=== PATIENT | male | born 1955 | race Caucasian/White ===

== ENCOUNTER 2018-10-06 01:33 | Outpatient (CLI) | payer BC, SELFPAY ==
--- NOTE | 2018-10-06 07:43 | DI.US_ITS ---
SYMPTOM/DIAGNOSIS: RT EPIDIDYMAL MASS, N50.9 TESTICULAR ULTRASOUND: The right testicle measures 4.2 by 3.4 by 2.7 cm. No evidence of a testicular mass is seen. There is normal blood flow to the right testicle. No evidence of torsion is seen. The left testicle measures 4.5 by 3.1 by 2.3 cm. There is normal blood flow. No evidence of torsion. No intratesticular mass is seen. The right epididymis shows a collection of at least three cysts in the proximal body of the right epididymis, the largest measures 1.3 cm. There is also a 0.9 by 0.6 cm. cyst adjacent to the body of the right epididymis. The left epididymis is unremarkable save for a 0.3 cm. epididymal cyst. IMPRESSION: 1. No evidence of an intratesticular mass. 2. Several cysts associated with the right epididymis. No definite solid epididymal mass or abnormal blood flow is seen.
== END 2018-10-06 01:53 ==
PROVIDERS: PCP Family Medicine; Visit Provider Family Medicine
DX: N50.9 Disorder of male genital organs, unspecified (principal); N50.3 Cyst of epididymis
CPT/HCPCS: 76870

== ENCOUNTER 2019-03-01 12:02 | Outpatient (REF) | payer BC, SELFPAY ==
[2019-03-01 22:30] LABS: TSH (W/Ref FT4) 1.53 uIU/mL (0.358-3.74)
[2019-03-03 10:33] LABS: PSA, Screening 3.8 ng/ml (0-4.5)
== END 2019-03-01 12:22 ==
LOC: NCHCN 12:02
PROVIDERS: PCP Family Medicine; Visit Provider Family Medicine
DX: E04.1 Nontoxic single thyroid nodule (principal); Z00.00 Encounter for general adult medical examination without abnormal findings; Z12.5 Encounter for screening for malignant neoplasm of prostate
CPT/HCPCS: 84153; 84443

== ENCOUNTER 2019-04-11 00:59 | Outpatient (CLI) | payer BC, SELFPAY ==
--- NOTE | 2019-04-11 11:53 | DI.MRI_ITS ---
SYMPTOM/DIAGNOSIS: LOW BACK PAIN, M54.5, RADICULAR SYMPTOMS OFF AND ON, S/P NEUROSURGERY, DDD, SPURS, BILAT LEG PAIN LUMBAR SPINE MRI: Comparison is made with plain films dated 11/25/16. T 1, T 2 and STIR sagittal and T 1 and T 2 axial as well as T 1 coronal sequences were performed. There is mild bulging of the L 1-2 disc and mild facet degenerative changes with no significant central canal stenosis or neural foraminal narrowing. At L 2-3, there is asymmetric narrowing of the disc with prominent osteophytes projecting toward the left as well as anteriorly. There is marked loss of disc height as well as broad based disc bulging. There are mild facet degenerative changes and mild ligamentous hypertrophy creating mild central canal stenosis. There is mild right and moderate left neural foraminal narrowing. At L 3-4, there is also severe narrowing of the disc, prominent endplate osteophytes and degenerative signal changes as well as broad based disc bulging. There are mild facet joint degenerative changes and ligamentous hypertrophy combining with the disc bulging to produce moderate central canal stenosis. There is moderate left neural foraminal narrowing. There is a small amount of fluid in the facet joints at this level. At L 4-5, there is loss of disc height eccentric toward the right side with prominent right sided osteophytes and loss of disc height. There is broad based disc bulging. There are also facet degenerative changes which combine to produce moderate central canal stenosis. There is severe right sided neural foraminal narrowing and mild left sided neural foraminal narrowing. The L 5-S 1 disc shows mild loss of height and moderate concentric disc bulging. There are mild facet degenerative changes. There is moderate bilateral neural foraminal encroachment and mild central canal stenosis. A cyst is incidentally noted at the lower pole of the left kidney. The conus medullaris appears normal. The aorta is normal in diameter. IMPRESSION: Multi level degenerative disc changes and facet degenerative changes causing neural foraminal narrowing as well as central canal stenosis, most severe at L 3-4 and L 4-5.
== END 2019-04-11 01:19 ==
PROVIDERS: PCP Family Medicine; Visit Provider Family Medicine
DX: M54.5 Low back pain (principal); M79.604 Pain in right leg; M79.605 Pain in left leg; M51.17 Intervertebral disc disorders with radiculopathy, lumbosacral region; M48.07 Spinal stenosis, lumbosacral region; Z98.890 Other specified postprocedural states
CPT/HCPCS: 72148

== ENCOUNTER 2021-01-24 12:33 | Outpatient (REF) | payer BC, SELFPAY ==
[2021-01-24 15:13] LABS: HCT 44.1 % (40.0-50.0); MCH 33.7 pg (27.0-33.0); MCV 99.1 fL (80-95); MPV 10.2 fL (8.0-11.0); Platelet Count 216 10^3/uL (130-400); RBC 4.45 10^6/uL (4.36-5.78); RDW 13.2 % (11.8-14.1); RDW-SD 48.4 fL; WBC 5.32 10^3/uL (4.4-10.8)
[2021-01-24 15:55] LABS: Hemoglobin A1C 5.3 % (<5.7)
[2021-01-24 16:31] LABS: ALT 62 U/L (16-63); AST 52 U/L (15-37); Albumin 3.8 g/dL (3.4-5.0); Alkaline Phosphatase 68 U/L (46-116); Anion Gap 12.4 mmol/L (3-11); BUN 8 mg/dL (7-18); Bilirubin, Total 0.4 mg/dL (0.2-1.0); CO2 22.6 mmol/L (21.0-32.0); CREATININE 0.9 mg/dL (0.70-1.30); Chloride 106 mmol/L (98-107); Glucose 87 mg/dL (74-106); Potassium 4.5 mmol/L (3.5-5.1); Sodium 141 mmol/L (136-145); Total Protein 7.8 g/dL (6.4-8.2); Vitamin B12 426 pg/mL (193-986)
== END 2021-01-24 12:34 | disposition home or self-care (01) ==
LOC: NCHCN 12:33
PROVIDERS: PCP Family Medicine; Visit Provider Family Medicine
DX: G62.9 Polyneuropathy, unspecified (principal); Z01.818 Encounter for other preprocedural examination
CPT/HCPCS: 80053; 85027; 82607; 83036; 84443

== ENCOUNTER 2021-03-08 04:30 | Outpatient (CLI) | payer BC, SELFPAY ==
--- NOTE | 2021-03-08 09:02 | DI.RAD_ITS ---
Exam(s) XR LUMBAR SPINE 1V ONLY EXAM: XR LUMBAR SPINE 1V ONLY CLINICAL HISTORY: S/P LUMBAR FUSION, Z98.1. TECHNIQUE: 2D digital imaging was performed. Two upright lateral views were performed. COMPARISON: CR LUMBAR SPINE COMPLETE from 11/25/2016 CR LUMBAR SPINE COMPLETE from 11/25/2016 FINDINGS: There is been posterior fusion with hardware in place from the L4 through S1 levels compared with the previous exam. A disc spacer is seen at L5-S1. Degenerative disc changes with endplate osteophytes are noted throughout. The aorta is calcified and appears normal in diameter. IMPRESSION: Degenerative and postsurgical changes. DATA REPOSITORY: RADIATION DOSE DELIVERED:
== END 2021-03-08 04:50 ==
PROVIDERS: PCP Family Medicine; Visit Provider Physician Assistant Surgical
DX: Z98.1 Arthrodesis status (principal); M51.37 Other intervertebral disc degeneration, lumbosacral region
CPT/HCPCS: 72020

== ENCOUNTER 2021-05-14 01:31 | Outpatient (CLI) | payer BC, SELFPAY ==
--- NOTE | 2021-05-14 09:14 | DI.RAD_ITS ---
Exam(s) XR LUMBAR SPINE COMPLETE EXAM: XR LUMBAR SPINE COMPLETE CLINICAL HISTORY: S/P LUMBAR FUSION,Z98.1. TECHNIQUE: 2D digital imaging was performed. COMPARISON: CR LUMBAR SPINE COMPLETE from 11/25/2016 CR LUMBAR SPINE COMPLETE from 11/25/2016 CR XR LUMBAR SPINE 1V ONLY from 03/08/2021 CR XR LUMBAR SPINE 1V ONLY from 03/08/2021 FINDINGS: Posterior fusion hardware is again noted spanning L4 through S1, unchanged.. A disc spacer is seen a t L5-S1. There are severe degenerative disc changes throughout. There is no evidence of compression fracture. Multiple surgical clips are noted in the right upper quadrant. The aorta shows calcifica tion but is normal in diameter. IMPRESSION: Stable appearance of degenerative changes and lower lumbar spine fusion hardware. DATA REPOSITORY: RADIATION DOSE DELIVERED:
== END 2021-05-14 01:51 ==
PROVIDERS: PCP Family Medicine; Visit Provider Neurological Surgery
DX: M47.816 Spondylosis without myelopathy or radiculopathy, lumbar region (principal); M43.26 Fusion of spine, lumbar region; Z98.1 Arthrodesis status
CPT/HCPCS: 72110

== ENCOUNTER 2021-08-30 02:13 | Outpatient (CLI) | payer BC, SELFPAY ==
--- NOTE | 2021-08-30 08:30 | DI.RAD_ITS ---
Exam(s) XR LUMBAR SPINE FLEX/EXT ONLY EXAM: XR LUMBAR SPINE FLEX/EXT ONLY CLINICAL HISTORY: LUMBAR FACET ARTHROPATHY M47.816 TECHNIQUE: 2D digital imaging was performed. Lateral flexion and extension views were performed. COMPARISON: CR XR LUMBAR SPINE COMPLETE from 05/14/2021 FINDINGS: Posterior fusion hardware is again noted spanning L4 through S1. Disc spacer is seen at L5-S1. The hardware appears intact. There is no change in the alignment. No significant subluxation with flexi on or extension. Somewhat limited range of motion. Degenerative disc changes at the more superior l evels. IMPRESSION: Stable appearance of posterior fusion hardware from L4 through S1.
== END 2021-08-30 02:33 ==
PROVIDERS: PCP Family Medicine; Visit Provider Neurological Surgery
DX: M47.816 Spondylosis without myelopathy or radiculopathy, lumbar region (principal); Z98.1 Arthrodesis status
CPT/HCPCS: 72120

== ENCOUNTER 2021-12-03 13:28 | Outpatient (REF) | payer BC, SELFPAY ==
[2021-12-03 19:21] LABS: HCT 44.8 % (40.0-50.0); MCH 33.5 pg (27.0-33.0); MCHC 33.5 % (32.0-36.0); MPV 11.1 fL (8.0-11.0); Platelet Count 259 10^3/uL (130-400); RBC 4.48 10^6/uL (4.36-5.78); RDW 13.2 % (11.8-14.1); RDW-SD 49.6 fL; WBC 5.85 10^3/uL (4.4-10.8)
[2021-12-03 19:31] LABS: ALT 35 U/L (16-63); AST 35 U/L (15-37); Albumin 3.8 g/dL (3.4-5.0); Alkaline Phosphatase 79 U/L (46-116); Anion Gap 11.6 mmol/L (3-11); BUN 9 mg/dL (7-18); Bilirubin, Total 0.4 mg/dL (0.2-1.0); CO2 24.4 mmol/L (21.0-32.0); CREATININE 0.8 mg/dL (0.70-1.30); Calcium 9.2 mg/dL (8.5-10.1); Chloride 103 mmol/L (98-107); Glucose 85 mg/dL (74-106); Potassium 4.3 mmol/L (3.5-5.1); Sodium 139 mmol/L (136-145); Total Protein 7.8 g/dL (6.4-8.2)
[2021-12-04 21:44] LABS: PSA, Screening 3.1 ng/mL (0.0-4.5)
== END 2021-12-03 13:29 | disposition home or self-care (01) ==
LOC: NCHCN 13:28
PROVIDERS: PCP Family Medicine; Visit Provider Family Medicine
DX: Z00.00 Encounter for general adult medical examination without abnormal findings (principal); Z01.818 Encounter for other preprocedural examination; Z12.5 Encounter for screening for malignant neoplasm of prostate
CPT/HCPCS: 80053; 84153; 85027

== ENCOUNTER 2022-01-09 01:39 | Outpatient (CLI) | payer BC, SELFPAY ==
--- NOTE | 2022-01-09 | DI.RAD_ITS ---
Exam(s) XR LUMBAR SPINE 1V ONLY EXAM: XR LUMBAR SPINE 1V ONLY CLINICAL HISTORY: LUMBAR PARS DEFECT M43.06 POSTPROCEDURAL STATUS. TECHNIQUE: 2D digital imaging was performed. COMPARISON: CR XR LUMBAR SPINE FLEX/EXT ONLY from 08/30/2021 FINDINGS: Two views performed standing. Again noted is posterior fusion hardware, however, there appears to have been possible revision with the fusion rods and with the lower most screw being at the S2 level. Distal tip of this S2 screw ext ends slightly beyond the anterior cortex of the sacrum. Also intervertebral disc space device at L5-S1 without retropulsion. There are bilateral intrapedicu lar screws at all 3 levels. At L L4 and L5 levels these appear to be in satisfactory position relati ve to the superior endplates. The fused levels appear unchanged. Advanced this space narrowing is noted at 1 level above the fusio n (L3-4). Also significant degenerative disc disease again noted unchanged at L2-3. L1-2 level cont inues to exhibit normal disc height. IMPRESSION: Compared to 08/30/2021 there appears to been interval revision of posterior fusion hardware as descri bed above. There is no evidence of hardware loosening no radiographic evidence of osteomyelitis. Th e lower most screw (which is at the S2 level) is extending slightly anterior to the anterior cortex o f the sacrum. DATA REPOSITORY: RADIATION DOSE DELIVERED:
== END 2022-01-09 01:59 ==
PROVIDERS: PCP Family Medicine; Visit Provider Thoracic Surgery (Cardiothoracic Vascular Surgery)
DX: Z98.890 Other specified postprocedural states (principal)
CPT/HCPCS: 72020

== ENCOUNTER → 2022-03-13 01:40 | Outpatient (CLI) | payer BC, SELFPAY ==
--- NOTE | 2022-03-13 11:14 | DI.RAD_ITS ---
Exam(s) XR LUMBAR SPINE FLEX/EXT ONLY EXAM: XR LUMBAR SPINE FLEX/EXT ONLY INDICATION: S/P LUMBAR FUSION, Z98.1. COMPARISON: CR XR LUMBAR SPINE FLEX/EXT ONLY from 08/30/2021 CR XR LUMBAR SPINE 1V ONLY from 01/09/2022 TECHNIQUE: 2D digital imaging was performed. Two views were obtained. FINDINGS: Vertical rods and pedicle screws are seen from L4 through S2. Marked degenerative changes are seen i n the lower lumbar spine with disc space narrowing, facet arthropathy and endplate osteophytes. No s ignificant subluxation is seen with flexion or extension. Atherosclerosis is seen in the soft tissue s. IMPRESSION: DATA REPOSITORY: RADIATION DOSE DELIVERED:
== END ==
PROVIDERS: PCP Family Medicine; Visit Provider Physician Assistant Medical
DX: Z98.1 Arthrodesis status (principal); M51.36 Other intervertebral disc degeneration, lumbar region; M47.816 Spondylosis without myelopathy or radiculopathy, lumbar region
CPT/HCPCS: 72120

== ENCOUNTER 2022-08-14 08:05 | Outpatient (CLI) | payer BC, SELFPAY ==
[2022-08-14 08:12] VITALS: BP 138/85; PULSE 72; RESP 20; TEMP 36.8; O2SAT 96
--- NOTE | 2022-08-14 08:45 | DI.RAD_ITS ---
Exam(s) XR PAIN CLINIC LUMBAR SP 2V EXAM: XR PAIN CLINIC LUMBAR SP 2V CLINICAL HISTORY: Dx: Lumbar Radiculopathy TECHNIQUE: 2D and realtime digital imaging was performed. COMPARISON: No exams were available for comparison FINDINGS: C-arm fluoroscopy was utilized by Dr. Partida during lumbar epidural injection. Hard copy shows injecti on at the sacral level. IMPRESSION: RADIATION DOSE DELIVERED: Ka,r=9.18 mGy
[2022-08-14] MEDS: Dexamethasone Sod. Phos./Pres-Free 10 MG/ML VIAL IJ (08:48)
--- NOTE | 2022-08-14 08:50 | PDOC.PAIN ---
Date of service: 08/14/22 Time of Service: 08:55 Pain Clinic Procedure Note Procedure Note Procedure Note: CAUDAL EPIDURAL STEROID WITH CATHETER INJECTION PROCEDURE NOTE COMMENTS: He was previously evaluated by Dr. Spann at [facility] and he recommended this procedure. The patient does have low back pain with pain radiating down both legs. He has had previous lumbar fusion and he is allergic to iodine contrast dye. Pre-procedure pain VAS was 6/10. Dx: Lumbar radiculopathy Johan Del Valle has been referred to the [facility] for lumbar epidural steroid injection. Patient was greeted by the nurse who verified the patient?s name and .? Patient was then taken to the fluoroscopy suite. The patient was interviewed and the medical record was reviewed.? There were no medical, pharmacologic, radiographic, or other structural contraindications to attempting fluoroscopically guided caudal epidural steroid injection. Risks and expected side effects as well as potential benefits of the procedure were reviewed and voiced concerns addressed.? The patient consent form was signed.? Standard time-out procedure was performed. The patient was placed in the prone position on the fluoroscopy table and automated blood pressure cuff, pulse oximeter, and 3 lead EKG was applied.? The skin entry point for entering/approaching the sacral hiatus was marked.? Following thorough chlorhexadine preparation of the skin and draping and 1% lidocaine infiltration of the skin entry point and subcutaneous tissues, a 17 gauge Touhy needle was placed under fluoroscopic guidance through the sacral hiatus.? Needle tip placement and depth were aided and confirmed by fluoroscopy. There was no paresthesia or return of blood or CSF through the needle. A 19G Arrow spinal catheter was threaded to the L5 height.? Aspiration was performed with no resulting blood or clear fluid. One cc of depomedrol (80 mg/cc) was injected.? This was followed by 2 cc of 1% Lidocaine to flush the catheter.?There was not any unusual discomfort expressed.? The needle and catheter were removed together without difficulty. Vital signs were stable throughout the procedure and were as recorded in nursing records.? Follow up plans and appointments were discussed.? Post procedure instruction was given as documented in nursing records and having met discharge criteria and was discharged from the [facility]. Post-procedure pain VAS was 2/10. He was informed that he could complete this procedure up to 3 times per 12 months if it is helpful. Epifanio Partida DO, MPH [facility]
[2022-08-14 08:54] VITALS: BP 142/97; PULSE 71; RESP 21; O2SAT 97
== END 2022-08-14 08:06 | disposition home or self-care (01) ==
LOC: PC 08:05
PROVIDERS: PCP Family Medicine; Visit Provider Preventive Medicine Occupational Medicine
DX: M54.16 Radiculopathy, lumbar region (principal)
CPT/HCPCS: 62323; 72100

== ENCOUNTER 2022-11-06 13:04 | Outpatient (REF) | payer MEDICARE, SELFPAY ==
[2022-11-06 15:19] LABS: Calculated LDL 128 mg/dL (<100); Cholesterol 191 mg/dL (<200); HDL Cholesterol 44 mg/dL (40-60); Triglyceride 98 mg/dL (<150)
[2022-11-07 20:25] LABS: PSA, Screening 2.4 ng/mL (<=4.5)
== END 2022-11-06 13:05 | disposition home or self-care (01) ==
LOC: NCHCN 13:04
PROVIDERS: PCP Family Medicine; Visit Provider Family Medicine
DX: Z00.00 Encounter for general adult medical examination without abnormal findings (principal)
CPT/HCPCS: 80061; 84153

== ENCOUNTER 2022-12-18 00:43 | Outpatient (CLI) | payer MEDICARE, SELFPAY ==
--- NOTE | 2022-12-18 12:15 | DI.US_ITS ---
Exam(s) US THYROID EXAM: US THYROID CLINICAL HISTORY: RT THYROID NODULE, E04.1. TECHNIQUE: Ultrasound thyroid performed using standard protocol. COMPARISON: No exams were available for comparison FINDINGS: ISTHMUS: 3.0 mm RIGHT LOBE: Size: 4.2 x 2.1 x 2.1 cm Echogenicity: Normal. Vascularity: Normal. Nodules: There is a 2.6 x 1.6 x 1.5 cm mixed cystic and solid mass in the right thyroid lobe. It is isoechoic. Punctate echogenic foci are seen internally. The finding is consistent with a TI rads le montrell 4 nodule. Due to its size, biopsy is recommended. LEFT LOBE: Size: 4.2 x 1.5 x 1.5 cm Echogenicity: Normal. Vascularity: Normal. Nodules: No suspicious nodules are seen. Two less than 5 mm nodules are seen in the left lobe. No follow-up is warranted. OTHER FINDINGS: Unremarkable lymph nodes are seen in the neck. IMPRESSION: 2.6 x 1.6 x 1.5 cm TI rads level 4 nodule in the right lobe. Due to its size, biopsy is recommended. DATA REPOSITORY:
== END 2022-12-18 01:03 ==
PROVIDERS: PCP Family Medicine; Visit Provider Family Medicine
DX: E04.1 Nontoxic single thyroid nodule (principal); E07.89 Other specified disorders of thyroid
CPT/HCPCS: 76536

== ENCOUNTER 2023-02-10 08:21 | Inpatient (IN) | payer MEDICARE, SELFPAY ==
[2023-02-10] VITALS (47 sets, daily range): BP systolic 117–151; BP diastolic 63–94; PULSE 41–105; RESP 13–29; TEMP 36.5–37.4; O2SAT 88–99
--- NOTE | 2023-02-10 08:15 | RT.EKG_ITS ---
APPROVED REPORT Exam: Resting ECG Reason for Exam: left sided chest pain Patient Location: E HR:45 bpm ECG Measurements Heart Rate 45 AXIS OH [id number] P [id number] QRSd 98 QRS -26 QT 523 T 59 QTc 451 Conclusion Atrial fibrillation...? atrial activity Some intermittent P waves and irregulqarity
--- NOTE | 2023-02-10 08:30 | DI.RAD_ITS ---
Exam(s) XR PORTABLE CHEST AP EXAM: XR PORTABLE CHEST AP CLINICAL HISTORY: CP left TECHNIQUE: 2D digital imaging was performed of the chest. One image was obtained. An AP view was ob tained. COMPARISON: CR CHEST 2 VIEWS PA,LAT from 07/28/2017 FINDINGS: MEDIASTINUM: Normal. HEART: Normal. PULMONARY VASCULATURE: Normal. LUNGS: Clear. PLEURAL SPACE: No pleural effusion or pneumothorax. BONE:Within normal limits for the patient's age. OTHER FINDINGS:Normal. IMPRESSION: No acute pulmonary findings. DATA REPOSITORY: RADIATION DOSE DELIVERED:
--- NOTE | 2023-02-10 08:31 | ED.GENADUL_ITS ---
Discharge Plan Disposition Patient Disposition: Admit to [facility] Condition: Improving Discharge Details Clinical Impression: Acute pancreatitis Admit Date/Time: 02/10/23 10:51 Admit Provider: Alexis Mchugh Attending Provider: Alexis Mchugh Primary Care Provider: Suzie Bal V ED Provider: Lola Girard Discharge Data Discharge Date/Time-TO BE ENTERED AT DEPARTURE: 02/10/23 12:06 Medical Decision Making 0915 EKG: irregular bradycardic rhythm, some Q waves, narrow QRS, no change vs 08/11. Chest x-ray: no acute disease. There is no free air under the diaphragm. Case discussed with Dr. Weinstein, hospitalist as well as the patient. Patient has pancreatitis on CT and his lipase is greater than 375. He is n.p.o., getting IV fluid, pain controlled, and being admitted to [facility] telemetry. He has a history of bradycardia and we will admit him to telemetry because of this. Imaging Data Radiologic Study: Attestation: I personally reviewed and interpreted this imaging study as follows: Imaging: CT Scan (Patient Name: Johan Del Valle #: [id number]: ER Ordering Provider: Lola Girard M.D. : [facility] ER Primary Care Provider: Suzie Bal M.D.Date of Exam: 02/10/23Sex: M : 1955ge: 68 Exam(s) a CT:CT abdomen & pelvis ) Radiologist's impression: Patient Name: Johan Del Valle #: [id number]: ER Ordering Provider: Lola Girard M.D. : [facility] ER Primary Care Provider: Suzie Bal M.D.Date of Exam: 02/10/23Sex: M : 1955ge: 68 Exam(s) a CT:CT abdomen & pelvis wo Exam(s) CT ABDOMEN PELVIS WO EXAM: CT ABDOMEN PELVIS WO CLINICAL HISTORY: L sided abd pain. TECHNIQUE: Imaging Protocol: Axial computed tomography images with coronal and sagittal reformatted images were created and reviewed. COMPARISON: CT CHEST FOR PULMONARY EMBOLUS from 07/28/2017 FINDINGS: ABDOMEN: Lung Bases: There is dependent atelectasis present. Liver: There is diffuse decreased attenuation of the liver consistent with fatty infiltration. There are at least 2 nodules identified which are hyperdense relative to the fatty liver. The largest measures 1.7 x 1.0 cm and is adjacent to the gallbladder fossa. The smaller measures 0.9 cm and is located in the posterior segment of the right lobe of the liver. Gallbladder and biliary tract: The patient appears to have had a Whipple's procedure with resection of the gallbladder, pancreatic head and duodenum. There is no biliary ductal dilatation. Pancreas: The pancreatic body and tail are of normal caliber. There is stranding seen around the pancreas. No focal fluid collection is seen to suggest an pseudocyst or abscess. Spleen: Normal. Kidneys: Normal size, contour and axis.No radiodense stones or obstructive uropathy. There are well-circumscribed round hypodensities in the left kidney. The larger measures 3.6 x 3.4 cm. The Hounsfield units are -13.7. The smaller lesion measures 1.6 x 1.6 cm and has Hounsfield units of -5. No follow-up is recommended. Adrenal glands: No mass is seen. Lymph nodes: Within normal limits. Abdominal Aorta: Abdominal portion non-dilated. Atherosclerosis is present. PELVIS: Bladder:Symmetric distention, no gross wall thickening. Bowel: There are diverticula seen in the colon, but no evidence of acute diverticulitis. Postsurgical changes are seen in the proximal bowel as described above. No evidence of bowel wall thickening or obstruction. There is no evidence of appendicitis. Peritoneal cavity: No ascites, collection or mesenteric inflammatory response. No free air. Reproductive organs: The prostate gland is enlarged. Bones: Within normal limits. Postsurgical changes are seen in the lumbosacral spine. No aggressive osseous lesions are identified. Soft Tissues: Within normal limits. IMPRESSION: 1. Status post Whipple's procedure. 2. Inflammatory stranding seen around the pancreas suspicious for pancreatitis. Please correlate clinically. 3. Two nodule seen in the liver on this noncontrast examination. Follow-up with postcontrast CT scan or pre and postcontrast MRI is recommended. Comparison with prior examination is recommended. Lab Data Lab results reviewed: Yes I reviewed the patient's lab results. Lab results narrative: Lab results reveal a normal white blood cell count and H&H. Patient's lactic acid is 4.3 and we are giving him 30 cc/kg of IV fluid. The patient also has an elevated anion gap at 15.7. Magnesium is 1.7 and AST is 64. AG and AST have been elevated in the past. HPI General Date/Time Provider Initiated Documentation: 02/10/23 08:29 . HPI Narrative: This 68-year-old male patient presents with a chief complaint of left upper quadrant pain radiating to his shoulder blade that began overnight. Patient states that this is sharp and constant in nature. Nothing really makes it better or worse. It is not changed by movement or inspiration. Patient states he did vomit once overnight. He has no diarrhea. Patient denies fever, chills, or URI symptoms. Patient reports that at baseline he has a slow heart rate. 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 Of note, the patient drinks 5 or more beers and/or whiskeys per day. He is a non-smoker. Related Data Home Medications Medication Instructions Recorded Confirmed acyclovir 400 mg tablet (Zovirax) 1 tab PO DAILY 02/21/13 02/10/23 cholecalciferol (vitamin D3) 10 400 unit PO DAILY 05/31/14 02/10/23 mcg (400 unit) capsule (Vitamin D3) glucosamine sulfate 2KCl 1,000 mg 1,000 mg PO DAILY 05/31/14 02/10/23 tablet lorazepam 1 mg tablet (Ativan) 1 tab PO HS PRN #90 tabs 11/05/16 02/10/23 acetaminophen 500 mg oral powder 500 mg PO Q6H PRN 01/02/23 02/10/23 packet (Tylenol Extra Strength) cholecalciferol (vitamin D3) 10 10 mcg PO DAILY 01/02/23 02/10/23 mcg (400 unit) capsule lidocaine 5 % topical cream 1 applic topical BID PRN 01/02/23 02/10/23 sildenafil 100 mg tablet 100 mg PO DAILY PRN 01/02/23 02/10/23 pantoprazole 20 mg tablet,delayed 20 mg PO DAILY 01/08/23 02/10/23 release Allergies Allergy/AdvReac Type Severity Reaction Status Date / Time azithromycin [From Zithromax] Allergy Severe Verified 02/10/23 09:44 diclofenac [From Voltaren] Allergy Severe Verified 02/10/23 09:44 iodine Allergy Severe Verified 02/10/23 09:44 iohexol Allergy Intermediate Itching Unverified 02/10/23 09:44 hydrocodone Allergy Unknown SEVERE Unverified 02/10/23 09:44 ITCHING shrimp AdvReac Mild Other (See Unverified 02/10/23 09:44 Comment) General Stated Complaint: Chest Pain BLAISE: 3 Review of Systems Constitutional Constitutional: Denies chills, Denies fever(s), Denies headache(s) and Denies weakness Eyes Eyes: Denies diplopia and Reports other (no redness) ENT Ears, Nose, Mouth, and Throat: Denies otalgia, Denies headache(s), Denies nasal congestion, Denies nasal discharge, Denies neck pain and Denies sore throat Cardiovascular Cardiovascular: Denies chest pain, Denies palpitations and Denies dyspnea Respiratory Respiratory: Denies cough and Denies dyspnea Gastrointestinal Gastrointestinal: Denies diarrhea Genitourinary Genitourinary: Denies difficulty urinating and Denies dysuria Musculoskeletal Musculoskeletal: Denies myalgias, Denies muscle weakness, Denies neck pain, Denies numbness and Reports other (edema) Integumentary/Breasts Skin/Breast: Denies change in pigmentation and Denies rash Neurologic Neurologic: Denies headache(s), Denies numbness and Denies weakness Endocrine Endocrine: Denies palpitations PFSH All Active Problems (Updated 02/10/23 @ 12:05 by oS Chase NP) Hypomagnesemia (Acute) Acid reflux (Chronic) Abdominal pain (Acute) Discharge planning issues (Acute) DVT prophylaxis (Acute) Acute pancreatitis (Acute) Thyroid nodule (Acute) Lumbar post-laminectomy syndrome (Acute) Medical History (Updated 02/10/23 @ 12:05 by So Chase NP) Actinic keratosis Adenocarcinoma of duodenum Allergic to IV contrast Anxiety disorder Arthritis Barretts esophagus Basal cell carcinoma Benign prostatic hyperplasia Bilateral cataracts Cancer Cervicalgia Decreased hearing of left ear Depressive disorder Dermatitis Difficulty sleeping Diverticulosis Encounter for medication monitoring Epididymal mass Former smoker Granuloma annulare 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 Hearing loss in left ear Herpes simplex ophthalmicus History of adenomatous polyp of colon Insomnia Knee pain Lipid disorder Low back pain Lumbar facet arthropathy Lumbar radiculopathy Lumbar stenosis Lumbosacral radiculopathy Lumbosacral spinal stenosis Melanoma Muscle spasms of neck Nodule of right lobe of thyroid gland Pars defect Peripheral neuropathy Polyneuropathy Right leg pain Sciatica Shoulder lesion, unspecified, right shoulder Shoulder pain, bilateral Skin disease Sleep disturbance Spinal stenosis Spondylolisthesis Squamous cell carcinoma in situ of skin Stomach ulcer Varicose veins of both lower extremities Ventral incisional hernia without obstruction or gangrene Surgical History (Updated 01/02/23 @ 13:04 by Bridgette Tracy) Appendectomy (11/29/99) [facility] H/O hernia repair H/O Whipple procedure History of lumbar spinal fusion Open Carpal Tunnel release (~08/2008) B/L Repair of inguinal hernia (06/05/00) left S/P lumbar fusion Family History Mother , cerebral aneurysm No problems noted. Father , bladder CA No problems noted. Brother Parkinsons disease Social History Smoking/Tobacco Use Status: Former Tobacco Use Smoking risk assessment performed?: Yes Alcohol Intake: current Drug use: Never Substance use type: does not use Do you feel safe at home: Yes Do you feel safe in your relationship?: Yes Exam Const General: no acute distress, well developed, well groomed and not in acute distress Nutritional Appearance: well nourished Orientation: alert and oriented x3 [facility] Head: normocephalic and atraumatic Ears: external ears normal Mouth: oropharynx normal and moist mucous membranes Throat: posterior oropharynx normal Eyes Conjunctivae: conjunctivae normal Neck Neck: full ROM and supple Chest Chest: normal inspection of the chest Resp Effort & Inspection: normal respiratory effort Auscultation: clear to auscultation bilaterally Cardio Rate: regular rate Rhythm: regular rhythm Heart Sounds: no murmurs and no rubs GI Inspection: normal to inspection Palpation: soft, tender (L side and epigastrium) and other (non distended, has guarding L side, non tympanetic) Auscultation: abnormal bowel sounds (decreased) Skin General skin exam: no rashes or lesions noted and other (pink, warm, dry) Neuro General: patient alert, patient awake and patient oriented x3 Speech: speech normal Motor: other (NEVAREZ) Sensory Exam: no sensory deficits noted Extrem General: normal to inspection, full ROM and pedal edema present Psych Mental Status: mental status grossly normal Speech and Movement: speech and movement normal Affect: normal affect Course Vital Signs Vital signs: Vital Signs Pulse 46 L 02/10/23 08:25 Respiratory Rate 18 02/10/23 08:25 Blood Pressure 120/67 02/10/23 08:25 Pulse Oximetry 97 02/10/23 08:25 Pulse 46 L 02/10/23 08:25 Respiratory Rate 18 02/10/23 08:25 Blood Pressure 120/67 02/10/23 08:25 Pulse Oximetry 97 02/10/23 08:25 Oxygen Delivery Method Room Air 02/10/23 08:25 Oxygen Flow Rate 0 02/10/23 08:25
--- NOTE | 2023-02-10 08:49 | DI.CT_ITS ---
Exam(s) CT ABDOMEN PELVIS WO EXAM: CT ABDOMEN PELVIS WO CLINICAL HISTORY: L sided abd pain. TECHNIQUE: Imaging Protocol: Axial computed tomography images with coronal and sagittal reformatted images were created and reviewed. COMPARISON: CT CHEST FOR PULMONARY EMBOLUS from 07/28/2017 FINDINGS: ABDOMEN: Lung Bases: There is dependent atelectasis present. Liver: There is diffuse decreased attenuation of the liver consistent with fatty infiltration. There are at least 2 nodules identified which are hyperdense relative to the fatty liver. The largest eny sures 1.7 x 1.0 cm and is adjacent to the gallbladder fossa. The smaller measures 0.9 cm and is loca adalberto in the posterior segment of the right lobe of the liver. Gallbladder and biliary tract: The patient appears to have had a Whipple's procedure with resection o f the gallbladder, pancreatic head and duodenum. There is no biliary ductal dilatation. Pancreas: The pancreatic body and tail are of normal caliber. There is stranding seen around the reynolds creas. No focal fluid collection is seen to suggest an pseudocyst or abscess. Spleen: Normal. Kidneys: Normal size, contour and axis.No radiodense stones or obstructive uropathy. There are well-c ircumscribed round hypodensities in the left kidney. The larger measures 3.6 x 3.4 cm. The Hounsfie ld units are -13.7. The smaller lesion measures 1.6 x 1.6 cm and has Hounsfield units of -5. No fol low-up is recommended. Adrenal glands: No mass is seen. Lymph nodes: Within normal limits. Abdominal Aorta: Abdominal portion non-dilated. Atherosclerosis is present. PELVIS: Bladder:Symmetric distention, no gross wall thickening. Bowel: There are diverticula seen in the colon, but no evidence of acute diverticulitis. Postsurgica l changes are seen in the proximal bowel as described above. No evidence of bowel wall thickening or obstruction. There is no evidence of appendicitis. Peritoneal cavity: No ascites, collection or mesenteric inflammatory response. No free air. Reproductive organs: The prostate gland is enlarged. Bones: Within normal limits. Postsurgical changes are seen in the lumbosacral spine. No aggressive o sseous lesions are identified. Soft Tissues: Within normal limits. IMPRESSION: 1. Status post Whipple's procedure. 2. Inflammatory stranding seen around the pancreas suspicious for pancreatitis. Please correlate cli nically. 3. Two nodule seen in the liver on this noncontrast examination. Follow-up with postcontrast CT scan or pre and postcontrast MRI is recommended. Comparison with prior examination is recommended. RADIATION DOSE DELIVERED: 1,002.38mGy.cm Total DLP DATA REPOSITORY: All CT scans at this facility are submitted to the National Radiology Data Registry (NRDR) Dose Index Registry (DIR) with the [employer] (ACR). RADIATION OPTIMIZATION: All CT scans at this facility use at least one of these dose optimization te chniques: automated exposure control; mA and/or kV adjustment per patient size (includes targeted exa ms where dose is matched to clinical indication); or iterative reconstruction.
[2023-02-10 09:09] LABS: Lactate 4.3 mmol/L (0.6-1.4)
[2023-02-10 09:14] LABS: Abs Immature Grans 0.03 10^3/uL (0.0-0.06); Absolute Basophil Count 0.06 10^3/uL (0.0-0.2); Absolute Eosinophil Count 0.01 10^3/uL (0.0-0.7); Absolute Lymphocyte Count 0.72 10^3/uL (1.2-3.4); Absolute Monocyte Count 0.73 10^3/uL (0.1-0.8); Absolute Neutrophil Count 8.05 10^3/uL (1.2-6.7); Basophils % 0.6; Eosinophils % 0.1; HCT 42.3 % (40.0-50.0); HGB 14.6 g/dL (13.5-17.5); Immature Grans % 0.3; Lymphocytes % 7.5; MCH 34.3 pg (27.0-33.0); MCHC 34.5 % (32.0-36.0); MCV 99 fL (80-95); MPV 10.3 fL (8.0-11.0); Monocytes % 7.6; Neutrophils % 83.9; Platelet Count 194 10^3/uL (130-400); RBC 4.26 10^6/uL (4.36-5.78); RDW 14.6 % (11.8-14.1); RDW-SD 53.6 fL
[2023-02-10] MEDS: Ondansetron 4 MG/2 ML VIAL 8 MG IVP (09:15)
[2023-02-10] MEDS: Normal Saline 1,000 ML 1000 ML IV (09:15)
[2023-02-10] MEDS: HYDROmorphone 2 MG/ML SYR 1 MG IVP ×3 (09:16→11:13)
[2023-02-10 09:29] LABS: ALT 55 U/L (16-63); AST 64 U/L (15-37); Albumin 3.8 g/dL (3.4-5.0); Alkaline Phosphatase 63 U/L (46-116); Anion Gap 15.7 mmol/L (3-11); BUN 10 mg/dL (7-18); Bilirubin, Total 0.5 mg/dL (0.2-1.0); CO2 22.3 mmol/L (21.0-32.0); CREATININE 0.9 mg/dL (0.70-1.30); Calcium 9.2 mg/dL (8.5-10.1); Chloride 102 mmol/L (98-107); Estimated GFR 92.45 (mL/min/1.73m2); Glucose 103 mg/dL (74-106); Magnesium 1.7 mg/dL (1.8-2.4); Sodium 140 mmol/L (136-145); Total Protein 8.1 g/dL (6.4-8.2); Troponin I < 50 ng/L (<or=60)
[2023-02-10] MEDS: ACETAMINOPHEN 1,000 MG/100 ML BTL 400 MG IVPB (10:04)
[2023-02-10] MEDS: Normal Saline 1,000 ML 1250 ML IV (10:10)
--- NOTE | 2023-02-10 10:19 | NUR.NOTE ---
Attempted to get urine, pt unable to give sample, will try again after 2nd liter of fluid, ERNESTINE
[2023-02-10 11:05] LABS: Lipase > 375 U/L (16-77)
[2023-02-10 11:08] LABS: Source Nasal/Nares
[2023-02-10] MEDS: Normal Saline 500 ML 1000 ML IV (11:10)
[2023-02-10 11:32] LABS: Lactate 1.9 mmol/L (0.6-1.4)
--- NOTE | 2023-02-10 11:41 | HPE_ITS ---
Date of service: 02/10/23 Time of Service: 11:41 Assessment and Plan Assessment and plan (1) Acute pancreatitis: Status: Acute Assessment and plan: LR 125 ml/h (1.5ml/kg/h) Dilaudid for pain Ondansetron for nausea Clear liquid diet; adv as kieran Lipase >375 AST 64 Troponin negative (2) Abdominal pain: Status: Acute Assessment and plan: See above (3) Hypomagnesemia: Status: Acute Assessment and plan: Mag 1.7 - Mag 2 gm IVPB ordered; monitor (4) Acid reflux: Status: Chronic Assessment and plan: Continue home pantoprazole (5) DVT prophylaxis: Status: Acute Assessment and plan: Enoxaparin 40 mg sq daily (6) Discharge planning issues: Status: Acute Assessment and plan: Home when stable; no services History of Present Illness History of Present Illness Chief Complaint: Abdominal pain Narrative: This 68-year-old male patient presented to the [facility] with a chief complaint of left upper quadrant pain radiating to his shoulder blade that began overnight.? Patient stated that this is sharp and constant in nature.? Nothing really made it better or worse.? It is not changed by movement or inspiration.? Patient stated he did vomit once overnight.? He had no diarrhea.? Patient denies fever, chills, or URI symptoms.? Patient reports that at baseline he has a slow heart rate.? 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 Of note, the patient drinks 5 or more beers and/or whiskeys per day.? He is a non- smoker. He is placed on the medical floor for observation, IV fluids, pain meds and antiemetics, stable. Review of Systems All systems reviewed & are unremarkable except as noted in HPI and below PFSH All Active Problems (Updated 02/10/23 @ 12:05 by So Chase NP) Hypomagnesemia (Acute) Acid reflux (Chronic) Abdominal pain (Acute) Discharge planning issues (Acute) DVT prophylaxis (Acute) Acute pancreatitis (Acute) Thyroid nodule (Acute) Lumbar post-laminectomy syndrome (Acute) Medical History (Updated 02/10/23 @ 12:05 by So Chase NP) Actinic keratosis Adenocarcinoma of duodenum Allergic to IV contrast Anxiety disorder Arthritis Barretts esophagus Basal cell carcinoma Benign prostatic hyperplasia Bilateral cataracts Cancer Cervicalgia Decreased hearing of left ear Depressive disorder Dermatitis Difficulty sleeping Diverticulosis Encounter for medication monitoring Epididymal mass Former smoker Granuloma annulare 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 Hearing loss in left ear Herpes simplex ophthalmicus History of adenomatous polyp of colon Insomnia Knee pain Lipid disorder Low back pain Lumbar facet arthropathy Lumbar radiculopathy Lumbar stenosis Lumbosacral radiculopathy Lumbosacral spinal stenosis Melanoma Muscle spasms of neck Nodule of right lobe of thyroid gland Pars defect Peripheral neuropathy Polyneuropathy Right leg pain Sciatica Shoulder lesion, unspecified, right shoulder Shoulder pain, bilateral Skin disease Sleep disturbance Spinal stenosis Spondylolisthesis Squamous cell carcinoma in situ of skin Stomach ulcer Varicose veins of both lower extremities Ventral incisional hernia without obstruction or gangrene Surgical History (Updated 01/02/23 @ 13:04 by Bridgette Tracy) Appendectomy (11/29/99) [facility] H/O hernia repair H/O Whipple procedure History of lumbar spinal fusion Open Carpal Tunnel release (~08/2008) B/L Repair of inguinal hernia (06/05/00) left S/P lumbar fusion Family History Mother , cerebral aneurysm No problems noted. Father , bladder CA No problems noted. Brother Parkinsons disease Social History Smoking/Tobacco Use Status: Former Tobacco Use Smoking risk assessment performed?: Yes Alcohol Intake: current Drug use: Never Substance use type: does not use Do you feel safe at home: Yes Do you feel safe in your relationship?: Yes Meds Allergies and Home Medications Allergies Allergy/AdvReac Type Severity Reaction Status Date / Time azithromycin [From Zithromax] Allergy Severe Verified 02/10/23 09:44 diclofenac [From Voltaren] Allergy Severe Verified 02/10/23 09:44 iodine Allergy Severe Verified 02/10/23 09:44 iohexol Allergy Intermediate Itching Unverified 02/10/23 09:44 hydrocodone Allergy Unknown SEVERE Unverified 02/10/23 09:44 ITCHING shrimp AdvReac Mild Other (See Unverified 02/10/23 09:44 Comment) Home Medications Medication Instructions Recorded Confirmed Type acyclovir 400 mg tablet (Zovirax) 1 tab PO DAILY 02/21/13 02/10/23 History cholecalciferol (vitamin D3) 10 400 unit PO DAILY 05/31/14 02/10/23 History mcg (400 unit) capsule (Vitamin D3) glucosamine sulfate 2KCl 1,000 mg 1,000 mg PO DAILY 05/31/14 02/10/23 History tablet lorazepam 1 mg tablet (Ativan) 1 tab PO HS PRN #90 tabs 11/05/16 02/10/23 History acetaminophen 500 mg oral powder 500 mg PO Q6H PRN 01/02/23 02/10/23 History packet (Tylenol Extra Strength) cholecalciferol (vitamin D3) 10 10 mcg PO DAILY 01/02/23 02/10/23 History mcg (400 unit) capsule lidocaine 5 % topical cream 1 applic topical BID PRN 01/02/23 02/10/23 History sildenafil 100 mg tablet 100 mg PO DAILY PRN 01/02/23 02/10/23 History pantoprazole 20 mg tablet,delayed 20 mg PO DAILY 01/08/23 02/10/23 History release Exam Const General: no acute distress, well developed, well groomed and not in acute distress Nutritional Appearance: well nourished Orientation: alert and oriented x3 HENMT Head: normocephalic and atraumatic Ears: external ears normal Mouth: oropharynx normal and moist mucous membranes Throat: posterior oropharynx normal Eyes Conjunctivae: conjunctivae normal Neck Neck: full ROM and supple Chest Chest: normal inspection of the chest Resp Effort & Inspection: normal respiratory effort Auscultation: clear to auscultation bilaterally Cardio Rate: regular rate Rhythm: regular rhythm Heart Sounds: no murmurs and no rubs GI Inspection: normal to inspection Palpation: soft, tender (L side and epigastrium) and other (non distended, has guarding L side, non tympanetic) Auscultation: abnormal bowel sounds (decreased) Skin General skin exam: no rashes or lesions noted and other (pink, warm, dry) Neuro General: patient alert, patient awake and patient oriented x3 Speech: speech normal Motor: other (NEVAREZ) Sensory Exam: no sensory deficits noted Extrem General: normal to inspection, full ROM and pedal edema present Psych Mental Status: mental status grossly normal Speech and Movement: speech and movement normal Affect: normal affect Results Labs 02/10/23 09:04 02/10/23 09:04 Labs: Laboratory Results - last 24 hr 02/10/23 02/10/23 02/10/23 08:50 08:50 09:04 WBC Cancelled RBC Cancelled Hgb Cancelled Hct Cancelled MCV Cancelled MCH Cancelled MCHC Cancelled RDW Cancelled Plt Count Cancelled MPV Cancelled Immature Gran % Cancelled Neutrophils % Cancelled Band Neutrophils % Cancelled Lymphocytes % Cancelled Atypical Lymphs % Cancelled Monocytes % Cancelled Eosinophils % Cancelled Basophils % Cancelled Metamyelocytes % Cancelled Myelocytes % Cancelled Promyelocytes % Cancelled Other Cells % Cancelled Nucleated RBC % Cancelled Absolute Neutrophils Cancelled Absolute Lymphocytes Cancelled Absolute Monocytes Cancelled Absolute Eosinophils Cancelled Absolute Basophils Cancelled RBC Morphology Cancelled Polychromasia Cancelled Hypochromasia Cancelled Poikilocytosis Cancelled Basophilic Stippling Cancelled Anisocytosis Cancelled Microcytosis Cancelled Macrocytosis Cancelled Spherocytes Cancelled Tear Drop Cells Cancelled Ovalocytes Cancelled Stomatocytes Cancelled Graves-[place] Bodies Cancelled [place] Cells/Echinocytes Cancelled Acanthocytes (Spur) Cancelled Schistocytes Cancelled VBG Lactate Sodium Cancelled 140 Potassium Cancelled 4.0 Chloride Cancelled 102 Carbon Dioxide Cancelled 22.3 Anion Gap Cancelled 15.7 H BUN Cancelled 10 Creatinine Cancelled 0.9 Est GFR (CKD-EPI 2020) Cancelled 92.45 Glucose Cancelled 103 Calcium Cancelled 9.2 Magnesium Cancelled 1.7 L Total Bilirubin Cancelled 0.5 AST Cancelled 64 H ALT Cancelled 55 Alkaline Phosphatase Cancelled 63 Troponin I Cancelled < 50 Total Protein Cancelled 8.1 Albumin Cancelled 3.8 Lipase COVID-19 Source 02/10/23 02/10/23 02/10/23 09:04 09:04 09:05 WBC 9.60 RBC 4.26 L Hgb 14.6 Hct 42.3 MCV 99 H MCH 34.3 H MCHC 34.5 RDW 14.6 H Plt Count 194 MPV 10.3 Immature Gran % 0.3 Neutrophils % 83.9 Band Neutrophils % Lymphocytes % 7.5 Atypical Lymphs % Monocytes % 7.6 Eosinophils % 0.1 Basophils % 0.6 Metamyelocytes % Myelocytes % Promyelocytes % Other Cells % Nucleated RBC % 0.0 Absolute Neutrophils 8.05 H Absolute Lymphocytes 0.72 L Absolute Monocytes 0.73 Absolute Eosinophils 0.01 Absolute Basophils 0.06 RBC Morphology Polychromasia Hypochromasia Poikilocytosis Basophilic Stippling Anisocytosis Microcytosis Macrocytosis Spherocytes Tear Drop Cells Ovalocytes Stomatocytes Graves[place] Bodies [place] Cells/Echinocytes Acanthocytes (Spur) Schistocytes VBG Lactate 4.3 H* Sodium Potassium Chloride Carbon Dioxide Anion Gap BUN Creatinine Est GFR (CKD-EPI 2020) Glucose Calcium Magnesium Total Bilirubin AST ALT Alkaline Phosphatase Troponin I Total Protein Albumin Lipase > 375 H COVID-19 Source 02/10/23 02/10/23 10:57 11:30 WBC RBC Hgb Hct MCV MCH MCHC RDW Plt Count MPV Immature Gran % Neutrophils % Band Neutrophils % Lymphocytes % Atypical Lymphs % Monocytes % Eosinophils % Basophils % Metamyelocytes % Myelocytes % Promyelocytes % Other Cells % Nucleated RBC % Absolute Neutrophils Absolute Lymphocytes Absolute Monocytes Absolute Eosinophils Absolute Basophils RBC Morphology Polychromasia Hypochromasia Poikilocytosis Basophilic Stippling Anisocytosis Microcytosis Macrocytosis Spherocytes Tear Drop Cells Ovalocytes Stomatocytes Graves-[place] Bodies Leno Cells/Echinocytes Acanthocytes (Spur) Schistocytes VBG Lactate 1.9 H Sodium Potassium Chloride Carbon Dioxide Anion Gap BUN Creatinine Est GFR (CKD-EPI 2020) Glucose Calcium Magnesium Total Bilirubin AST ALT Alkaline Phosphatase Troponin I Total Protein Albumin Lipase COVID-19 Source Nasal/Nares Last Vital Signs Pulse 66 02/10/23 10:16 Resp 19 02/10/23 10:20 BP 125/70 02/10/23 10:16 Pulse Ox 95 02/10/23 10:20 PAWSS Have you Been Recently Intoxicated or Drunk Within the Last 30 days?: No Have you Ever Experienced Previous Episodes of Alcohol Withdrawal?: No Have you ever Experienced Withdrawal Seizures?: No Have you ever Experienced Delirium Tremens(DT)s?: No Have you ever undergone Alcohol Rehabilitation Treatment (i.e, inpt ot outpatient treatment programs)?: No Have you ever Experienced Blackouts?: No Have you ever Combined Alcohol with other Downers within the last 90 days?: No Have you ever Combined Alcohol with any other Substance of Abuse during the last 90 days?: No Result: 0 Time Spent Time spent with Patient: 55-74 minutes Time was spent: preparing to see the patient(eg.review tests), obtaining and/or reviewing separately otained hiistory, ordering medications,tests, procedures, referring, communicating with other health child care aide, indepentently interpreting results, counseling the patient and care coordination
[2023-02-10 11:46] LABS: COVID-19 PCR Negative (Negative)
[2023-02-10] MEDS: Lactated Ringers 1,000 ML 125 ML IV ×2 (12:18→21:33)
[2023-02-10] MEDS: MAGNESIUM SULFATE 2 GM/50 ML BAG IVPB (13:00)
[2023-02-10] MEDS: Enoxaparin 40 MG/0.4 ML SYR SC (13:01)
[2023-02-10 13:07] LABS: Troponin I < 50 ng/L (<or=60)
[2023-02-10 13:15] LABS: Bilirubin Negative (Negative); Blood Trace-lysed (Negative); Clarity Clear (Clear); Glucose Negative (Negative); Ketones 80 mg/dL (Negative); Leukocyte Esterase Negative (Negative); Nitrite Negative (Negative); Specific Gravity >= 1.030 (1.005-1.025); Urobilinogen 0.2 mg/dL (Up to 0.2); pH 5.5 (5-8)
[2023-02-10 13:24] LABS: Bacteria Negative HPF (Negative); C & S Indicated? No; Casts Negative LPF (Negative); Crystals Negative HPF (Negative); Epithelial Cells Few HPF (Negative); Mucus Moderate (Negative); RBC 0-2 HPF (0-2); WBC 0-2 HPF (0-5)
[2023-02-10 14:19] LABS: *AMPHETAMINES SCREEN URINE Negative (Negative); *BARBITURATES SCREEN URINE Negative (Negative); *BENZODIAZEPINES SCREEN URINE Negative (Negative); Cannabinoids THC Positive (Negative); Cocaine Screen,Urine Negative (Negative); METHADONE URINE SCREEN Negative (Negative); OPIATES URINE SCREEN Positive (Negative)
[2023-02-10 14:21] LABS: Tricyclic Antidepressants Negative (Negative)
[2023-02-10] MEDS: Acetaminophen 325 MG TAB PO (14:23)
[2023-02-10] MEDS: HYDROmorphone 2 MG/ML SYR IVP (14:36)
[2023-02-10] MEDS: Normal Saline Flush 10 ML SYR IVP ×2 (14:39→18:53)
[2023-02-10] MEDS: Pantoprazole 40 MG TABCR PO (17:23)
[2023-02-10] MEDS: HYDROmorphone 2 MG/ML VIAL IVP ×2 (18:52→23:00)
[2023-02-10] MEDS: Acyclovir 400 MG TAB PO (19:38)
[2023-02-11] VITALS: PULSE 77
[2023-02-11 03:31] VITALS: BP 126/81; PULSE 77; RESP 18; TEMP 37.1; O2SAT 92
[2023-02-11] MEDS: Lactated Ringers 1,000 ML 125 ML IV ×2 (05:02→12:34)
[2023-02-11] MEDS: Acetaminophen 325 MG TAB PO ×2 (06:18→11:08)
[2023-02-11 07:13] LABS: Abs Immature Grans 0.06 10^3/uL (0.0-0.06); Absolute Basophil Count 0.05 10^3/uL (0.0-0.2); Absolute Eosinophil Count 0.01 10^3/uL (0.0-0.7); Absolute Lymphocyte Count 0.78 10^3/uL (1.2-3.4); Absolute Monocyte Count 1.32 10^3/uL (0.1-0.8); Absolute Neutrophil Count 7.71 10^3/uL (1.2-6.7); Basophils % 0.5; Eosinophils % 0.1; HCT 35.6 % (40.0-50.0); HGB 12.7 g/dL (13.5-17.5); Immature Grans % 0.6; Lymphocytes % 7.9; MCH 35.5 pg (27.0-33.0); MCHC 35.7 % (32.0-36.0); MCV 99 fL (80-95); MPV 10.5 fL (8.0-11.0); Monocytes % 13.3; Neutrophils % 77.6; Platelet Count 165 10^3/uL (130-400); RBC 3.58 10^6/uL (4.36-5.78); RDW 14.7 % (11.8-14.1); RDW-SD 53.9 fL; WBC 9.93 10^3/uL (4.4-10.8)
[2023-02-11 07:55] VITALS: BP 118/75; PULSE 71; RESP 18; TEMP 37.6; O2SAT 92
[2023-02-11 07:58] LABS: ALT 36 U/L (16-63); AST 37 U/L (15-37); Albumin 2.8 g/dL (3.4-5.0); Alkaline Phosphatase 51 U/L (46-116); Anion Gap 10.3 mmol/L (3-11); BUN 8 mg/dL (7-18); Bilirubin, Total 0.7 mg/dL (0.2-1.0); CO2 24.7 mmol/L (21.0-32.0); CREATININE 0.7 mg/dL (0.70-1.30); Chloride 102 mmol/L (98-107); Estimated GFR 99.74 (mL/min/1.73m2); Glucose 77 mg/dL (74-106); Magnesium 1.9 mg/dL (1.8-2.4); Potassium 3.5 mmol/L (3.5-5.1); Sodium 137 mmol/L (136-145); Total Protein 6.2 g/dL (6.4-8.2)
[2023-02-11 07:59] LABS: Lipase > 375 U/L (16-77)
[2023-02-11] MEDS: Thiamine 100 MG TAB PO (08:29)
[2023-02-11] MEDS: Pantoprazole 20 MG TABCR PO (08:30)
[2023-02-11] MEDS: Acyclovir 400 MG TAB PO (08:31)
[2023-02-11] MEDS: Multivitamin TAB 1 TAB PO (08:32)
[2023-02-11] MEDS: Folic Acid 1 MG TAB PO (08:32)
[2023-02-11] MEDS: Potassium Chloride 20 MEQ TABCR PO (09:49)
[2023-02-11 10:16] VITALS: PULSE 88
[2023-02-11 11:38] VITALS: BP 127/78; PULSE 68; RESP 17; TEMP 37.4; O2SAT 94
[2023-02-11] MEDS: Enoxaparin 40 MG/0.4 ML SYR SC (12:31)
--- NOTE | 2023-02-11 12:46 | DSE_ITS ---
Date of service: 02/11/23 Time of Service: 12:46 DS: Diagnosis Discharge Diagnosis (1) Acute pancreatitis: Status: Acute (2) Abdominal pain: Status: Acute (3) Hypomagnesemia: Status: Acute (4) Acid reflux: Status: Chronic (5) DVT prophylaxis: Status: Acute (6) Discharge planning issues: Status: Acute Discharge Plan Disposition Patient Disposition: Home Condition: Good Discharge Details Reason For Visit: Acute Pancreatitis Admit Date/Time: 02/10/23 10:51 Admit Provider: Alexis Mchugh Attending Provider: Alexis Mchugh Primary Care Provider: Suzie Bal V Hospital Course Hospital Course: This 68-year-old male patient presented to the [facility] ED 02/10/2023 with a chief complaint of left upper quadrant pain radiating to his shoulder blade that began overnight.? Patient stated that it was sharp and constant in nature.? Nothing really made it better or worse.? It did not change by movement or inspiration.? Patient stated he did vomit once overnight.? He had no diarrhea.? Patient denied fever, chills, or URI symptoms.? Patient reported that at baseline he has a slow heart rate.? 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 Of note, the patient drinks 5 or more beers and/or whiskeys per day.? He is a non-smoker. He had an elevated Lipase. He is placed on the medical floor for observation, IV fluids, pain meds and antiemetics, stable. Overnight his pain dissipated and he was able to tolerate full liquids and then solid food.? He does not take Creon and states he was told he does not need to take it any longer, it?s been a few years now, he was not discharged with Creon.? He was told to stop drinking and to follow up with his PCP.? He was discharged to home with his , stable. ? Home Meds and New Rx's Prescriptions: Continued pantoprazole 20 mg tablet,delayed release (DR/EC) 20 mg PO DAILY acyclovir [Zovirax] 400 MG tablet 1 tab PO DAILY glucosamine sulfate 2KCl 1,000 MG tablet 1,000 mg PO DAILY cholecalciferol (vitamin D3) [Vitamin D3] 400 UNIT capsule 400 unit PO DAILY lorazepam [Ativan] 1 MG tablet 1 tab PO HS PRNQty: 90 Rx Instructions: one dose daily lidocaine 5 % cream 1 applic topical BID PRN Tylenol Extra Strength 500 mg powder in packet 500 mg PO Q6H PRN sildenafil 100 mg tablet 100 mg PO DAILY PRN Rx Instructions: administer 30 minutes to 4 hours before activity No Action cholecalciferol (vitamin D3) 10 mcg (400 unit) capsule 10 mcg PO DAILY Discharge Instructions Instructions: Pancreatitis (DC), Low Fiber Diet (DC), Abuse of Alcohol (DC), Alcohol Dependence (DC) Additional Instructions: After an episode of pain from pancreatitis, you should start off with drinking only clear liquids, such as soup broth or gelatin. You will need to follow this diet until your symptoms get better. Slowly add other foods back to your diet when you are better. Talk with your provider about: * Eating a healthy diet that is low in fat, with no more than 30 grams of fat per day * Eating foods that are high in protein and carbohydrates, but low in fat. Eat smaller meals, and eat more often. Your provider will help make sure you are getting enough calories to not lose weight. * Quitting smoking or using other tobacco products, if you use these substances. * Losing weight, if you are overweight. Always talk to your provider before taking any medicines or herbs. Do not drink any alcohol. If your body can no longer absorb fats that you eat, your provider may ask you to take a medicine called pancreatic enzymes. These will help your body absorb fats in your food better. * You will need to take this medicine with every meal and snack. Your provider will tell you how much to take. * When you take these enzymes, you may also need to take another medicine to decrease the acid in your stomach. If your pancreas has a lot of damage, you may also develop diabetes. You will be checked for this problem. Managing Your Pain Avoiding alcohol, tobacco, and foods that make your symptoms worse is the first step to controlling pain. Use acetaminophen (Tylenol) or nonsteroidal anti-inflammatory drugs, such as ibuprofen (Advil, Motrin), at first to try and control your pain. You will get a prescription for pain medicines. Get it filled when you go home so you have it available. If the pain is getting worse, take your pain medicine to help before the pain becomes very bad. When to Call the Doctor Contact your provider if you have: * Very bad pain that is not relieved by [id number] drugs * Problems eating, drinking, or taking your drugs because of nausea or vomiting * Problems breathing or a very fast heartbeat * Pain with fever, chills, frequent vomiting, or with feeling faint, weak, or tired * Weight loss or problems digesting your food * Yellow color to your skin and the whites of your eyes (jaundice) Stop drinking alcohol Stand Alone Forms: Nursing Discharge Form Referrals: Suzie Bal MD [Primary Care Provider] - 02/25/23 8:00 am (your Appointment will be with Tita Pires as your PCP is out of the office ) Activity:: Activity as Tolerated Equipment/Supplies:: No Equipment Needed Diet:: As Tolerated Discharge Orders Discharge Orders: Discharge Order (Routine); Ordered 02/11/23 Ordered By: So Chase Discharge Data Discharge Date/Time-TO BE ENTERED AT DEPARTURE: 02/11/23 13:17 DS: Summary Time Spent with Patient providing and/or coordinating discharge services: Greater than 30 minutes Status at Discharge Functional status at discharge: independent ambulation Overall status at discharge: patient is back to baseline Mental Status: mental status grossly normal Speech and Movement: speech and movement normal Mood: congruent mood Affect: normal affect Exam Const General: no acute distress, well developed, well groomed and not in acute distress Nutritional Appearance: well nourished Orientation: alert and oriented x3 [facility] Head: normocephalic and atraumatic Ears: external ears normal Mouth: oropharynx normal and moist mucous membranes Throat: posterior oropharynx normal Eyes Conjunctivae: conjunctivae normal Neck Neck: full ROM and supple Chest Chest: normal inspection of the chest Resp Effort & Inspection: normal respiratory effort Auscultation: clear to auscultation bilaterally Cardio Rate: regular rate Rhythm: regular rhythm Heart Sounds: no murmurs and no rubs GI Inspection: normal to inspection and non-distended Palpation: soft, not firm, no guarding and nontender Auscultation: normal bowel sounds Skin General skin exam: no rashes or lesions noted and other (pink, warm, dry) Neuro General: patient alert, patient awake and patient oriented x3 Speech: speech normal Motor: other (NEVAREZ) Sensory Exam: no sensory deficits noted Extrem General: normal to inspection, full ROM and pedal edema present Psych Mental Status: mental status grossly normal Speech and Movement: speech and movement normal Mood: congruent mood Affect: normal affect DS: Data Vitals/I&O Vitals and I&O: Vital Signs Temperature 37.4 C 02/11/23 11:38 Temperature Source Tympanic 02/11/23 11:38 Pulse 68 02/11/23 11:38 Pulse Rhythm Regular 02/11/23 08:57 Pulse 85 02/10/23 11:46 Respiratory Rate 17 02/11/23 11:38 Respiratory Effort Normal, Non-Labored 02/11/23 08:57 Respiratory Depth Normal 02/11/23 08:57 Respiratory Pattern Normal 02/11/23 08:57 Blood Pressure 127/78 02/11/23 11:38 Blood Pressure Mean 88 02/10/23 11:46 Pulse Oximetry 94 02/11/23 11:38 Oxygen Delivery Method Room Air 02/11/23 11:38 Oxygen Flow Rate 0 02/11/23 11:38 Pain Level 5 02/11/23 11:38 Comment Burping at time of assessment. 02/10/23 12:23 Intake & Output 02/10/23 02/11/23 02/11/23 23:59 11:59 23:59 Intake Total 956.25 / 3556.25 935.417 / 1877.084 941.667 / 1877.084 Output Total 500 / 500 Balance 456.25 / 3056.25 935.417 / 1877.084 941.667 / 1877.084 Weight 11 kg 85.5 kg Intake: IV 956.25 / 3556.25 935.417 / 1877.084 941.667 / 1877.084 Output: Urine 500 / 500 Other: Urine Color Yellow Urine Appearance Clear Urine Odor Normal Comment Void x1 in the urinal. Voiding Methods Urinal Data Completed and Pending Labs on day of discharge: Labs from last 24 hours 02/11/23 02/11/23 02/11/23 06:14 06:14 06:14 WBC 9.93 RBC 3.58 L Hgb 12.7 L Hct 35.6 L MCV 99 H MCH 35.5 H MCHC 35.7 RDW 14.7 H Plt Count 165 MPV 10.5 Immature Gran % 0.6 Neutrophils % 77.6 Lymphocytes % 7.9 Monocytes % 13.3 Eosinophils % 0.1 Basophils % 0.5 Nucleated RBC % 0.0 Absolute Neutrophils 7.71 H Absolute Lymphocytes 0.78 L Absolute Monocytes 1.32 H Absolute Eosinophils 0.01 Absolute Basophils 0.05 Sodium 137 Potassium 3.5 Chloride 102 Carbon Dioxide 24.7 Anion Gap 10.3 BUN 8 Creatinine 0.7 Est GFR (CKD-EPI 2020) 99.74 Glucose 77 Calcium 8.0 L Magnesium 1.9 Total Bilirubin 0.7 AST 37 ALT 36 Alkaline Phosphatase 51 Troponin I Total Protein 6.2 L Albumin 2.8 L Lipase > 375 H Urine Color Urine Clarity Urine pH Ur Specific [place] Urine Protein Urine Ketones Urine Blood Urine Nitrite Urine Bilirubin Urine Urobilinogen Ur Leukocyte Esterase Urine RBC Urine WBC Ur Epithelial Cells Urine Crystals Urine Bacteria Urine Casts Urine Mucus Ur Culture Indicated? Urine Glucose Urine Opiates Screen Urine Methadone Screen Ur Barbiturates Screen Ur Tricyclics Screen Ur Amphetamines Screen U Benzodiazepines Scrn Urine Cocaine Screen Ur THC Screen 02/10/23 02/10/23 02/10/23 12:35 12:35 11:30 WBC RBC Hgb Hct MCV MCH MCHC RDW Plt Count MPV Immature Gran % Neutrophils % Lymphocytes % Monocytes % Eosinophils % Basophils % Nucleated RBC % Absolute Neutrophils Absolute Lymphocytes Absolute Monocytes Absolute Eosinophils Absolute Basophils Sodium Potassium Chloride Carbon Dioxide Anion Gap BUN Creatinine Est GFR (CKD-EPI 2020) Glucose Calcium Magnesium Total Bilirubin AST ALT Alkaline Phosphatase Troponin I < 50 Total Protein Albumin Lipase Urine Color Yellow Urine Clarity Clear Urine pH 5.5 Ur Specific [place] >= 1.030 H Urine Protein Negative Urine Ketones 80 H Urine Blood Trace-lysed H Urine Nitrite Negative Urine Bilirubin Negative Urine Urobilinogen 0.2 Ur Leukocyte Esterase Negative Urine RBC 0-2 Urine WBC 0-2 Ur Epithelial Cells Few Urine Crystals Negative Urine Bacteria Negative Urine Casts Negative Urine Mucus Moderate Ur Culture Indicated? No Urine Glucose Negative Urine Opiates Screen Positive A Urine Methadone Screen Negative Ur Barbiturates Screen Negative Ur Tricyclics Screen Negative Ur Amphetamines Screen Negative U Benzodiazepines Scrn Negative Urine Cocaine Screen Negative Ur THC Screen Positive A PFSH All Active Problems (Updated 02/10/23 @ 12:05 by So Chase NP) Hypomagnesemia (Acute) Acid reflux (Chronic) Abdominal pain (Acute) Discharge planning issues (Acute) DVT prophylaxis (Acute) Acute pancreatitis (Acute) Thyroid nodule (Acute) Lumbar post-laminectomy syndrome (Acute) Medical History (Updated 02/10/23 @ 12:05 by So Chase NP) Actinic keratosis Adenocarcinoma of duodenum Allergic to IV contrast Anxiety disorder Arthritis Barretts esophagus Basal cell carcinoma Benign prostatic hyperplasia Bilateral cataracts Cancer Cervicalgia Decreased hearing of left ear Depressive disorder Dermatitis Difficulty sleeping Diverticulosis Encounter for medication monitoring Epididymal mass Former smoker Granuloma annulare 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 Hearing loss in left ear Herpes simplex ophthalmicus History of adenomatous polyp of colon Insomnia Knee pain Lipid disorder Low back pain Lumbar facet arthropathy Lumbar radiculopathy Lumbar stenosis Lumbosacral radiculopathy Lumbosacral spinal stenosis Melanoma Muscle spasms of neck Nodule of right lobe of thyroid gland Pars defect Peripheral neuropathy Polyneuropathy Right leg pain Sciatica Shoulder lesion, unspecified, right shoulder Shoulder pain, bilateral Skin disease Sleep disturbance Spinal stenosis Spondylolisthesis Squamous cell carcinoma in situ of skin Stomach ulcer Varicose veins of both lower extremities Ventral incisional hernia without obstruction or gangrene Surgical History (Updated 01/02/23 @ 13:04 by Bridgette Tracy) Appendectomy (11/29/99) [facility] H/O hernia repair H/O Whipple procedure History of lumbar spinal fusion Open Carpal Tunnel release (~08/2008) B/L Repair of inguinal hernia (06/05/00) left S/P lumbar fusion Family History Mother , cerebral aneurysm No problems noted. Father , bladder CA No problems noted. Brother Parkinsons disease Social History Smoking/Tobacco Use Status: Former Tobacco Use Smoking risk assessment performed?: Yes Alcohol Intake: current Drug use: Never Substance use type: does not use Do you feel safe at home: Yes Do you feel safe in your relationship?: Yes Time Spent with Patient Time Spent with Patient: 45-69 minutes Time was spent: preparing to see the patient(eg.review tests), ordering medications,tests, procedures, referring, communicating with other health geriatric care manager, indepentently interpreting results, counseling the patient and care coordination
== END 2023-02-11 13:17 | disposition home or self-care (01) | DRG 440 ==
LOC: ER 10:56 → MS 12:12
PROVIDERS: Nurse Practitioner Family; Admitting Provider Internal Medicine; Emergency Provider Emergency Medicine; PCP Family Medicine; Visit Provider Internal Medicine
DX: K85.90 Acute pancreatitis without necrosis or infection, unspecified (principal); K21.9 Gastro-esophageal reflux disease without esophagitis; E83.42 Hypomagnesemia; R00.1 Bradycardia, unspecified; K76.0 Fatty (change of) liver, not elsewhere classified; Z85.068 Personal history of other malignant neoplasm of small intestine; E04.1 Nontoxic single thyroid nodule; M96.1 Postlaminectomy syndrome, not elsewhere classified; N40.0 Benign prostatic hyperplasia without lower urinary tract symptoms; K22.70 Barrett's esophagus without dysplasia; F41.9 Anxiety disorder, unspecified; Z87.891 Personal history of nicotine dependence; G47.00 Insomnia, unspecified; E78.9 Disorder of lipoprotein metabolism, unspecified; G62.9 Polyneuropathy, unspecified; I83.93 Asymptomatic varicose veins of bilateral lower extremities
CPT/HCPCS: 36415; 80053; 80307; 83690; 87635; 93005; 96374; 96375; 96376; 99285; J1650; 71045; 74176; 81003; 81015; 83605; 83735; 84484; 85025; 93010; 99222; 99239; J0131; J1170; J2405

== ENCOUNTER 2023-02-24 01:36 | Outpatient (CLI) | payer MEDICARE, SELFPAY ==
--- NOTE | 2023-02-24 07:30 | DI.US_ITS ---
Exam(s) US NEEDLE LOCAL OTHER WO RAD EXAM: US NEEDLE LOCAL OTHER WO RAD CLINICAL HISTORY: right tr 4 lesion,ultrasound guided bx,e04.1. COMPARISON: US US THYROID from 12/18/2022 TECHNIQUE: Ultrasound guidance was provided during ultrasound-guided FNA solid nodule in the right t hyroid lobe. FINDINGS: Solitary images well is seen a acquisitions were obtained of the needle entering the nodule of concer n. Anterior sample acquisition. IMPRESSION: Successful Ultrasound-guided Localization. DATA REPOSITORY:
--- NOTE | 2023-02-24 12:30 | PAPNONF_PTH ---
PATIENT: Johan Del Valle LOC: [facility] U#:[id number] AGE/SX: 68/M ROOM: RE02/24/[address]: Scott Stringer MD : [id number] BED: DIS: 02/24/2023 SPEC #: [id number] RECD: 02/24/23 12:56 STATUS: KARL REAshkan #: [id number] LUZ ELENA: 02/24/23 12:[address]: Scott Stringer DEPT: [facility] Cytology RECD BY: Priscilla Berumen ENTERED: 02/24/23 12:56 SP TYPE: DAVID COOK DR: Suzie Bal V Tissues: 1 - BODY FLUID CYTO-FINE NEEDLE ASPIRATE-[facility] Procedures: BODY FLUID CYTO-FINE NEEDLE ASPIRATE-[facility] Comments: [id number] (PATH FNA CONSULT) (REFRIGERATED)
--- NOTE | 2023-02-24 13:03 | W.PROCNOTE ---
Date of service: 02/24/23 Time of Service: 13:03 Procedure Note Date of procedure: 02/24/23 Procedure: Ultrasound-guided FNA, right thyroid nodule, pathology present Procedure Diagnosis: Right-sided thyroid nodule meeting criteria for biopsy Procedure Indications: The patient has a right-sided thyroid nodule meeting criteria for biopsy. Options were explained to the patient regarding further management. He elected undergo the above procedure. Consent was filled out and signed prior to surgery. H&P was reviewed. There have been no changes. Procedure Description: The patient was positioned in supine position and prepped and draped in appropriate fashion. His neck was slightly extended. Ultrasound was used to localize the right-sided thyroid nodule, and then 1% lidocaine with 1/100,000 epinephrine was injected into the skin and subcutaneous tissues overlying the nodule. A 25-gauge needle was then passed into the thyroid nodule, and biopsy handed to pathology who verified cellular adequacy. Second pass was made for additional material. There is significant amounts of colloid on the slide. 2 additional passes were made for potential Afirma testing. All of this was done under ultrasound guidance. Patient tolerated procedure well. His vital signs remained stable. After ensuring adequate hemostasis a sterile dressing was applied to the site. He was able to ambulate afterwards without difficulty. His vital signs remained stable.
== END 2023-02-24 01:56 ==
LOC: DI 01:36
PROVIDERS: PCP Family Medicine; Visit Provider Otolaryngology
DX: E04.1 Nontoxic single thyroid nodule (principal)
CPT/HCPCS: 10005; 76942; 88104

== ENCOUNTER → 2023-03-05 12:44 | Outpatient (BNVA) | payer MEDICARE, SELFPAY | PROVIDERS: PCP Family Medicine; Referring Provider Family Medicine; Visit Provider Surgery | DX: K22.70 Barrett's esophagus without dysplasia (principal); K21.9 Gastro-esophageal reflux disease without esophagitis; D50.9 Iron deficiency anemia, unspecified; Z86.010 Personal history of colon polyps; K25.9 Gastric ulcer, unspecified as acute or chronic, without hemorrhage or perforation | CPT/HCPCS: 99215; 99243 ==

== ENCOUNTER 2023-03-20 09:11 | Day surgery (SDC) | payer MEDICARE, SELFPAY ==
--- NOTE | 2023-03-19 21:46 | COLE_ITS ---
Date of service: 03/20/23 Time of Service: 12:00 Colonoscopy Report Date of procedure: 03/20/23 Pre-op diagnosis general: Villous and serrated adenomatous polyps Post-op diagnosis procedure note: other (Simpson diverticulitis and multiple polyps- serrated adenomas) Surgeon: Yolis Acosta Anesthesia Type: General:No Airway Estimated blood loss (mL): 1 Pathology: other Complications: None Disposition: same day Prep: Miralax/Dulcolax Retraction Time: 44 Procedure Description: After informed consent was obtained the patient was taken to the procedure room and placed in a left decubitous position. Monitors were applied and a time out was done. The patients name, date of , procedure, allergies to medications and metal in their body was reviewed. The patient was then sedated. Once sedated and comfortable a rectal exam was done. External exam was normal. Internal exam revealed a normal sphincter tone and no palpable masses. The scope was then introduced and retrofelexed. Grade I internal hemorrhoids x1 column were identified. The scope was then advanced to the cecum without difficulty. The TI and appendiceal orifice were identified. The prep was BBPS 3 in all segments for total of 9. The scope was then slowly retracted over 44 minutes back into the rectum. He has multiple small mouthed diverticula that carry all the way over to the cecum. There were no signs of active bleeding or infection. He has a flat .5 cm colon polyp at 90 cm that is removed with a cold biopsy forcep. He has a flat 1cm polyp at 80 cm that is removed with cold snare. 2 clips were placed across the defect. He has x2 polyps at 50 cm. 1 is .5 cm flat polyp that is removed with a cold biopsy forcep. The other is a 1 cm flat polyp that is removed with a cold snare. A Clip was placed across the defect. He has x5 polyps at 40 cm. 2 of them are flat 1 cm polyps. These are both removed with a cold snare. x2 Clips were placed; acrossed each defects. the other 2 polyps are .5 cm in size and are removed with a cold biting forcep. at 20 cm he is 0.75 cm pedunculated polyp that is removed with a cold snare. All specimens are retrieved and no bleeding is noted. And the patient was woken up and taken back to Same day surgery in stable condition. The patient tolerated the procedure well and there were no immediate complications. -Because of the size and number of polyps that are removed today, he will be placed on postprocedural antibiotics to prevent post polypectomy syndrome Follow up: The patient should follow up in 3 years unless they develop changes in bowel habits or other new gastrointestinal complaints.
--- NOTE | 2023-03-19 21:47 | ENDO_ITS ---
Date of service: 03/20/23 Time of Service: 12:39 Endoscopy Report PRE-OP DIAGNOSIS: duodenal adenocarcinoma /s/p whipple/GERD/Barretts SURGEON: Yolis Acosta ANESTHESIA TYPE: General:No Airway COMPLICATIONS: None DISPOSITION: same day PREP: Miralax/Dulcolax PROCEDURE DESCRIPTION: After informed consent was obtained the patient was take to the procedure room and placed in a supine position. Monitors were applied and a time out was done. The patients name, date of , procedure type, allergies to medications and metal in their body was reviewed. A bite block was placed and the patient was sedated. Once sedated and comfortable the gastroscope was advanced through the oropharynx which was grossly normal into the esophagus. The proximal and mid- esophagus were normal. There is bile noted to be refluxing into the mid esophagus. In the distal esophagus there was no: varices/stricture. He does have 2-3cm segment of Dotson's. he has x2 tongues of Dotson's- x1 is 2cm long, and another that is 1cm. There x3 discrete islands of Dotson's. There does not appear to be any active esophagitis associated with this. Biopsies were done at the GE junction and in the distal esophagus. There is significant amount bile noted in the stomach, secondary to his previous surgery. . He does have a Billroth I style gastrojejunal anastomosis. The scope was passed down the jejunal limb. The mucosa appears pink and healthy with a normal villous pattern. Biopsies taken. The anastomosis is widely patent. There is no ulceration. Biopsies are taken of the anastomosis. Biopsies taken of the greater curvature. The scope was retroflexed. The cardia and fundus were noted to be normal. There is no hiatal hernia noted. The GE junction is at 40 cm and the distal esophagus is at 42 cm. The Z line was irregular. The scope was removed and proceeded with the colonoscopy
--- NOTE | 2023-03-19 21:50 | PDOC.DSDIS_ITS ---
Date of service: 03/20/23 Time of Service: 12:14 Discharge Plan Disposition Patient Disposition: Home Condition: Improving Discharge Details Reason For Visit: stomach and colon scope Attending Provider: Yolis Acosta Primary Care Provider: Suzie Bal V Home Meds and New Rx's Prescriptions: New ciprofloxacin HCl [Cipro] 500 mg tablet 500 mg PO BID 3 Days Qty: 6 0RF metronidazole 500 mg tablet 500 mg PO Q8H 3 Days Qty: 9 0RF Rx Instructions: do not drink alcohol while taking this medication sucralfate [Carafate] 1 gram tablet 1 g PO QHS Qty: 30 12RF Continued pantoprazole 20 mg tablet,delayed release (DR/EC) 20 mg PO DAILY acyclovir [Zovirax] 400 MG tablet 1 tab PO DAILY glucosamine sulfate 2KCl 1,000 MG tablet 1,000 mg PO DAILY lorazepam [Ativan] 1 MG tablet 1 tab PO HS PRNQty: 90 Rx Instructions: one dose daily lidocaine 5 % cream 1 applic topical BID PRN Tylenol Extra Strength 500 mg powder in packet 500 mg PO Q6H PRN sildenafil 100 mg tablet 100 mg PO DAILY PRN Rx Instructions: administer 30 minutes to 4 hours before activity Held cholecalciferol (vitamin D3) 10 mcg (400 unit) capsule 10 mcg PO DAILY Hold Instructions: Resume on 03/30/23. Discontinued polyethylene glycol 3350 17 gram/dose powder 238 g PO ONCE Qty: 238 0RF Rx Instructions: take per colonoscopy instructions bisacodyl [Dulcolax (bisacodyl)] 5 mg tablet,delayed release (DR/EC) 5 mg PO ONCE Qty: 4 0RF Rx Instructions: take per colonoscopy instructions Discharge Instructions Additional Instructions: [facility] Colonoscopy Post- Op Instructions Instructions for Everyone who is given Anesthesia: For your safety, please do the following for the next twenty-four (24) hours: *Do Not operate a motor vehicle (car, truck, motorcycle, etc.) *Do Not drink alcoholic beverages or use any recreational drugs for the first 24 hours or while taking pain medications. The medications in your body may have a reaction that can be dangerous. *Do Not make any important decisions or sign any important papers. Findings: Bile reflux esophagitis/Dotson's diverticula multiple polyps Follow up: Repeat Colonoscopy in 3 yrs time antibiotics for 3 days -No Aspirin, ibuprofen or Naprosyn or any NSAID's, Fish oil/Vitamin E /Vit D for two weeks. Tylenol is OK. -No alcohol until Thursday. 1. No lifting over 20 pounds or strenuous activity for the first 72 hours after your procedure. On Thursday, there are no restrictions on your activity. 2. After you arrive home you may have a light meal and return to your normal diet as you can tolerate it without feeling sick to your stomach. 3. You may have a bloated, gaseous feeling in your belly (abdomen) after a colonoscopy. Passing gas and belching will help. Walking or lying down on your left side with your knees flexed may relieve the discomfort. Call the office at [phone] (Office) or [phone] (Hospital) right away if you notice any of the following: a.Vomiting of blood or ?coffee ground stools?. b.Rectal bleeding 1Tbsp, blood clots or continuous bleeding. c.Severe belly (abdominal) pain. d.A hard distended belly (abdomen) and an inability to pass gas. 4. Please don?t expect to have a normal BM (bowel movement) for 2-3 days after your procedure. You WILL pass blood w/ your first BM. If bleeding is continuous, or passing large clots, please go to the ER. 5. If there are questions regarding the findings of your procedure, please contact your doctor 6. If you are unable to contact your doctor with a problem, contact the hospital at [phone]. 7. Continue all your regular medications unless directed otherwise. I understand the above instructions and have no questions. Signature of Patient or Adult Escort Name of Responsible Adult Escort Signature of Nurse Date/Time Activity:: see above Diet:: see above Discharge Orders Discharge Orders: Discharge Order (Routine); Ordered 03/20/23 Ordered By: Yolis Acosta DS: Diagnosis Discharge Diagnosis (1) History of ETOH abuse: Status: Acute (2) Microcytic anemia: Status: Acute (3) Liver nodule: Status: Acute (4) Hypomagnesemia: Status: Acute (5) Acid reflux: Status: Chronic (6) Abdominal pain: Status: Acute Asessment and Plan: The patient is seen and examined after their colonoscopy.? The patient has been able to pass gas.? They are not having abdominal pain.? They have been able to tolerate liquids and a snack.? They do not have any nausea or vomiting.? They are not having any chest pain or shortness of breath.??? They are not having any rectal bleeding. Their vital signs have been stable-see nursing notes. We discussed findings during their colonoscopy, and any biopsies that were done/polyps that were removed. The patient will be sent a letter with any biopsy results, and when to repeat the colonoscopy.-see discharge instructions. Patient was given explicit instructions to follow-up regarding colonoscopy-refer to discharge instructions.? We reviewed resumption of medications. Patient verbalized understanding and discharged in stable and satisfactory condition- See nursing notes. 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
[2023-03-20] MEDS: Lactated Ringers 1,000 ML 80 ML IV (09:42)
[2023-03-20 09:47] VITALS: BP 102/80; PULSE 80; RESP 17; TEMP 36.6; O2SAT 96
--- NOTE | 2023-03-20 09:54 | ANES.PREOP_ITS ---
General Info Date of Service Date Performed: 03/20/23 Height: 5 ft 11 in Weight: 82.7 kg Body Mass Index (BMI): 25.4 Surgical Procedure: Operation Date: 03/20/23 10:05 Proposed Procedure Side Surgeon p Colonoscopy/Gastroscopy Yolis Acosta, Meds Allergies and Home Medications Allergies Allergy/AdvReac Type Severity Reaction Status Date / Time azithromycin [From Zithromax] Allergy Severe Verified 03/20/23 09:45 diclofenac [From Voltaren] Allergy Severe rash Verified 03/20/23 09:45 iodine Allergy Severe Itching Verified 03/20/23 09:45 iohexol Allergy Intermediate Itching Verified 03/20/23 09:45 hydrocodone Allergy Unknown SEVERE Verified 03/20/23 09:45 ITCHING Iodinated Contrast Media Allergy Unknown itching, Verified 03/20/23 09:45 rash shrimp AdvReac Mild Other (See Verified 03/20/23 09:45 Comment) Home Medication Medication Instructions Recorded acyclovir 400 mg tablet (Zovirax) 1 tab PO DAILY 02/21/13 glucosamine sulfate 2KCl 1,000 mg 1,000 mg PO DAILY 05/31/14 tablet lorazepam 1 mg tablet (Ativan) 1 tab PO HS PRN #90 tabs 11/05/16 acetaminophen 500 mg oral powder 500 mg PO Q6H PRN 01/02/23 packet (Tylenol Extra Strength) cholecalciferol (vitamin D3) 10 10 mcg PO DAILY 01/02/23 mcg (400 unit) capsule lidocaine 5 % topical cream 1 applic topical BID PRN 01/02/23 sildenafil 100 mg tablet 100 mg PO DAILY PRN 01/02/23 pantoprazole 20 mg tablet,delayed 20 mg PO DAILY 01/08/23 release Current Visit Medications: Current Medications Generic Name Dose Route Start Last Admin Trade Name Freq PRN Reason Stop Dose Admin Hyoscyamine Sulfate 0.125 mg 03/20/23 09:57 Hyoscyamine 0.125 Mg Sl/Oral/Chew SL 04/19/23 09:56 DIRECTED PRN Ringer's Solution 1,000 mls @ 80 mls/hr 03/20/23 06:00 03/20/23 09:42 IV 03/20/23 23:59 80 mls/hr INFUSION NAMRATA Administration IV Miscellaneous Supplies 1 each 03/20/23 06:00 Iv Access IV 03/20/23 23:59 DIRECTED NAMRATA Ondansetron HCl 4 mg 03/20/23 09:57 Ondansetron 4 Mg/2 Ml Vial IVP 04/19/23 09:56 Q4H PRN PRN Nausea / Vomiting Sodium Chloride 0 ml 03/20/23 06:00 Normal Saline Flush 10 Ml Syr IV 03/20/23 23:59 PRN PRN Sodium Chloride 0 ml 03/20/23 06:00 Normal Saline 10 Ml Vial IJ 03/20/23 23:59 DIRECTED PRN Sterile Water 0 ml 03/20/23 06:00 Water,Injection,Sterile 10 Ml Vial IJ 03/20/23 23:59 DIRECTED PRN PFSH Active Problems Active Problems: Problem Status Onset Code History of ETOH abuse F10.11 Microcytic anemia D50.9 Liver nodule K76.89 Hypomagnesemia E83.42 Acid reflux K21.9 Abdominal pain R10.9 Acute pancreatitis K85.90 Thyroid nodule E04.1 Lumbar post-laminectomy syndrome M96.1 Medical History Medical History Actinic keratosis Adenocarcinoma of duodenum Alcohol intake above recommended sensible limits with complication Allergic to IV contrast Anxiety disorder Arthritis Barretts esophagus Basal cell carcinoma Benign prostatic hyperplasia Bilateral cataracts Cancer Cervicalgia Decreased hearing of left ear Depressive disorder Dermatitis Difficulty sleeping Diverticulosis Encounter for medication monitoring Epididymal mass Former smoker Granuloma annulare 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 Hearing loss in left ear Herpes simplex ophthalmicus History of adenomatous polyp of colon Insomnia Knee pain Lipid disorder Low back pain Lumbar facet arthropathy Lumbar radiculopathy Lumbar stenosis Lumbosacral radiculopathy Lumbosacral spinal stenosis Melanoma Muscle spasms of neck Nodule of right lobe of thyroid gland Pars defect Peripheral neuropathy Polyneuropathy Right leg pain Sciatica Shoulder lesion, unspecified, right shoulder Shoulder pain, bilateral Skin disease Sleep disturbance Spinal stenosis Spondylolisthesis Squamous cell carcinoma in situ of skin Stomach ulcer Varicose veins of both lower extremities Ventral incisional hernia without obstruction or gangrene Surgical History Surgical History Appendectomy (11/29/99) [facility] H/O hernia repair H/O Whipple procedure History of lumbar spinal fusion Open Carpal Tunnel release (~08/2008) B/L Repair of inguinal hernia (06/05/00) left S/P lumbar fusion Tobacco Smoking/Tobacco Use Status: Former Tobacco Use Alcohol Alcohol Intake: former Substance Use Substance use: Never Substance use type: does not use Vital Signs and Lab Results Vital Signs Most Recent Vital Signs in EMR: Most Recent Vital Signs Temp Pulse Resp BP Pulse Ox 36.6 C 80 17 102/80 96 03/20/23 09:47 03/20/23 09:47 03/20/23 09:47 03/20/23 09:47 03/20/23 09:47 Lab Results Blood Type / Crossmatch: No Data to Display Complete Blood Count: No Data to Display Complete Metabolic Panel: No Data to Display Liver Function Panel: No Data to Display Coagulation Panel: No Data to Display Cardiac Panel: No Data to Display Arterial Blood Gas: No Data to Display Venous Blood Gas: No Data to Display Pancreas Panel: No Data to Display Thyroid Panel: No Data to Display Infectious Disease: No Data to Display Blood Cultures: No Data to Display Toxicology Panel: No Data to Display Imaging and Studies Imaging and Studies Study information below may be from another EMR and interpreted by another provider. Please see original notes in EMR for more complete details. EKG Summary: PATIENT NAME: Johan Del Valle #: [id number] ORDERING PROVIDER: Lola Girard M.D. PRIMARY CARE PROVIDER: KYLE PATTERSON MD DATE/TIME OF SERVICE: 02/10/2331 : 4PERFORMING LOCATION: ER APPROVED REPORT Exam: Resting ECG Reason for Exam: left sided chest pain Patient Location: E HR:45 bpm ECG Measurements Heart Rate 45 AXIS SD [id number] P [id number] QRSd 98 QRS -26 QT 523 T59 QTc 451 Conclusion Atrial fibrillation...? atrial activity Some intermittent P waves and irregulqarity Anesthesia Assessment and Plan Anesthesia History Personal History: No History of Anesthesia Complications Family History: No Family History of Anesthesia Complications Exercise Tolerance Exercise Tolerance: Metabolic Equivalents>4 Pertinent Negatives Pertinent Negatives: No Symptoms of GERD, No Major Cardiovascular Symptoms or Complaints, No Major Pulmonary Symptoms or Complaints and No History of CVA/TIA Cardiac & Pulmonary Exam Cardiac Exam: Normal S1/S2 Heart Sounds Pulmonary Exam: Clear Bilateral Breath Sounds Implantable Cardiac Device Does patient have a Pacemaker or an ICD?: No Airway Exam Known Difficult Airway: No Mallampati Class: 2 Mouth Opening: Normal (> 3cm) Thyromental Distance: Greater than 3 cm Neck Range of Motion: Full ROM Neck Circumference: Normal Teeth Condition: Normal Dentition ASA Classification ASA Score: ASA 2 Emergency Case?: No NPO Status NPO Status: NPO Clears >2 hours, Solids >8 hours Anesthesia Plan Resuscitation Status: Full Code Anesthesia Technique: General Anesthesia Airway Planned: Natural Airway Monitors Used: Standard Monitors
[2023-03-20 10:20] VITALS: BMI 25.4
--- NOTE | 2023-03-20 10:49 | BOWEL_PTH ---
PATIENT: Johan Del Valle LOC: [facility] U#:[id number] AGE/SX: 68/M ROOM: RE03/20/[address]: Yolis Acosta : 1955 BED: DIS: 03/20/2023 SPEC #: [id number] RECD: 03/20/23 12:52 STATUS: KARL LIND #: [id number] LUZ ELENA: 03/20/23 10:[address]: Yolis Acosta DEPT: Surgical Specimen RECD BY: Priscilla Berumen ENTERED: 03/20/23 12:54 SP TYPE: Bowel OTHR DR: Suzie Bal V Tissues: 1 - BIOPSY BOWEL 2 - BIOPSY BOWEL 3 - STOMACH BIOPSY 4 - STOMACH BIOPSY 5 - ESOPHAGUS BIOPSY 6 - ESOPHAGUS BIOPSY 7 - BIOPSY BOWEL 8 - BIOPSY BOWEL 9 - BIOPSY BOWEL 10 - BIOPSY BOWEL 11 - BIOPSY BOWEL Procedures: GROSS AND MICRO LEVEL 4 Comments: [id number]
[2023-03-20 12:06] VITALS: BP 113/82; PULSE 68; RESP 16; TEMP 36.5; O2SAT 95
--- NOTE | 2023-03-20 12:10 | W.ANESPOSTOP ---
Postoperative Evaluation Date, Time and Location Date Performed: 03/20/23 Time Performed: 12:11 Patient Location: Day Surgery Unit Vital Signs Most Recent Imported Vital Signs: Most Recent Vital Signs Temp Pulse Resp BP Pulse Ox 36.5 C 68 16 113/82 95 03/20/23 12:06 03/20/23 12:06 03/20/23 12:06 03/20/23 12:06 03/20/23 12:06 Pain Score Most Recent Pain Score: Most Recent Pain Score Pain Level 0 03/20/23 12:06 Assessment Mental Status: Awake (Alert & Oriented to Patient Baseline) Airway and Respiratory Function: Patent airway with normal (patient baseline) respiratory exam Cardiovascular Function: Hemodynamically Stable Hydration Status: Adequately Hydrated Nausea & Vomiting: No Nausea or Vomiting Pain: Pt. Denies Any Pain Peripheral Nerve Block: Patient did not receive a nerve block
[2023-03-20] MEDS: metroNIDAZOLE 500 MG/100 ML BAG 100 MG IVPB (12:21)
[2023-03-20 12:40] VITALS: BP 119/82; PULSE 50; RESP 100; TEMP 36.3; O2SAT 100
[2023-03-20] MEDS: CIPROFLOXACIN 400 MG/200 ML BAG 200 MG IVPB (13:17)
--- NOTE | 2023-03-20 13:41 | SUR.PHASEII ---
States he feels itchy from neck up through head. No rash noted. Ciprofloxacin stopped. VS stable. Afebrile.
[2023-03-20 13:43] VITALS: BP 122/83; PULSE 54; RESP 16; TEMP 36.5; O2SAT 97
== END 2023-03-20 14:40 | disposition home or self-care (01) ==
PROVIDERS: PCP Family Medicine; Visit Provider Surgery
PROC: (CPT 45385; principal; 2023-03-20 10:00)
DX: Z48.3 Aftercare following surgery for neoplasm (principal); K22.70 Barrett's esophagus without dysplasia; C17.0 Malignant neoplasm of duodenum; Z98.0 Intestinal bypass and anastomosis status; K57.30 Diverticulosis of large intestine without perforation or abscess without bleeding; D12.3 Benign neoplasm of transverse colon; Z86.010 Personal history of colon polyps; Z87.891 Personal history of nicotine dependence; F10.10 Alcohol abuse, uncomplicated; K64.0 First degree hemorrhoids; D50.9 Iron deficiency anemia, unspecified; K22.89 Other specified disease of esophagus; D12.4 Benign neoplasm of descending colon; D12.5 Benign neoplasm of sigmoid colon
CPT/HCPCS: 45385; 45380; 43239; 88305; 96365; J0744; J2001

== ENCOUNTER 2024-01-17 13:05 | Emergency (ER) | payer MEDICARE, SELFPAY ==
--- NOTE | 2024-01-17 13:00 | DI.RAD_ITS ---
Exam(s) XR WRIST LT COMP NAVICULAR EXAM: XR WRIST LT COMP NAVICULAR CLINICAL HISTORY: L wrist pain. TECHNIQUE: 2D digital imaging was performed. Three views. COMPARISON: No exams were available for comparison FINDINGS: BONES: No acute fracture is present. No bony destructive lesion is seen. JOINTS: The carpal bones are normally aligned. Mild degenerative changes. SOFT TISSUE: Normal. IMPRESSION: No acute abnormality. DATA REPOSITORY: RADIATION DOSE DELIVERED:
[2024-01-17 13:10] VITALS: BP 142/82; PULSE 60; RESP 18; O2SAT 96
--- NOTE | 2024-01-17 13:57 | W.ED.GENAD ---
Discharge Plan Disposition Patient Disposition: Home Condition: Stable Discharge Details Clinical Impression: Sprain of left wrist Primary Care Provider: Suzie Bal V ED Provider: Trav Song Home Meds and New Rx's Prescriptions: No Action acyclovir [Zovirax] 400 MG tablet 1 tab PO DAILY glucosamine sulfate 2KCl 1,000 MG tablet 1,000 mg PO DAILY lorazepam [Ativan] 1 MG tablet 1 tab PO HS PRNQty: 90 Rx Instructions: one dose daily cholecalciferol (vitamin D3) 10 mcg (400 unit) capsule 10 mcg PO DAILY Hold Instructions: Resume on 03/30/23. lidocaine 5 % cream 1 applic topical BID PRN Tylenol Extra Strength 500 mg powder in packet 500 mg PO Q6H PRN sildenafil 100 mg tablet 100 mg PO DAILY PRN Rx Instructions: administer 30 minutes to 4 hours before activity sucralfate [Carafate] 1 gram tablet 1 g PO QHS Qty: 30 12RF pantoprazole 20 mg tablet,delayed release (DR/EC) 40 mg PO DAILY Qty: 30 12RF Discharge Instructions Instructions: Wrist Sprain (ED) Additional Instructions: You were seen in the emergency department for the sprain of your left wrist. We have provided you with a removable wrist brace, please rest, ice, compress and elevate the wrist for the next few days. Please use therapeutic dosing of Tylenol (acetamenophen) & Advil (ibuprofen) in an alternating fashion as follows: Take 1000mg of Tylenol every 6 hours without missing doses- that is 4 times per day. Chcf in between the Tylenol dosings, take 400-600mg of Advil also on a 6 hour schedule, that is also 4 times per day. The daily maximum dosing of Tylenol is 4000mg, and the daily maximum dosing of Advil is 2400mg. This is safe to do for weeks. Please note that some common cold medications & prescription pain medications may contain acetamenophen and you need to read OTC drug labels and factor that in to maximum daily dosings. Follow-up with orthopedics for persistent pain past 2 weeks. Return to the emergency department for any signs of neurovascular compromise like complete numbness to the hand, coolness to touch, inability to move the arm. Referrals: Suzie Bal MD [Primary Care Provider] - Discharge Data Discharge Date/Time-TO BE ENTERED AT DEPARTURE: 01/17/24 14:12 HPI General Date/Time Provider Initiated Documentation: 01/17/24 13:13. HPI Narrative: 68 year-old male presents to ED today by POV/ambulating with a chief complaint of L wrist pain, L-hand dominant with onset this morning. Quality described as soreness and sharp pain, he fell getting out of his truck this morning, bracing himself with his L arm, no radiation to numbness/tingling, deformity, skin changes, swelling, proximal arm pain, headstrike, LOC. Severity is described as moderate. Palliating factors include nothing specific attempted. Provoking factors include nothing specific. Patient not anticoagulated. Related Data Home Medications Medication Instructions Recorded Confirmed acyclovir 400 mg tablet (Zovirax) 1 tab PO DAILY 02/21/13 01/17/24 glucosamine sulfate 2KCl 1,000 mg 1,000 mg PO DAILY 05/31/14 01/17/24 tablet lorazepam 1 mg tablet (Ativan) 1 tab PO HS PRN #90 tabs 11/05/16 01/17/24 acetaminophen 500 mg oral powder 500 mg PO Q6H PRN 01/02/23 01/17/24 packet (Tylenol Extra Strength) cholecalciferol (vitamin D3) 10 10 mcg PO DAILY 01/02/23 01/17/24 mcg (400 unit) capsule lidocaine 5 % topical cream 1 applic topical BID PRN 01/02/23 01/17/24 sildenafil 100 mg tablet 100 mg PO DAILY PRN 01/02/23 01/17/24 pantoprazole 20 mg tablet,delayed 40 mg (2 x 20 mg) PO DAILY #30 tabs 03/20/23 01/17/24 release sucralfate 1 gram tablet (Carafate) 1 g PO QHS #30 tabs 03/20/23 01/17/24 Previous Rx's Medication Instructions Recorded pantoprazole 20 mg tablet,delayed 40 mg (2 x 20 mg) PO DAILY #30 tabs 03/20/23 release sucralfate 1 gram tablet (Carafate) 1 g PO QHS #30 tabs 03/20/23 Allergies Allergy/AdvReac Type Severity Reaction Status Date / Time azithromycin [From Zithromax] Allergy Severe Itching Verified 01/17/24 13:12 diclofenac [From Voltaren] Allergy Severe rash Verified 01/17/24 13:12 iodine Allergy Severe Itching Verified 01/17/24 13:12 iohexol Allergy Intermediate Itching Verified 01/17/24 13:12 hydrocodone Allergy Unknown SEVERE Verified 01/17/24 13:12 ITCHING Iodinated Contrast Media Allergy Unknown itching, Verified 01/17/24 13:12 rash shrimp AdvReac Mild Other (See Verified 01/17/24 13:12 Comment) General Stated Complaint: Orthopedic BLAISE: 4 Review of Systems All systems reviewed & are unremarkable except as noted in HPI and below Exam Narrative Exam Narrative: GENERAL APPEARANCE: Well-nourished, non-toxic, awake and alert, atraumatic, no acute distress. SKIN: Warm, pink, dry, intact, without rashes/lesions/ulcerations. HEAD: Normocephalic, atraumatic, normal hair distribution for gender/age. EYES: Pupils PERRLA, EOMs intact without nystagmus, normal conjunctiva, no exudates on lids/lashes. ENT: Nares patent, no circumoral cyanosis, no facial swelling NECK: Supple, trachea midline, painless cervical ROM. LUNGS/CHEST: Non-labored respirations, normal A/P diameter, symmetrical expansion, no chest wall deformity HEART (CV/PV): Regular rate, L radial pulse 2+, no peripheral edema, no JVD. ABDOMEN: Soft, non-distended, no guarding. MSK: Normal ROM, no swelling/deformity to bilateral UEs or LEs, moving all extremities without weakness, no cyanosis, spine midline without tenderness, normal curvature. L UE: Tenderness to palpation at the left wrist without deformity, supination pronation intact, brisk capillary refill distal, no swelling or ecchymosis or skin changes, no crepitus NEURO: Mental Status AAOx4 - alert to person, place, time, events No facial droop, no forehead involvement. Motor: No focal weakness - strength 5/5 in bilateral UEs and LEs, proximal and distal, symmetric. Sensory: sensation intact to light touch globally. Gait normal: patient ambulated without ataxia into ED room. PSYCH: euthymic, cooperative, pleasant, appropriate speech Course Vital Signs Vital signs: Vital Signs Pulse 60 01/17/24 13:10 Respiratory Rate 18 01/17/24 13:10 Blood Pressure 142/82 H 01/17/24 13:10 Pulse Oximetry 96 01/17/24 13:10 Pulse 60 01/17/24 13:10 Respiratory Rate 18 01/17/24 13:10 Respiratory Effort Normal, Non-Labored 01/17/24 13:12 Blood Pressure 142/82 H 01/17/24 13:10 Blood Pressure Position Sitting 01/17/24 13:10 Pulse Oximetry 96 01/17/24 13:10 Oxygen Delivery Method Room Air 01/17/24 13:10 Oxygen Flow Rate 0 01/17/24 13:10 Pain Level 7 01/17/24 13:10 Medical Decision Making This dictation utilizes [id number] dictation software and may contain unedited grammatical errors. 68 y/o M presents to ED today with a chief complaint of fall getting out of his truck, injury to L wrist, L-hand dominant, ROM and strength maintained, no deformity/swelling/crepitus. Patients' medical history: noncontributory. Family and social history: noncontributory. Pertinent exam findings / vital signs include L UE: Tenderness to palpation at the left wrist without deformity, supination pronation intact, brisk capillary refill distal, no swelling or ecchymosis or skin changes, no crepitus. Differential / pathologies of concern include Fracture, Sprain/Strain. Diagnostic studies of: -XR L Wrist - no acute fracture seen. Interventions of: -Velcro universal wrist brace. ED Course/Assessment/Plan: 68-year-old male suffered a minor fall getting out of his truck, he denies head strike or loss of consciousness, he has no swelling or deformity or crepitus and supination pronation is intact, he is neurovascularly intact in the left wrist, I provided a left wrist brace and recommend RICE therapy and therapeutic dosing of Tylenol and ibuprofen and follow-up with orthopedics if pain persist past 2 weeks. Findings not consistent with fracture or neurovascular compromise. Disposition of sprain of left wrist. Patient verbalized understanding of the plan and return to ED criteria and engaged in shared decision making. Medical Records Medical records reviewed: Yes I reviewed the patient's medical records. Imaging Data Radiologic Study: Attestation: I personally reviewed and interpreted this imaging study as follows: Imaging: X-Ray Radiologist's impression: Exam: XR Left Wrist Exam date and time: 01/17/2024 1:42 PM Age: 68 years old Clinical indication: Other: Left wrist pain TECHNIQUE: Imaging protocol: Radiologic exam of the left wrist. Views: 3 or more views. COMPARISON: No relevant prior studies available. FINDINGS: Bones/joints: Mild degenerative change and chondrocalcinosis. Minimal widening of the scapholunate joint. Soft tissues: Unremarkable soft tissues. IMPRESSION: Mild degenerative change and chondrocalcinosis. Dictated and Authenticated by: Sonny Sin MD. Ordering:AFTAB Ravi MD Quality:SDOH Health Related Social Needs: No Data to Display PFSH All Active Problems (Updated 01/17/24 @ 13:58 by TIANA Reynoso) Sprain of left wrist (Acute) Tubular adenoma (Acute ~03/20/23) Serrated adenoma of colon (Acute) Diverticula of colon (Acute) pandiverticula Bile reflux esophagitis (Acute) History of ETOH abuse (Acute) Microcytic anemia (Acute) Liver nodule (Acute) Hypomagnesemia (Acute) Acid reflux (Chronic) Abdominal pain (Acute) Acute pancreatitis (Acute) Thyroid nodule (Acute) Lumbar post-laminectomy syndrome (Acute) Medical History (Updated 01/17/24 @ 13:58 by TIANA Reynoso) Alcohol intake above recommended sensible limits with complication Diverticulosis Insomnia Lipid disorder Dermatitis Actinic keratosis Depressive disorder Spinal stenosis Knee pain 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 Benign prostatic hyperplasia Granuloma annulare Former smoker Decreased hearing of left ear Shoulder lesion, unspecified, right shoulder Allergic to IV contrast Muscle spasms of neck Lumbar radiculopathy Stomach ulcer Cervicalgia Sleep disturbance Epididymal mass Hearing loss in left ear Barretts esophagus (~03/20/23) Nodule of right lobe of thyroid gland Squamous cell carcinoma in situ of skin History of adenomatous polyp of colon Adenocarcinoma of duodenum Peripheral neuropathy Shoulder pain, bilateral Ventral incisional hernia without obstruction or gangrene Encounter for medication monitoring Anxiety disorder Bilateral cataracts Melanoma Right leg pain Skin disease Cancer Difficulty sleeping Basal cell carcinoma Arthritis Spondylolisthesis Lumbosacral spinal stenosis Lumbosacral radiculopathy 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 Father , bladder CA No problems noted. Brother Parkinsons disease Social History Smoking/Tobacco Use Status: Former Tobacco Use Quit Date: 10/26/05 Smoking risk assessment performed?: Yes Alcohol Intake: former Drug use: Never Substance use type: does not use Do you feel safe at home: Yes Do you feel safe in your relationship?: Yes
--- NOTE | 2024-01-17 14:14 | DI.VRAD_ITS ---
PROCEDURE INFORMATION: Exam: XR Left Wrist Exam date and time: 01/17/2024 1:42 PM Age: 68 years old Clinical indication: Other: Left wrist pain TECHNIQUE: Imaging protocol: Radiologic exam of the left wrist. Views: 3 or more views. COMPARISON: No relevant prior studies available. FINDINGS: Bones/joints: Mild degenerative change and chondrocalcinosis. Minimal widening of the scapholunate joint. Soft tissues: Unremarkable soft tissues. IMPRESSION: Mild degenerative change and chondrocalcinosis. Dictated and Authenticated by: Sonny Sin MD. Ordering:AFTAB Ravi MD
== END 2024-01-17 14:12 | disposition home or self-care (01) ==
LOC: ER 14:35
PROVIDERS: Emergency Provider Physician Assistant; PCP Family Medicine
DX: S63.502A Unspecified sprain of left wrist, initial encounter (principal); Z98.1 Arthrodesis status; V58.4XXA Person boarding or alighting a pick-up truck or van injured in noncollision transport accident, initial encounter
CPT/HCPCS: 99283; 73110

== ENCOUNTER → 2024-01-28 02:23 | Outpatient (CLI) | payer MEDICARE, SELFPAY ==
--- NOTE | 2024-01-28 09:00 | DI.US_ITS ---
Exam(s) US THYROID EXAM: US THYROID CLINICAL HISTORY: Assess for change, benign biopsy,thyroid nodule,e04.1. TECHNIQUE: Ultrasound thyroid performed using standard protocol. COMPARISON: US US THYROID from 12/18/2022 US US NEEDLE LOCAL OTHER WO RAD from 02/24/2023 FINDINGS: ISTHMUS: 3 mm RIGHT LOBE: Size: 4.9 x 2.3 x 2.1 cm Echogenicity: Normal. Vascularity: Normal. Nodules: 2.6 x 1.8 by 1.8 mixed solid and cystic isoechoic lesion with smooth margins and punctate ec hogenic foci, TR 4. This lesion was previously biopsied. No significant change in size. LEFT LOBE: Size: 4.2 x 1.3 x 1.6 cm Echogenicity: Normal. Vascularity: Normal. Nodules: Small colloid cysts again noted. OTHER FINDINGS: None. IMPRESSION: Stable size and appearance of right thyroid nodule. DATA REPOSITORY:
== END ==
PROVIDERS: PCP Family Medicine; Visit Provider Otolaryngology
DX: E04.1 Nontoxic single thyroid nodule (principal)
CPT/HCPCS: 76536

== ENCOUNTER 2024-03-17 10:10 | Outpatient (REF) | payer MEDICARE, SELFPAY ==
[2024-03-17 16:53] LABS: Calculated LDL 76 mg/dL (<100); Cholesterol 139 mg/dL (<200); HDL Cholesterol 23 mg/dL (40-60); Triglyceride 204 mg/dL (<150)
== END 2024-03-17 10:11 | disposition home or self-care (01) ==
LOC: NCHCN 10:10
PROVIDERS: PCP Family Medicine; Visit Provider Family Medicine
DX: Z00.00 Encounter for general adult medical examination without abnormal findings (principal)
CPT/HCPCS: 80061

== ENCOUNTER 2024-09-27 00:59 | Outpatient (CLI) | payer MEDICARE, SELFPAY ==
--- NOTE | 2024-09-27 | DI.MRI_ITS ---
Exam(s) MR LOWER JOINT RT WO EXAM: MR LOWER JOINT RT WO CLINICAL HISTORY: Rt knee injury, S89.91XA, ? meniscus tear. TECHNIQUE: Multiplanar multisequence MRI was performed. COMPARISON: MR MR C-SPINE W/O CONTRAS from 07/21/2005 MR MRI LUMBAR SPINE WITHOUT CONTRAST from 07/04/2016 DX XR KNEE 1-2 VIEWS RIGHT (GENERIC) from 09/12/2024 FINDINGS: BONES: There is no fracture or contusion pattern. JOINTS: There is thinning of the articular cartilage over the patella with subchondral edema. There i s also mild subchondral cysts seen in the femoral component of the patellofemoral joint there osteoph ytes seen in the lateral femoral tibial joint.. No effusion is present. TENDONS: Extensor mechanism: Unremarkable. Medial retinaculum: Unremarkable. Lateral retinaculum: Unremarkable. Popliteus: Unremarkable. MUSCLES: Unremarkable. MENISCI: There is hyperintense signal seen in the body of the medial meniscus consistent with a tear. The lateral meniscus is unremarkable. SOFT TISSUES: There is a moderate size popliteal cyst. Varicose veins are seen in the medial soft tis sues. LIGAMENTS: Anterior Cruciate: Unremarkable. Posterior Cruciate: Unremarkable. Medial Collateral:Unremarkable. Lateral Collateral: Unremarkable. OTHER: IMPRESSION: 1. Tear of the body of the medial meniscus. 2. Degenerative changes seen in the knee particularly in the lateral femoral tibial joint in the rayo llofemoral joint. 3. No evidence of a ligament tear. 4. Moderate popliteal cyst. DATA REPOSITORY:
== END 2024-09-27 01:19 ==
LOC: DI 01:00
PROVIDERS: PCP Family Medicine; Visit Provider Specialist
DX: S83.242D Other tear of medial meniscus, current injury, left knee, subsequent encounter (principal); X58.XXXD Exposure to other specified factors, subsequent encounter
CPT/HCPCS: 73721

== ENCOUNTER → 2024-11-28 08:45 | Outpatient (BNVA) | payer MEDICARE, SELFPAY | PROVIDERS: PCP Family Medicine; Referring Provider Family Medicine; Visit Provider Student in an Organized Health Care Education/Training Program | DX: M17.11 Unilateral primary osteoarthritis, right knee (principal); M17.12 Unilateral primary osteoarthritis, left knee | CPT/HCPCS: 99214 ==

== ENCOUNTER 2024-12-09 14:35 | Emergency (ER) | payer MEDICARE, SELFPAY ==
[2024-12-09 14:40] VITALS: BP 101/70; PULSE 58; RESP 20; TEMP 36.9; O2SAT 96
--- NOTE | 2024-12-09 14:45 | DI.RAD_ITS ---
Exam(s) XR HAND LT COMPLETE EXAM: XR HAND LT COMPLETE CLINICAL HISTORY: finger injury. TECHNIQUE: 2D digital imaging was performed. Three views. COMPARISON: No exams were available for comparison FINDINGS: BONES: Nondisplaced fracture extending through the nearly transversely through the midportion of the distal phalanx of the ring finger. No from fracture identified. no bony destructive lesion is seen. JOINTS: No dislocation present. Mild degenerative changes of the interphalangeal joints of the fing ers. SOFT TISSUE: Soft tissue lacerations noted at distal thumb as well as ring finger. No radiopaque for eign bodies. IMPRESSION: Extensive soft tissue injury to the ring finger and thumb. Nondisplaced fracture of the distal phala nx of the ring finger. DATA REPOSITORY: RADIATION DOSE DELIVERED:
[2024-12-09] MEDS: Diph,Pertuss(Acell),Tet Vac/Pf 0.5 ML SYR IM (15:05)
[2024-12-09] MEDS: Lidocaine/Epinephri/Tetracaine Topical Gel 3 ML TP ×2 (15:07→15:36)
--- NOTE | 2024-12-09 15:32 | ED.GENADUL_ITS ---
Discharge Plan Disposition Patient Disposition: Admit to [facility] Discharge Details Chief Complaint: Laceration Clinical Impression: Fracture of distal phalanx of finger, Contact with powered saw as cause of accidental injury Primary Care Provider: Suzie Bal V ED Provider: Melissa Leach Home Meds and New Rx's Prescriptions: No Action glucosamine sulfate 2KCl 1,000 MG tablet 1,000 mg PO DAILY lorazepam [Ativan] 1 MG tablet 1 tab PO HS PRNQty: 90 Rx Instructions: one dose daily cholecalciferol (vitamin D3) 10 mcg (400 unit) capsule 10 mcg PO DAILY lidocaine 5 % cream 1 applic topical BID PRN sildenafil 100 mg tablet 100 mg PO DAILY PRN Rx Instructions: administer 30 minutes to 4 hours before activity acyclovir [Zovirax] 400 mg tablet 800 mg PO DAILY niacinamide 500 mg tablet 500 mg PO DAILY oxycodone 5 mg tablet 5 mg PO TID PRN pregabalin 25 mg capsule 50 mg PO BID acetaminophen [Tylenol Extra Strength] 500 mg tablet 1,000 mg PO QHS PRN sucralfate [Carafate] 1 gram tablet 1 g PO QHS Qty: 30 12RF pantoprazole 20 mg tablet,delayed release (DR/EC) 40 mg PO DAILY Qty: 30 12RF HPI General Date/Time Provider Initiated Documentation: 12/09/24 14:53 . Limitations to Documentation: no limitations . Information obtained by: patient . HPI Narrative: 69-year-old gentleman with past medical history of alcohol abuse presents for evaluation of left hand injury. Patient reports that just prior to arrival he was using his table saw when he lost control of the wood. He reports that the wood kicked back hitting him in the left thumb. He states that his left ring finger got hit by the sawblade. He reports that he did not really look at it much she just wrapped it up and came straight here. Tetanus shot is not up-to-date. Related Data Home Medications ?Medication ?Instructions ?Recorded ?Confirmed glucosamine sulfate 2KCl 1,000 mg 1,000 mg PO DAILY 05/31/14 06/17/24 tablet lorazepam 1 mg tablet (Ativan) 1 tab PO HS PRN #90 tabs 11/05/16 06/17/24 cholecalciferol (vitamin D3) 10 10 mcg PO DAILY 01/02/23 06/17/24 mcg (400 unit) capsule lidocaine 5 % topical cream 1 applic topical BID PRN 01/02/23 06/17/24 sildenafil 100 mg tablet 100 mg PO DAILY PRN 01/02/23 06/17/24 pantoprazole 20 mg tablet,delayed 40 mg (2 x 20 mg) PO DAILY #30 tabs 03/20/23 06/17/24 release sucralfate 1 gram tablet (Carafate) 1 g PO QHS #30 tabs 03/20/23 06/17/24 acyclovir 400 mg tablet (Zovirax) 800 mg PO DAILY 01/28/24 06/17/24 acetaminophen 500 mg tablet 1,000 mg PO QHS PRN 09/27/24 11/28/24 (Tylenol Extra Strength) niacinamide 500 mg tablet 500 mg PO DAILY 09/27/24 oxycodone 5 mg tablet 5 mg PO TID PRN 09/27/24 pregabalin 25 mg capsule 50 mg PO BID 09/27/24 Previous Rx's ?Medication ?Instructions ?Recorded pantoprazole 20 mg tablet,delayed 40 mg (2 x 20 mg) PO DAILY #30 tabs 03/20/23 release sucralfate 1 gram tablet (Carafate) 1 g PO QHS #30 tabs 03/20/23 Allergies Allergy/AdvReac Type Severity Reaction Status Date / Time azithromycin (From Zithromax) Allergy Severe Itching Verified 12/09/24 15:38 diclofenac (From Voltaren) Allergy Severe rash Verified 12/09/24 15:38 iodine Allergy Severe Itching Verified 12/09/24 15:38 iohexol Allergy Intermediate Itching Verified 12/09/24 15:38 hydrocodone Allergy Unknown SEVERE Verified 12/09/24 15:38 ITCHING Iodinated Contrast Media Allergy Unknown itching, Verified 12/09/24 15:38 rash shrimp AdvReac Mild Other (See Verified 12/09/24 15:38 Comment) General Stated Complaint: Laceration BLAISE: 3 Exam Narrative Exam Narrative: Review of Systems: All systems reviewed & are unremarkable except as noted in HPI and below Well-developed, no acute distress NCAT Unlabored respiratory effort Left hand with injury noted to the thumb, the distal palmar aspect of the thumb is avulsed, there is no obvious bone in this area, but there is no repairable laceration there Ring finger with injury noted just proximal to the nail, the distal tip while attached feels loose he does have a sensation intact of the distal tip, he has full range of motion at each joint distribution in isolation Course Vital Signs Vital signs: Vital Signs Temperature 36.9 C 12/09/24 14:40 Pulse 58 L 12/09/24 14:40 Respiratory Rate 20 12/09/24 14:40 Blood Pressure 101/70 12/09/24 14:40 Pulse Oximetry 96 12/09/24 14:40 Temperature 36.9 C 12/09/24 14:40 Temperature Source Oral 12/09/24 14:40 Pulse 58 L 12/09/24 14:40 Respiratory Rate 20 12/09/24 14:40 Blood Pressure 101/70 12/09/24 14:40 Blood Pressure Position Sitting 12/09/24 14:40 Pulse Oximetry 96 12/09/24 14:40 Oxygen Delivery Method Room Air 12/09/24 14:40 Oxygen Flow Rate 0 12/09/24 14:40 Pain Level 9 12/09/24 14:40 Medical Decision Making Emergent evaluation of acute hand injury. Patient is left-hand dominant. There are 2 isolated injuries 1 to the thumb and 1 to the ring finger. I am concerned about ligamentous and bony disruption of the distal phalanx of the ring finger. X-ray was obtained and does demonstrate fracture through the distal phalanx. Sensation is intact and does have isolated movement of the DIP. Patient was given 2 g of Ancef and his tetanus was updated. I discussed with orthopedic surgery who feels the patient would benefit from a pinning and will take the patient to the operating room to perform this. Quality:SDOH Health Related Social Needs: 2 No Data to Display PFSH All Active Problems (Updated 12/09/24 @ 15:40 by Melissa Leach MD) Contact with powered saw as cause of accidental injury (Acute) Fracture of distal phalanx of finger (Acute) Bilateral primary osteoarthritis of knee (Chronic) Hearing loss in left ear (Acute) Cerumen impaction (Acute) Impacted cerumen, left ear (Acute) Tubular adenoma (Acute ~03/20/23) Serrated adenoma of colon (Acute) Diverticula of colon (Acute) pandiverticula Bile reflux esophagitis (Acute) History of ETOH abuse (Acute) Microcytic anemia (Acute) Liver nodule (Acute) Hypomagnesemia (Acute) Acid reflux (Chronic) Abdominal pain (Acute) Acute pancreatitis (Acute) Thyroid nodule (Acute) Lumbar post-laminectomy syndrome (Acute) Medical History Alcohol intake above recommended sensible limits with complication Diverticulosis Insomnia Lipid disorder Dermatitis Actinic keratosis Depressive disorder Spinal stenosis Knee pain 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 Benign prostatic hyperplasia Granuloma annulare Former smoker Decreased hearing of left ear Shoulder lesion, unspecified, right shoulder Allergic to IV contrast Muscle spasms of neck Lumbar radiculopathy Stomach ulcer Cervicalgia Sleep disturbance Epididymal mass Barretts esophagus (~03/20/23) Nodule of right lobe of thyroid gland Squamous cell carcinoma in situ of skin History of adenomatous polyp of colon Adenocarcinoma of duodenum Peripheral neuropathy Shoulder pain, bilateral Ventral incisional hernia without obstruction or gangrene Encounter for medication monitoring Anxiety disorder Bilateral cataracts Melanoma Right leg pain Skin disease Cancer Difficulty sleeping Basal cell carcinoma Arthritis Spondylolisthesis Lumbosacral spinal stenosis Lumbosacral radiculopathy 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 Father , bladder CA No problems noted. Brother Parkinsons disease Social History Smoking/Tobacco Use Status: Former Tobacco Use Quit Date: 10/26/05 Smoking risk assessment performed?: Yes Alcohol Intake: former Drug use: Never Substance use type: does not use Do you feel safe at home: Yes Do you feel safe in your relationship?: Yes
--- NOTE | 2024-12-09 15:47 | OCONE_ITS ---
Date of service: 12/09/24 Time of Service: 15:30 History of Present Illness History of Present Illness Chief Complaint: Left Ring Finger and Thumb Injuries Narrative: Johan is an active 69-year-old male who was doing some cabinet making. A piece of wood kicked back and hit him viciously against the left hand. He had immediate pain and lacerations about the thumb and ring finger. He came to the emergency department was evaluated by Dr. Villegas who called me in consultation. He had no other notable injury. He is left-hand dominant. There was multiple stellate type laceration to the ring finger with obvious deformity of the fi ngertip as well as a palmar laceration with some tissue loss about the thumb. He has had previous injuries to his hands but none in this manner. Consults Consult date: 12/09/24 Requesting physician: Melissa Leach Consult Reason Left hand injury with tablesaw Assessment and Plan Assessment and plan (1) Open fracture of distal phalanx of left ring finger with mallet deformity: Status: Acute (2) Laceration of left thumb: Status: Acute Assessment and plan: Johan is a 69-year-old active male who has multiple laceration about his left hand. At the left ring finger injury is a an open fracture of the distal phalanx with notable deformity. I would recommend at this point we proceed for an irrigation debridement with pinning of the finger and laceration repair. There is availability in the operating room as we moved to the operating room to do this or he should be on a discharge to home with local anesthetic. At the same time I would perform a irrigation debridement and partial closure of the left thumb laceration. I expect this will heal just fine but will take some time. I did review the technical details of the case with Johan. I discussed the risk to include bleeding, infection, pain, stiffness, tendon involvement not recognized, need for repeat procedures, damage nerves and vessels not recognized. Despite these risk, he elects to proceed. Review of Systems All systems reviewed & are unremarkable except as noted in HPI and below PFSH All Active Problems (Updated 12/09/24 @ 15:56 by Bebo Flores MD) Laceration of left thumb (Acute) Open fracture of distal phalanx of left ring finger with mallet deformity (Acute) Contact with powered saw as cause of accidental injury (Acute) Fracture of distal phalanx of finger (Acute) Bilateral primary osteoarthritis of knee (Chronic) Hearing loss in left ear (Acute) Cerumen impaction (Acute) Impacted cerumen, left ear (Acute) Tubular adenoma (Acute ~03/20/23) Serrated adenoma of colon (Acute) Diverticula of colon (Acute) pandiverticula Bile reflux esophagitis (Acute) History of ETOH abuse (Acute) Microcytic anemia (Acute) Liver nodule (Acute) Hypomagnesemia (Acute) Acid reflux (Chronic) Abdominal pain (Acute) Acute pancreatitis (Acute) Thyroid nodule (Acute) Lumbar post-laminectomy syndrome (Acute) Medical History Alcohol intake above recommended sensible limits with complication Diverticulosis Insomnia Lipid disorder Dermatitis Actinic keratosis Depressive disorder Spinal stenosis Knee pain 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 Benign prostatic hyperplasia Granuloma annulare Former smoker Decreased hearing of left ear Shoulder lesion, unspecified, right shoulder Allergic to IV contrast Muscle spasms of neck Lumbar radiculopathy Stomach ulcer Cervicalgia Sleep disturbance Epididymal mass Barretts esophagus (~03/20/23) Nodule of right lobe of thyroid gland Squamous cell carcinoma in situ of skin History of adenomatous polyp of colon Adenocarcinoma of duodenum Peripheral neuropathy Shoulder pain, bilateral Ventral incisional hernia without obstruction or gangrene Encounter for medication monitoring Anxiety disorder Bilateral cataracts Melanoma Right leg pain Skin disease Cancer Difficulty sleeping Basal cell carcinoma Arthritis Spondylolisthesis Lumbosacral spinal stenosis Lumbosacral radiculopathy 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 Father , bladder CA No problems noted. Brother Parkinsons disease Social History Smoking/Tobacco Use Status: Former Tobacco Use Quit Date: 10/26/05 Smoking risk assessment performed?: Yes Alcohol Intake: former Drug use: Never Substance use type: does not use Do you feel safe at home: Yes Do you feel safe in your relationship?: Yes Exam Const General: cooperative, healthy appearing, comfortable and no acute distress Extrem Other: Evaluation of the left hand shows a primary longitudinal laceration over the dorsum of the ring finger extending from the base of the nail through the midportion of the middle phalanx. There is an oblique extension around the base of the nail and transversely towards the mid coronal plane of the index finger and within the midportion of the distal phalanx. There are also multiple smaller jagged stellate lacerations adjacent to this oblique portion. As for the thumb there is a primary oblique laceration over the palmar aspect of the thumb around the IP joint or just distal to it. There appears to be some tissue loss. No exposed bone or tendon. He is able to actively flex the thumb and extend the thumb, intact FPL and EPL. He is able to actively flex the PIP joint of the ring finger. There is some apparent motion of the DIP joint with flexion although difficult to see with the deformity. He is able to actively extend the finger at the PIP joint. Results Last Vital Signs Temp 36.9 C 12/09/24 14:40 Pulse 58 L 12/09/24 14:40 Resp 20 12/09/24 14:40 BP 101/70 12/09/24 14:40 Pulse Ox 96 12/09/24 14:40 Imaging Imaging Studies: X-ray of the left hand finger demonstrates a nondisplaced oblique fracture of the midportion of the distal phalanx of the ring finger. No fracture apparent in the thumb.
[2024-12-09] MEDS: ceFAZolin 2 GM/50 ML BAG IVPB (15:56)
--- NOTE | 2024-12-09 16:18 | W.PM.DSUDISC ---
Date of service: 12/09/24 Discharge Plan Disposition Patient Disposition: Home Condition: Good Discharge Details Clinical Impression: Fracture of distal phalanx of finger, Contact with powered saw as cause of accidental injury, Laceration of left thumb, Open fracture of distal phalanx of left ring finger with mallet deformity Primary Care Provider: Suzie Bal V ED Provider: Melissa Leach Home Meds and New Rx's Prescriptions: Continued glucosamine sulfate 2KCl 1,000 MG tablet 1,000 mg PO DAILY lorazepam [Ativan] 1 MG tablet 1 tab PO HS PRNQty: 90 Rx Instructions: one dose daily cholecalciferol (vitamin D3) 10 mcg (400 unit) capsule 10 mcg PO DAILY lidocaine 5 % cream 1 applic topical BID PRN sildenafil 100 mg tablet 100 mg PO DAILY PRN Rx Instructions: administer 30 minutes to 4 hours before activity acyclovir [Zovirax] 400 mg tablet 800 mg PO DAILY niacinamide 500 mg tablet 500 mg PO DAILY oxycodone 5 mg tablet 5 mg PO TID PRN pregabalin 25 mg capsule 50 mg PO BID acetaminophen [Tylenol Extra Strength] 500 mg tablet 1,000 mg PO QHS PRN sucralfate [Carafate] 1 gram tablet 1 g PO QHS Qty: 30 12RF pantoprazole 20 mg tablet,delayed release (DR/EC) 40 mg PO DAILY Qty: 30 12RF Discharge Instructions Additional Instructions: Thumb Laceration and Ring Finger Fracture Discharge Instructions Activity: You should keep the hand/thumb elevated as much as possible for the first few days. You may use the other fingers as tolerated but avoid trying to do too much too soon. You may perform light activities with the splint in place. Dressing/Cast: Your dressing should stay in place at all times. Do NOT get it wet. You may loosen the HUSSEIN wrap if you feel it is too tight and then rewrap more loosely. Medications: - You should take Tylenol and Ibuprofen or Naproxen for baseline pain control. - You may apply ice over the thumb and ring finger. Follow-up: 10-14 days Referrals: Bebo Flores MD [ [facility] STAFF PHYSICIAN] - DS: Diagnosis Discharge Diagnosis (1) Open fracture of distal phalanx of left ring finger with mallet deformity: Status: Acute (2) Laceration of left thumb: Status: Acute
[2024-12-09] MEDS: Sodium Bicarbonate 50 MEQ/50 ML VIAL (16:30)
[2024-12-09] MEDS: Lidocaine 1% Pres-Free W/EPI 1/200,000 10 ML VIAL (16:30)
--- NOTE | 2024-12-09 16:47 | ROE_ITS ---
Operative Note Operative Note PRE-OP DIAGNOSIS: Left Ring Finger Complex Laceration and Open Distal Phalanx Fracture, 3cm Left Thumb Complex Laceration, 2.5cm PROCEDURE: Irrigation and debridement of left ring finger distal phalanx open fracture with open reduction and pinning along with complex laceration repair Irrigation and debridement of left thumb laceration with indirect closure of deep tissue with notable skin loss, approximate 2.5 cm SURGEON: Bebo Flores ANESTHESIA TYPE: Local By Surgeon Refer to Anesthesia Record ESTIMATED BLOOD LOSS: 5 TOURNIQUET TIME: 0 COMPLICATIONS: None Indications: Johan is a 69-year-old who was using a table saw today when a piece of hard wood kicked back onto his left hand. He suffered lacerations of the left thumb and left ring finger. The ring finger was associate with an open distal phalanx fracture. Due to the nature of the injury I recommend we proceed to the operating room for irrigation debridement and fixation of the fractures along with laceration repair. I reviewed the procedure with him. I discussed the risk to include bleeding, infection, damage nerves and vessels, damage to muscle tissues, worsening skin necrosis or need for repeat procedures. Despite these risk, he elected to proceed. Findings: There was a highly unstable fracture about the distal phalanx of the left ring finger with significant complexity to the laceration involving the nailbed, nail plate, and surrounding soft tissues. Flexor and extensor tendons were intact. Irrigation debridement was performed. The fracture was reduced and pinned into position. The nailbed was repaired with skin glue and the skin was repaired with 4-0 nylon. The left thumb laceration had significant epidermal loss. However, there was pulp which was reapproximated after irrigation and debridement. Procedure Description: Johan was greeted in the PACU. The consent was reviewed the patient and signed. The history and physical was performed. He was taken to the operating room. He is kept on the stretcher. The left hand was placed onto a hand table. The palmar aspect of the ring finger and thumb were prepped with ChloraPrep. A timeout was performed for safe surgery. I then performed a digital block of the thumb and the index finger from a palmar approach utilizing 10 cc of 1% lidocaine with epinephrine, buffered with sodium bicarbonate. 2 g of cefazolin was administered. The left hand was then prepped with Betadine and draped with a standard you around the wrist. Both fingers were checked to make sure anesthetic had set up fully. With com plete anesthesia of the digits, an aggressive irrigation and debridement was performed. There was notable skin loss of both, worse on the thumb. There is also some tissue loss of the ring finger with portions of the nail plate and nailbed apparently absent. The laceration pattern was a longitudinal portion about 2 cm over the dorsum of the left ring finger from the midportion of the middle phalanx towards the base of the nail and then extending obliquely around the mid axial plane of the midportion of the distal phalanx. There was some stellate complexity to the laceration with tissue loss adjacent to the nailbed and eponychial fold. The thumb had a large section of epithelial loss but fortunately had significant pulp remaining. Some of this pulp appeared to be damaged but there is good vascularity and without gross necrosis. After thorough debridement of the ring finger I distracted the fracture and placed a 0.045 inch K wire from an antegrade to retrograde and then antegrade d irection. This was checked with fluoroscopy which showed appropriate positioning of the K wire through the fracture and into the base of the middle phalanx. There was slight extension of the fracture but overall alignment was nearly anatomic. I then reapproximated the edges of the torn nailbed. There was some significant damage to the tissue but I was able to cover the distal phalanx completely with the portions of the nailbed. A small amount of skin glue was then utilized to hold these edges together. Once this had dried the overlying skin was reapproximated. Once again there was some tissue loss at the level of the eponychial fold. 4-0 nylon was utilized to reapproximate these edges as best as possible. The K wire of the ring finger was cut and a Cem ball was placed. Attention was then turned to the thumb. Once again there is no apparent necrotic tissue. There was minimal epidermis left in this area. However, I was able to place a few sutures through the pulp of the thumb in a broad fashion attaching to more decent tissue proximally. This reapproximated the defect in multiple places. He was able demonstrate active thumb flexion and thumb extension. The wounds were then dressed with Xeroform, 4 x 4, conform dressing. At the end the case all counts were correct. He tolerated the procedure well was transferred back to the day surgery unit in a stable condition. Date of Procedure: 12/09/24
[2024-12-09 16:50] VITALS: BP 137/82; PULSE 70; RESP 16; TEMP 36.4; O2SAT 96
--- NOTE | 2024-12-09 17:14 | DI.RAD_ITS ---
Exam(s) XR HAND LT LIMITED EXAM: XR HAND LT LIMITED CLINICAL HISTORY: LEFT FINGER FRACTURE, PINNING IN OR. TECHNIQUE: 2D and realtime digital imaging was performed. COMPARISON: CR XR HAND LT COMPLETE from 12/09/2024 FINDINGS: Hard copy images show placement of a pin through the distal phalanx into the head of the middle phala nx. Please see procedure note for details. Fluoro time: 30seconds RADIATION DOSE DELIVERED: sandra Vitale=0.15 mGy
== END 2024-12-09 17:05 | disposition home or self-care (01) ==
PROVIDERS: Student in an Organized Health Care Education/Training Program; Emergency Provider Emergency Medicine; PCP Family Medicine
PROC: (CPT 26727; principal; 2024-12-09 15:15)
DX: S62.665B Nondisplaced fracture of distal phalanx of left ring finger, initial encounter for open fracture; S61.112A Laceration without foreign body of left thumb with damage to nail, initial encounter; W31.2XXA Contact with powered woodworking and forming machines, initial encounter; Z23 Encounter for immunization; Z98.1 Arthrodesis status; Z87.891 Personal history of nicotine dependence
CPT/HCPCS: 26765; 11760; 11010; 12031; 76000; 90471; 90715; 96365; 99284; 99285; 73120; 73130; J0690; J2004

== ENCOUNTER 2024-12-19 15:52 | Outpatient (CLI) | payer MEDICARE, SELFPAY ==
--- NOTE | 2024-12-19 13:33 | DI.RAD_ITS ---
Exam(s) XR FINGER LT RING EXAM: XR FINGER LT RING INDICATION: pain. COMPARISON: CR XR HAND LT COMPLETE from 12/09/2024 CR XR HAND LT LIMITED from 12/09/2024 TECHNIQUE: 2D digital imaging was performed. Three views. FINDINGS: A pin is again noted through the distal and middle phalanges for fracture fixation. The alignment i s unchanged. DATA REPOSITORY: RADIATION DOSE DELIVERED:
== END 2024-12-19 15:53 | disposition home or self-care (01) ==
LOC: DIORS 15:52
PROVIDERS: PCP Family Medicine; Referring Provider Family Medicine; Visit Provider Physician Assistant
DX: M20.012 Mallet finger of left finger(s); Z47.89 Encounter for other orthopedic aftercare; S61.012D Laceration without foreign body of left thumb without damage to nail, subsequent encounter; S62.635D Displaced fracture of distal phalanx of left ring finger, subsequent encounter for fracture with routine healing; X58.XXXD Exposure to other specified factors, subsequent encounter
CPT/HCPCS: 99024; 73140

== ENCOUNTER → 2024-12-26 12:53 | Outpatient (BNVA) | payer MEDICARE, SELFPAY | PROVIDERS: PCP Family Medicine; Referring Provider Family Medicine; Visit Provider Student in an Organized Health Care Education/Training Program | DX: S62.635D Displaced fracture of distal phalanx of left ring finger, subsequent encounter for fracture with routine healing (principal); S61.012D Laceration without foreign body of left thumb without damage to nail, subsequent encounter; X58.XXXD Exposure to other specified factors, subsequent encounter; M20.012 Mallet finger of left finger(s) | CPT/HCPCS: 99024 ==

== ENCOUNTER 2025-01-05 12:03 | Outpatient (CLI) | payer MEDICARE, SELFPAY ==
--- NOTE | 2025-01-05 09:00 | DI.RAD_ITS ---
Exam(s) XR FINGER LT RING EXAM: XR FINGER LT RING EXAM DATE/TIME: CLINICAL HISTORY: F/U LRF FX. TECHNIQUE: 2D digital imaging was performed of the left finger. Three views were obtained. PA/AP, oblique, and lateral views were obtained. COMPARISON: None. FINDINGS: BONES: The percutaneous pin has been removed. There has been no change in alignment of the fracture involving the distal phalanx of the ring finger. The fracture line is still visualized. No new frac ture is seen. There is again seen an osseous density adjacent to the distal phalanx. No bony destru ctive lesion is seen. JOINTS: No dislocation is present. Degenerative changes are at the interphalangeal joint of the thum b. SOFT TISSUE: Normal. IMPRESSION: Stable alignment of the fracture involving the distal phalanx of the ring finger. Interval removal o f the percutaneous pin. DATA REPOSITORY: RADIATION DOSE DELIVERED:
== END 2025-01-05 12:04 | disposition home or self-care (01) ==
LOC: DIORS 12:04
PROVIDERS: PCP Family Medicine; Visit Provider Physician Assistant
DX: M20.012 Mallet finger of left finger(s); S62.635D Displaced fracture of distal phalanx of left ring finger, subsequent encounter for fracture with routine healing; S61.012D Laceration without foreign body of left thumb without damage to nail, subsequent encounter; X58.XXXD Exposure to other specified factors, subsequent encounter
CPT/HCPCS: 99024; 73140

== ENCOUNTER 2025-01-19 13:54 | Outpatient (CLI) | payer MEDICARE, SELFPAY ==
--- NOTE | 2025-01-19 10:15 | DI.RAD_ITS ---
Exam(s) XR FINGER LT RING EXAM: XR FINGER LT RING CLINICAL HISTORY: F/U LRF FX. TECHNIQUE: 2D digital imaging was performed. Three views. COMPARISON: None. FINDINGS: BONES: There has been increase in dorsal angulation of the fracture through the distal phalanx with c ompared with the prior exam. Small comminuted bony fragment again noted. No bony destructive lesion is seen. JOINTS: No dislocation present. SOFT TISSUE: Normal. IMPRESSION: Mildly increased dorsal angulation at the distal phalangeal fracture. DATA REPOSITORY: RADIATION DOSE DELIVERED:
== END 2025-01-19 13:55 | disposition home or self-care (01) ==
LOC: DIORS 13:55
PROVIDERS: PCP Family Medicine; Visit Provider Student in an Organized Health Care Education/Training Program
DX: S62.635D Displaced fracture of distal phalanx of left ring finger, subsequent encounter for fracture with routine healing (principal); S61.012D Laceration without foreign body of left thumb without damage to nail, subsequent encounter; X58.XXXD Exposure to other specified factors, subsequent encounter; M20.012 Mallet finger of left finger(s)
CPT/HCPCS: 99024; 73140

== ENCOUNTER 2025-03-03 01:17 | Outpatient (CLI) | payer MEDICARE, SELFPAY ==
[2025-03-03 10:05] LABS: HCT 39.7 % (40.0-50.0); HGB 13.8 g/dL (13.5-17.5); MCH 34.1 pg (27.0-33.0); MCHC 34.8 % (32.0-36.0); MCV 98 fL (80-95); MPV 10.3 fL (8.0-11.0); Platelet Count 236 10^3/uL (130-400); RBC 4.05 10^6/uL (4.36-5.78); RDW-SD 50.7 fL; WBC 5.86 10^3/uL (4.4-10.8)
[2025-03-03 10:27] LABS: BUN 16 mg/dL (7-18); CREATININE 0.9 mg/dL (0.70-1.30); Calcium 8.8 mg/dL (8.5-10.1); Chloride 101 mmol/L (98-107); Estimated GFR 91.31 (mL/min/1.73m2); Glucose 98 mg/dL (74-106); Potassium 4.3 mmol/L (3.5-5.1); Sodium 137 mmol/L (136-145)
== END 2025-03-03 01:18 | disposition home or self-care (01) ==
LOC: LBO 01:17
PROVIDERS: PCP Family Medicine; Visit Provider Student in an Organized Health Care Education/Training Program
DX: M17.0 Bilateral primary osteoarthritis of knee (principal); Z01.818 Encounter for other preprocedural examination
CPT/HCPCS: 36415; 80048; 85027; 99215

== ENCOUNTER 2025-03-15 06:01 | Day surgery (SDC) | payer MEDICARE, SELFPAY ==
[2025-03-15] VITALS (58 sets, daily range): BP systolic 90–138; BP diastolic 58–95; PULSE 42–66; RESP 9–22; TEMP 36.2–36.9; O2SAT 91–100; BMI 26.4
--- NOTE | 2025-03-15 06:36 | ANES.PREOP_ITS ---
General Info Date of Service Date Performed: 03/15/25 Height: 5 ft 11 in Weight: 86.183 kg Body Mass Index (BMI): 26.4 Surgical Procedure: Operation Date: 03/15/25 07:50 Proposed Procedure Side Surgeon p Knee Total Arthroplasty Bilateral Bilateral Bebo Flores MD Meds Allergies and Home Medications Allergies Allergy/AdvReac Type Severity Reaction Status Date / Time azithromycin (From Zithromax) Allergy Severe Itching Verified 03/15/25 06:20 diclofenac (From Voltaren) Allergy Severe rash Verified 03/15/25 06:20 iodine Allergy Severe Itching Verified 03/15/25 06:20 ciprofloxacin Allergy Intermediate Itching Verified 03/15/25 06:20 iohexol Allergy Intermediate Itching Verified 03/15/25 06:20 hydrocodone Allergy Unknown SEVERE Verified 03/15/25 06:20 ITCHING Iodinated Contrast Media Allergy Unknown itching, Verified 03/15/25 06:20 rash shrimp AdvReac Mild Other (See Verified 03/15/25 06:20 Comment) Home Medication ?Medication ?Instructions ?Recorded glucosamine sulfate 2KCl 1,000 mg 1,000 mg PO DAILY 05/31/14 tablet lorazepam 1 mg tablet (Ativan) 1 tab PO HS PRN #90 tabs 11/05/16 cholecalciferol (vitamin D3) 10 10 mcg PO DAILY 01/02/23 mcg (400 unit) capsule lidocaine 5 % topical cream 1 applic topical BID PRN 01/02/23 pantoprazole 20 mg tablet,delayed 40 mg (2 x 20 mg) PO DAILY #30 tabs 03/20/23 release acyclovir 400 mg tablet (Zovirax) 800 mg PO BID 01/28/24 acetaminophen 500 mg tablet 1,000 mg PO QHS PRN 09/27/24 (Tylenol Extra Strength) niacinamide 500 mg tablet 500 mg PO DAILY 09/27/24 pregabalin 25 mg capsule 50 mg PO BID 09/27/24 tadalafil 10 mg tablet mg 03/15/25 Current Visit Medications: Current Medications Generic Name Dose Route Start Last Admin Trade Name Freq PRN Reason Stop Dose Admin Acetaminophen 1,000 mg 03/15/25 06:00 Acetaminophen 500 Mg Tab PO 03/15/25 23:59 PREOP NAMRATA Celecoxib 400 mg 03/15/25 06:00 Celecoxib 200 Mg Cap PO 03/15/25 23:59 PREOP NAMRATA Gabapentin 300 mg 03/15/25 06:00 Gabapentin 300 Mg Cap PO 03/15/25 23:59 PREOP NAMRATA Ringer's Solution 1,000 mls @ 80 mls/hr 03/15/25 06:00 IV 03/15/25 23:59 INFUSION NAMRATA Cefazolin Sodium/Dextrose 2 gm in 50 mls @ 100 mls/hr 03/15/25 06:00 Ancef Duplex IVPB 03/15/25 23:59 PREOP NAMRATA Tranexamic Acid/Sodium Chloride 1,000 mg in 100 mls @ 600 mls/hr 03/15/25 06:00 IVPB 03/15/25 23:59 PREOP NAMRATA Tranexamic Acid/Sodium Chloride 1,000 mg in 100 mls @ 600 mls/hr 03/15/25 06:00 IVPB 03/15/25 23:59 DIRECTED NAMRATA IV Miscellaneous Supplies 1 each 03/15/25 06:00 Iv Access IV 03/15/25 23:59 DIRECTED NAMRATA Sodium Chloride 0 ml 03/15/25 06:00 Normal Saline Flush 10 Ml Syr IV 03/15/25 23:59 PRN PRN Sodium Chloride 0 ml 03/15/25 06:00 Normal Saline 10 Ml Vial IJ 03/15/25 23:59 DIRECTED PRN Sterile Water 0 ml 03/15/25 06:00 Water,Injection,Sterile 10 Ml Vial IJ 03/15/25 23:59 DIRECTED PRN PFSH Active Problems Active Problems: Problem Status Onset Code Asymmetrical sensorineural hearing loss Acute H90.3 Conductive hearing loss, external ear Acute H90.2 Laceration of left thumb Acute S61.012A Open fracture of distal phalanx of left ring finger with mallet deformity Acute S62.635B, M20.012 Bilateral primary osteoarthritis of knee Chronic M17.0 Hearing loss in left ear Acute H91.92 Cerumen impaction Acute H61.20 Impacted cerumen, left ear Acute H61.22 Tubular adenoma Acute ~23 D36.9 Serrated adenoma of colon Acute D12.6 Diverticula of colon Acute K57.30 Bile reflux esophagitis Acute K21.00 History of ETOH abuse Acute F10.11 Microcytic anemia Acute D50.9 Liver nodule Acute K76.89 Hypomagnesemia Acute E83.42 Acid reflux Chronic K21.9 Abdominal pain Acute R10.9 Acute pancreatitis Acute K85.90 Thyroid nodule Acute E04.1 Lumbar post-laminectomy syndrome Acute M96.1 Medical History Medical History Alcohol intake above recommended sensible limits with complication Diverticulosis Insomnia Lipid disorder Dermatitis Actinic keratosis Depressive disorder Spinal stenosis Knee pain 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 Benign prostatic hyperplasia Granuloma annulare Former smoker Decreased hearing of left ear Shoulder lesion, unspecified, right shoulder Allergic to IV contrast Muscle spasms of neck Lumbar radiculopathy Stomach ulcer Cervicalgia Sleep disturbance Epididymal mass Barretts esophagus (~03/20/23) Nodule of right lobe of thyroid gland Squamous cell carcinoma in situ of skin History of adenomatous polyp of colon Adenocarcinoma of duodenum Peripheral neuropathy Shoulder pain, bilateral Ventral incisional hernia without obstruction or gangrene Encounter for medication monitoring Anxiety disorder Bilateral cataracts Melanoma Right leg pain Skin disease Cancer Difficulty sleeping Basal cell carcinoma Arthritis Spondylolisthesis Lumbosacral spinal stenosis Lumbosacral radiculopathy 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 Polyneuropathy Lumbar facet arthropathy Sciatica Low back pain Lumbar stenosis Pars defect Surgical History Surgical History History of cataract extraction History of esophagogastroduodenoscopy (EGD) (~03/20/23) History of colonoscopy with polypectomy (~03/20/23) History of lumbar spinal fusion H/O Whipple procedure H/O hernia repair S/P lumbar fusion Open Carpal Tunnel release (~08/2008) B/L Repair of inguinal hernia (06/05/00) left Appendectomy (11/29/99) [facility] Tobacco Smoking/Tobacco Use Status: Former Tobacco Use Passive smoking exposure: No Alcohol Alcohol Intake: former Substance Use Substance use: Never Substance use type: does not use Vital Signs and Lab Results Lab Results Blood Type / Crossmatch: No Data to Display Complete Blood Count: White Blood Count 5.86 10^3/uL (4.4-10.8) 03/03/25 09:55 Red Blood Count 4.05 10^6/uL (4.36-5.78) L 03/03/25 09:55 Hemoglobin 13.8 g/dL (13.5-17.5) 03/03/25 09:55 Hematocrit 39.7 % (40.0-50.0) L 03/03/25 09:55 Platelet Count 236 10^3/uL (130-400) 03/03/25 09:55 Complete Metabolic Panel: Sodium 137 mmol/L (136-145) 03/03/25 09:55 Potassium 4.3 mmol/L (3.5-5.1) 03/03/25 09:55 Chloride 101 mmol/L (98-107) 03/03/25 09:55 Carbon Dioxide 28.0 mmol/L (21.0-32.0) 03/03/25 09:55 BUN 16 mg/dL (7-18) 03/03/25 09:55 Creatinine 0.9 mg/dL (0.70-1.30) 03/03/25 09:55 Est GFR (CKD-EPI 2020) 91.31 (mL/min/1.73m2) 03/03/25 09:55 Calcium 8.8 mg/dL (8.5-10.1) 03/03/25 09:55 Glucose 98 mg/dL (74-106) 03/03/25 09:55 Liver Function Panel: No Data to Display Coagulation Panel: No Data to Display Cardiac Panel: No Data to Display Arterial Blood Gas: No Data to Display Venous Blood Gas: No Data to Display Pancreas Panel: No Data to Display Thyroid Panel: No Data to Display Infectious Disease: No Data to Display Blood Cultures: No Data to Display Toxicology Panel: No Data to Display Imaging and Studies Imaging and Studies Study information below may be from another EMR and interpreted by another provider. Please see original notes in EMR for more complete details. EKG Summary: PATIENT NAME: Johan Del Valle #: [id number] ORDERING PROVIDER: Lola Girard M.D. PRIMARY CARE PROVIDER: KYLE PATTERSON MD DATE/TIME OF SERVICE: 02/10/23830 : 4PERFORMING LOCATION: ER APPROVED REPORT Exam: Resting ECG Reason for Exam: left sided chest pain Patient Location: E HR:45 bpm ECG Measurements Heart Rate 45 AXIS [place] [id number] P [id number] QRSd 98 QRS -26 QT 523 T59 QTc 451 Conclusion Atrial fibrillation...? atrial activity Some intermittent P waves and irregulqarity Anesthesia Assessment and Plan Anesthesia History Personal History: No History of Anesthesia Complications Family History: No Family History of Anesthesia Complications Exercise Tolerance Exercise Tolerance: Metabolic Equivalents>4 Pertinent Negatives Pertinent Negatives: No Symptoms of GERD, No Major Cardiovascular Symptoms or Complaints, No Major Pulmonary Symptoms or Complaints and No History of CVA/TIA Cardiac & Pulmonary Exam Cardiac Exam: Normal S1/S2 Heart Sounds Pulmonary Exam: Clear Bilateral Breath Sounds and No cough or Cold Implantable Cardiac Device Does patient have a Pacemaker or an ICD?: No Airway Exam Known Difficult Airway: No Mallampati Class: 2 Mouth Opening: Normal (> 3cm) Thyromental Distance: Greater than 3 cm Neck Range of Motion: Full ROM Neck Circumference: Normal Teeth Condition: Normal Dentition ASA Classification ASA Score: ASA 2 Emergency Case?: No NPO Status NPO Status: NPO Clears >2 hours, Solids >8 hours Anesthesia Plan Resuscitation Status: Full Code Anesthesia Technique: Spinal Anesthesia Airway Planned: Natural Airway Pain Management: Surgeon and patient request nerve block Monitors Used: Standard Monitors Preoperative Comments:: 70 YO M with pertinent PSHx of Whipple repair, lumbar fusion, and hernia repair. Per patient, still has residual transient numbness in bilateral feet, around the peroneal and posterior tibial nerve distributions. Of note, patient reports lower back pain that persists despite lumbar fusion. GERD has resolved since Whipple.
[2025-03-15] MEDS: Celecoxib 200 MG CAP 400 MG PO (06:40)
[2025-03-15] MEDS: Gabapentin 300 MG CAP PO (06:40)
[2025-03-15] MEDS: Acetaminophen 500 MG TAB 1000 MG PO ×2 (06:41→14:20)
[2025-03-15] MEDS: Lactated Ringers 1,000 ML 80 ML IV ×2 (07:00→10:06)
--- NOTE | 2025-03-15 07:12 | PDOC.DSDIS_ITS ---
Date of service: 03/15/25 Discharge Plan Disposition Patient Disposition: Home Condition: Good Discharge Details Reason For Visit: B/L TKR Attending Provider: Bebo Flores Primary Care Provider: Suzie Bal V Home Meds and New Rx's Prescriptions: New acetaminophen 500 mg tablet 1,000 mg PO TID Qty: 90 3RF aspirin 81 mg tablet,delayed release (DR/EC) 81 mg PO BID Qty: 60 0RF celecoxib 200 mg capsule 200 mg PO BID Qty: 60 0RF dexamethasone 4 mg tablet 4 mg PO DAILY Qty: 2 0RF docusate sodium 100 mg capsule 100 mg PO BID PRNQty: 28 0RF oxycodone 5 mg tablet 5 mg PO Q4H PRNQty: 18 0RF Continued glucosamine sulfate 2KCl 1,000 MG tablet 1,000 mg PO DAILY lorazepam [Ativan] 1 MG tablet 1 tab PO HS PRNQty: 90 Rx Instructions: one dose daily cholecalciferol (vitamin D3) 10 mcg (400 unit) capsule 10 mcg PO DAILY lidocaine 5 % cream 1 applic topical BID PRN acyclovir [Zovirax] 400 mg tablet 800 mg PO BID niacinamide 500 mg tablet 500 mg PO DAILY pregabalin 25 mg capsule 50 mg PO BID pantoprazole 20 mg tablet,delayed release (DR/EC) 40 mg PO DAILY Qty: 30 12RF tadalafil 10 mg tablet Patient Comments: TAKE ONE TABLET BY MOUTH THREE TIMES A WEEK NEEDED, CAN INCREASE TO 2 TABLETS PER DOSE IF NEEDED Discontinued acetaminophen [Tylenol Extra Strength] 500 mg tablet 1,000 mg PO QHS PRN Discharge Instructions Additional Instructions: Total Knee Discharge Instructions Activity: The most important activity is to walk and to work on gentle motion (both flexion and extension). You should try to take short walks a few times a day. It is important that when resting you work on keeping the knee straight. Avoid putting a pillow behind the knee as this will encourage flexion. Work on range of motion exercises as provided by Physical Therapy. - Start outpatient physical therapy within 2 weeks. - You should wear the CANDI hose on both legs for 2 weeks. You may remove these at night. You may also use any compression sock in place of the CANDI hose. - Utilize [employer] to review exercises, see videos on exercises and obtain basic information pertaining to your surgery and your recovery. Dressing: Remove the Theodore wrap by 2 days after your surgery and put on the CANDI stocking given to you from the hospital. Keep the surgical dressing (underneath the THEODORE wrap) in place for at least one week. After the first week it may be removed and replaced with light gauze and tape or nothing. The wound and dressing may get wet after 3 days but avoid soaking the dressing or otherwise it will need to be changed. Many people prefer covering the dressing with cling wrap (saran wrap) to minimize it from getting soaked. If it gets wet, just pat dry. If it starts to peel off then it will need to be changed. Medications: - You should take Tylenol and anti-inflammatory Celebrex as your primary pain control medications. If the Celebrex is too expensive or not covered, please call the office for another alternative (Advil/Ibuprofen or Naproxen/Aleve) - You have been prescribed a stronger pain medication Oxycodone for breakthrough pain, take as needed as prescribed. - You will continue Pantoprozole to help reduce stomach acid and reflux. - You will continue your pregabalin restlessness and nerve pain. - You will be taking Aspirin 81mg twice a day for DVT prevention unless instructed otherwise. - You have also been prescribed Decadron to take to control post-operative nausea and pain. You will start this tomorrow. - If you have constipation you should take Colace or Miralax (both [id number]). It takes most people 3-4 days to have a bowel movement. Follow-up: 2 weeks If you have any acute concerns or questions, please do not hesitate to contact the office at [phone]. You may contact Dr. Flores with any questions after hours through the hospital at [phone] or on his cell phone at [phone]. Referrals: Bebo Flores MD [ [facility] STAFF PHYSICIAN] - Equipment/Supplies: Walker Activity:: Activity as Tolerated Shower/Bathe:: 72 hours Diet:: As Tolerated Discharge Orders Discharge Orders: Discharge Order (Routine); Ordered 03/15/25 Ordered By: Noe Jo DS: Diagnosis Discharge Diagnosis (1) Bilateral primary osteoarthritis of knee: Status: Chronic
[2025-03-15] MEDS: ceFAZolin 2 GM/50 ML BAG IVPB (08:00)
[2025-03-15] MEDS: TRANEXAMIC ACID/SOD. CHL. 1,000 MG/100 ML BAG 600 MG IVPB ×2 (08:02→09:12)
--- NOTE | 2025-03-15 08:45 | ANES.NERVE_ITS ---
Nerve Block Single Injection Procedure Date and Time Date Performed: 03/15/25 Procedure Start: 07:25 Location Where Procedure Performed Procedure Location: Day Surgery Unit Reason Performed: Postoperative Analgesia Requesting Provider: Bebo Flores Timeout Performed Timeout Performed: Yes Monitoring Used ECG, Blood Pressure, SpO2 and See EMR for corresponding vital signs Sterility Sterility: Hand Hygiene, Surgical Cap, Surgical Mask, Sterile Gloves, Eye Protection and Chlorhexidine Sedation Given During Procedure Sedation Given (Indicate Dose Given): Versed IV Dose:: 2 mg Patient Mental Status Patient Mental Status: Sedate with meaningful communication Nerve Block 1st Nerve Block: Laterality: Bilateral Block Type: Other (Bilateral Geniculars/Fascial Plane Block) Ultrasound Image Saved?: Yes Needle / Catheter Used: 100mm SonoPlex II Local Anesthetic Bolus (Indicate Dose Given): Lidocaine used for local infiltration of skin, Injected in 3-5ml increments after negative blood aspiration, Half of Total block solution given into each side, Bupivacaine 0.25% Dose:: 5 ml and Exparel Dose:: 5 ml Additives (Indicate Dose Given): None Ultrasound: Sterile probe cover and gel used Nerve Stimulator: Supplement to Ultrasound use and No twitch or parasth esia noted < 0.5 mA Paresthesia: None Procedure Tolerated: No Complications and Patient tolerated well Procedure Outcome: Successful Procedure Comment: Bilateral Adductor Canal identified with ultrasound. Noted to have significant bilateral abberant blood vessels surrounding the nerve despite scanning proximal to distal. Determined no safe window for local anesthetic placement. Discussed with Dr. Flores. Plan for bilateral geniculars/fascial plane blocks. Performed By: Min Carmen Supervised By: Cassie Spring
--- NOTE | 2025-03-15 10:12 | W.PM.OP ---
Operative Note Operative Note PRE-OP DIAGNOSIS: Bilateral Knee Arthritis POST-OP DIAGNOSIS: same PROCEDURE: Bilateral Knee Arthroplasty SURGEON: Bebo Flores GUEST SERVICES DIRECTOR: Cintia Jo ANESTHESIA TYPE: Spinal Refer to Anesthesia Record ESTIMATED BLOOD LOSS: 200 PATHOLOGY: none sent COMPLICATIONS: None Patient was transported to: PACU Patient's condition: stable Implants: LEFT: 1. Depuy Attune Cementless Cruciate Retaining Femoral Component, Size 8 2. Depuy Attune Cementless Fixed Bearing Tibial Component, Size 7 3. Depuy Attune 8x6 CR/FB Poly 4. Depuy Attune Patellar Component, Size 41 RIGHT: 1. Depuy Attune Cementless Cruciate Retaining Femoral Component, Size 8 2. Depuy Attune Cementless Fixed Bearing Tibial Component, Size 7 3. Depuy Attune 8x8 CR/FB Poly 4. Depuy Attune Patellar Component, Size 41 Indications: I have seen Johan in clinic for symptoms of knee arthritis, confirmed with radiographic findings. He has exhausted nonoperative methods and was having significant limitations in daily function and desired better function and less pain. I discussed the technical details of a knee replacement. I explained the risks of the procedure to include, but not limited to, bleeding, infection, pain, stiffness, fracture, damage to nerves and vessels, damage to muscles and tendons, loosening, need for repeat procedure, blood clot and cardiopulmonary demise. Despite these risks, Johan elected to proceed. Findings: There was significant arthritis throughout both knees. Procedure Description: Johan was greeted in the preoperative holding area where the correct side was identified and marked. The consent was reviewed with the patient and signed. The history and physical was updated. All questions were answered. Preoperative medications were administered: Acetaminophen 1000mg, Celebrex 400mg, and Gabapentin 300mg. An adductor canal block was then administered by the anesthesia team in the [facility]. Johan was taken back to the operating room. A spinal anesthestic was then administered. The patient was placed into the supine position on the operating room table. A nonsterile tourniquet was placed high onto the leg but only used for cementing. Posts were placed for positioning during the procedure. All bony prominences were well padded. Prophylactic antibiotics in the form of Cefazolin were administered. 1g of Tranxemic Acid was given intravenously within 30 minutes of incision. Both legs were then prepped with Chloraprep and draped in a standard fashion with impervious stockinette. A second prep with Chloraprep was performed prior to application of Iodine impregnated skin protection. A timeout to confirm correct identity, side and site, procedure, allergies, anesthesia, and medical concerns was performed. LEFT KNEE: With the knee in some flexion, a midline incision was made overlying the knee. Full thickness skin flaps were raised once the extensor mechanism was encountered. These were raised medially and laterally. Any bleeding was controlled with electrocautery. Once the extensor mechanism was fully exposed, a medial parapatellar arthrotomy was performed in a flexed position. All bleeding from the arthrotomy and the geniculate arteries was coagulated. A medial subperiosteal peel was performed with electrocautery to the midcoronal plane. Due to the significant varus deformity the entire medial tibial plateau was exposed. The fat pad was removed while keeping the patellar tendon protected. The anterior distal femur synovium was removed for later visualization. The ACL and PCL were resected and the anterior horn of the lateral meniscus was transected. The knee was then flexed with the patella everted. The patella had a significant defect centrally with surrounding osteophytes. Large osteophytes from the tibia were removed. Large osteophytes from the femur were removed. Using a step drill, and based on preoperative templating, the femoral canal was entered. This was done with a step drill without any difficulty. The intramedullary distal femoral cut guide was inserted, set to a 6 degree valgus cut and 9mm cut thickness. The distal femoral cut guide was then held in position and pinned. With the soft tissues protected, the distal cut was performed. This was passed over a few times to ensure a planar cut. I then turned attention to the tibia. The extramedullary guide was placed onto the leg. The distal aspect was slid medial to adjust for position of center of ankle and stay in line with shaft of the tibia. Approximately 3-5 degrees of posterior slope was kept in the proximal cutting guide. The center of the guide was aligned with the PCL. The stylus was used to assess cut thickness. The medial side, most involved side, was set for a 4mm cut. This was then held in position and pinned into place with 2 additional pins and a cross pin for stability. The medial and lateral collateral ligaments were protected and the cut was performed. With this completed, it was assessed and noted to be of appropriate dimensions. The guide was removed. A spacer block was inserted and the knee was brought into extension. The 6mm spacer block provided full extension, without hyperextension and with stability of both the medial and lateral collateral ligaments was assessed. The pins from the femur and the tibia were then removed. The distal femur was then sized. The anterior stylus was placed onto the lateral ridge of the anterior femur. This indicated a size 8 femur. The external rotation of the guide was adjusted to 3 degrees to match the epicondylar axis, perpendicular to [place]?s line. The 4-in-1 cutting guide was the placed. The posterior medial femur cut was evaluated and appeared of good thickness. The spacer block was inserted underneath the cutting guide and stability was confirmed in 90 degrees of flexion. An lorena wing was used to confirm appropriate position of the anterior cut to avoid notching. This cutting guide was ensured to be flush on the cut surface and then pinned into place with headed pins. While protecting the soft tissues, quad tendon, and collateral ligaments, the anterior and posterior cuts were performed with a saw. The central two pins were removed and the posterior and anterior chamfers were cut next. The notch-cutting guide was placed. This was pinned to lateralize the femoral component as much as possible while keeping it flush on the cut surface. This was then pinned into position. A reciprocating saw was used to make the notch cut. A rasp smoothed the cut surfaces. The medial and lateral menisci were removed. A trial femoral component was then inserted, impacted down to the cut surfaces, and the lug holes were drilled. A provisional trial tibial component was placed and the knee was brought through range of motion. There was noted to be excellent extension and flexion. There was no significant instability. The patella was tracking without thumbs. A size 6mm polyethylene component provided the best range of motion and stability with less than 2mm gapping with medial and lateral stress and full extension without significant hyperextension. The tibial cut surface was fully exposed. The tibia was then sized as a 7. The tibia had been previously marked during trialing to correspond to the center of the tibial component to help with rotation. The trial was aligned to this cintia, approximately rotated to the medial 1/3rd of the tibial tubercle. The trial was pinned into place. The tibia was prepared with a reamer and a keel punch and lug holes. The knee was then brought into extension and the patella was measured as 27mm. Using the patellar clamp and cut guide, this was resected to a flat surface with at least 13mm of thickness remaining. The size 41mm patella fit the best. This was oriented and then clamped into position. The lugs were drilled. The trial components were removed. The final components were opened on the back table. The periosteal and capsular tissues, especially posteriorly, around the knee were then systematically injected with a periarticular cocktail consisting of 246mg of Ropivacaine, 0.5mg of Epinephrine, 0.08mg of Clonidine, and 30mg of Ketorolac, diluted to 100cc. On the back table, with the implants opened, the cement was mixed. One batch of high viscosity cement was prepared with vacuum assistance. After the cement was ready a small amount was placed on the cut surface of the patella and the patellar button was clamped into position and held. While the cement was hardening, the cementless knee components were placed. Starting with the tibial component, the tibia was subluxed anteriorly and the lug holes of the component were lined up. The tibia was then impacted with an impactor and mallet until the tibial component was in contact with the tibia. Then, the femoral component was inserted. The lug holes were aligned and the component was impacted into position. The final polyethylene component was inserted. The knee was irrigated with Surgiphor Betadine solution. This was allowed to sit in the knee for 3 minutes and then it was irrigated out with saline. After the cement had finally cured, approximately 15min, the clamp was removed from the patella and the knee was taken through range of motion. The patella was tracking with a no-thumbs technique. The capsule was then reapproximated with a No. 1 Vicryl at multiple locations. The capsule was finally closed with a No. 2 Stratafix, barbed suture. The second dosing of 1g TXA was started. Deep tissues were then reapproximated with 0 Vicryl and 2-0 Vicryl. The skin was closed with a running 3-0 Monocryl in a subcuticular fashion. RIGHT KNEE: Attention was then turned to the right knee. With the knee in some flexion, a midline incision was made overlying the knee. Full thickness skin flaps were raised once the extensor mechanism was encountered. These were raised medially and laterally. Any bleeding was controlled with electrocautery. Once the extensor mechanism was fully exposed, a medial parapatellar arthrotomy was performed in a flexed position. All bleeding from the arthrotomy and the geniculate arteries was coagulated. A medial subperiosteal peel was performed with electrocautery to the midcoronal plane. Due to the significant varus deformity the entire medial tibial plateau was exposed. The fat pad was removed while keeping the patellar tendon protected. The anterior distal femur synovium was removed for later visualization. The ACL and PCL were resected and the anterior horn of the lateral meniscus was transected. The knee was then flexed with the patella everted. Large osteophytes from the tibia were removed. Large osteophytes from the femur were removed. Using a step drill, and based on preoperative templating, the femoral canal was entered. This was done with a step drill without any difficulty. The intramedullary distal femoral cut guide was inserted, set to a 6 degree valgus cut and 9mm cut thickness. The distal femoral cut guide was then held in position and pinned. With the soft tissues protected, the distal cut was performed. This was passed over a few times to ensure a planar cut. I then turned attention to the tibia. The extramedullary guide was placed onto the leg. The distal aspect was slid medial to adjust for position of center of ankle and stay in line with shaft of the tibia. Approximately 3-5 degrees of posterior slope was kept in the proximal cutting guide. The center of the guide was aligned with the PCL. The stylus was used to assess cut thickness. The medial side, most involved side, was set for a 4mm cut. This was then held in position and pinned into place with 2 additional pins and a cross pin for stability. The medial and lateral collateral ligaments were protected and the cut was performed. With this completed, it was assessed and noted to be of appropriate dimensions. The guide was removed. A spacer block was inserted and the knee was brought into extension. The 7mm spacer block provided full extension, without hyperextension and with stability of both the medial and lateral collateral ligaments was assessed. The pins from the femur and the tibia were then removed. The distal femur was then sized. The anterior stylus was placed onto the lateral ridge of the anterior femur. This indicated a size 8 femur. The external rotation of the guide was adjusted to 0 degrees to match the epicondylar axis, perpendicular to [place]?s line. The 4-in-1 cutting guide was the placed. The posterior medial femur cut was evaluated and appeared of good thickness. The spacer block was inserted underneath the cutting guide and stability was confirmed in 90 degrees of flexion. An lorena wing was used to confirm appropriate position of the anterior cut to avoid notching. This cutting guide was ensured to be flush on the cut surface and then pinned into place with headed pins. While protecting the soft tissues, quad tendon, and collateral ligaments, the anterior and posterior cuts were performed with a saw. The central two pins were removed and the posterior and anterior chamfers were cut next. The notch-cutting guide was placed. This was pinned to lateralize the femoral component as much as possible while keeping it flush on the cut surface. This was then pinned into position. A reciprocating saw was used to make the notch cut. A rasp smoothed the cut surfaces. The medial and lateral menisci were removed. A trial femoral component was then inserted, impacted down to the cut surfaces, and the lug holes were drilled. A provisional trial tibial component was placed and the knee was brought through range of motion. The polyethylene was trialed until there was good flexion and extension with excellent stability to the medial and lateral collaterals. The patella was tracking without thumbs. A size 8mm polyethylene component provided the best range of motion and stability with less than 2mm gapping with medial and lateral stress and full extension without significant hyperextension. The tibial cut surface was fully exposed. The tibia was then sized as a 7. The tibia had been previously marked during trialing to correspond to the center of the tibial component to help with rotation. The trial was aligned to this cintia, approximately rotated to the medial 1/3rd of the tibial tubercle. The trial was pinned into place. The tibia was prepared with a reamer and a keel punch and lug holes. The knee was then brought into extension and the patella was measured as 26mm. Using the patellar clamp and cut guide, this was resected to a flat surface with at least 13mm of thickness remaining. The size 41 patella fit the best. This was oriented and then clamped into position. The lugs were drilled. The trial components were removed. The final components were opened on the back table. The periosteal and capsular tissues, especially posteriorly, around the knee were then systematically injected with a periarticular cocktail consisting of 246mg of Ropivacaine, 0.5mg of Epinephrine, 0.08mg of Clonidine, and 30mg of Ketorolac, diluted to 100cc. On the back table, with the implants opened, the cement was mixed. One batch of high viscosity cement was prepared with vacuum assistance. After the cement was ready a small amount was placed on the cut surface of the patella and the patellar button was clamped into position and held. While the cement was hardening, the cementless knee components were placed. Starting with the tibial component, the tibia was subluxed anteriorly and the lug holes of the component were lined up. The tibia was then impacted with an impactor and mallet until the tibial component was in contact with the tibia. Then, the femoral component was inserted. The lug holes were aligned and the component was impacted into position. The final polyethylene component was inserted. The knee was irrigated with Surgiphor Betadine solution. This was allowed to sit in the knee for 3 minutes and then it was irrigated out with saline. After the cement had finally cured, approximately 15min, the clamp was removed from the patella and the knee was taken through range of motion. The patella was tracking with a no-thumbs technique. The capsule was then reapproximated with a No. 1 Vicryl at multiple locations. The capsule was finally closed with a No. 2 Stratafix, barbed suture. Deep tissues were then reapproximated with 0 Vicryl and 2-0 Vicryl. The skin was closed with a running 3-0 Monocryl in a subcuticular fashion. Both incisions were then reinforced with skin glue. A Mepilex silver dressing was applied along with a [id number] HUSSEIN wrap to both knees. A CryoCuff was applied. Johan was transferred to the hospital bed without difficulty an suffering no apparent complication. Johan has a good prognosis. Physical therapy will start today and without restrictions, weight-bearing as tolerated. Aspirin 81mg BID will be used for DVT prophylaxis. Date of Procedure: 03/15/25
[2025-03-15] MEDS: fentaNYL 100 MCG/2 ML VIAL IVP ×5 (10:59→14:53)
[2025-03-15] MEDS: oxyCODONE 5 MG TAB PO (12:31)
--- NOTE | 2025-03-15 12:58 | W.ANESPOSTOP ---
Postoperative Evaluation Date, Time and Location Date Performed: 03/15/25 Time Performed: 12:59 Patient Location: Day Surgery Unit Vital Signs Most Recent Imported Vital Signs: Most Recent Vital Signs Temp Pulse Resp BP Pulse Ox 36.6 C 55 L 9 L 133/80 95 03/15/25 12:06 03/15/25 12:06 03/15/25 12:06 03/15/25 12:06 03/15/25 12:06 Pain Score Most Recent Pain Score: Most Recent Pain Score Pain Level 6 03/15/25 11:58 Assessment Mental Status: Awake (Alert & Oriented to Patient Baseline) Airway and Respiratory Function: Patent airway with normal (patient baseline) respiratory exam Cardiovascular Function: Hemodynamically Stable Hydration Status: Adequately Hydrated Nausea & Vomiting: No Nausea or Vomiting Pain: Pain is Moderate or Severe Postoperative Pain Management: Pain being addressed with medication Peripheral Nerve Block: Regional nerve block not resolved at time of post operative discharge
[2025-03-15] MEDS: Droperidol 5 MG/2 ML VIAL 0.625 MG IVP (14:52)
[2025-03-15] MEDS: Normal Saline Flush 10 ML SYR IV (14:53)
--- NOTE | 2025-03-15 15:39 | IN_ITS ---
PT Notes Visit Reasons: B/L TKR Physical Therapy Day Surgery Initial Evaluation Date: 03/15/2025 Referring Doctor: Dr. Flores/TIANA Rhodes PT Orders: PT CONSULT: Status post Ortho surgery Precautions: WBAT BLE Patient Profile/Admitting Diagnosis: Patient is 70-year-old male presenting status post elective bilateral TKA under spinal anesthesia without nerve block. Postop complicated by pain and urinary retention. PMHX: Asymmetrical sensorineural hearing loss (Acute) Conductive hearing loss, external ear (Acute) Laceration of left thumb (Acute) s/p I&D DOS: 12/09/24Open fracture of distal phalanx of left ring finger with mallet deformity (Acute) s/p I&D as well as open reduction and pinning of distal phalanx DOS: 12/09/24Bilateral primary osteoarthritis of knee (Chronic) Hearing loss in left ear (Acute) Cerumen impaction (Acute) Impacted cerumen, left ear (Acute) Tubular adenoma (Acute ~03/20/23) Serrated adenoma of colon (Acute) Diverticula of colon (Acute) pandiverticulaBile reflux esophagitis (Acute) History of ETOH abuse (Acute) Microcytic anemia (Acute) Liver nodule (Acute) Hypomagnesemia (Acute) Acid reflux (Chronic) Abdominal pain (Acute) Acute pancreatitis (Acute) Thyroid nodule (Acute) Lumbar post-laminectomy syndrome (Acute) Medical History Alcohol intake above recommended sensible limits with complication Diverticulosis Insomnia Lipid disorder Dermatitis Actinic keratosis Depressive disorder Spinal stenosis Knee pain 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 Benign prostatic hyperplasia Granuloma annulare Former smoker Decreased hearing of left ear Shoulder lesion, unspecified, right shoulder Allergic to IV contrast Muscle spasms of neck Lumbar radiculopathy Stomach ulcer Cervicalgia Sleep disturbance Epididymal mass Barretts esophagus (~03/20/23) Nodule of right lobe of thyroid gland Squamous cell carcinoma in situ of skin History of adenomatous polyp of colon Adenocarcinoma of duodenum Peripheral neuropathy Shoulder pain, bilateral Ventral incisional hernia without obstruction or gangrene Encounter for medication monitoring Anxiety disorder Bilateral cataracts Melanoma Right leg pain Skin disease Cancer Difficulty sleeping Basal cell carcinoma Arthritis Spondylolisthesis Lumbosacral spinal stenosis Lumbosacral radiculopathy 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 Patient had been independent with ambulation ADLs prior. 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 Equipment Owned/DME: Cane Subjective: Patient reports his legs are much straighter now after surgery Objective: [] General Observation: Male semireclined on stretcher. Patient had just removed Cryo/Cuff's due to legs being too cold. present Mental Status: Alert and oriented x 4, cooperative, pleasant able to follow instructions, agreeable to participate in eval Pain: Supine pain bilateral knees 5/10 increased to 8/10 with heel slides to 6 with rest. Pain increased to 9?10/10 with ambulation reduced to 7/10 with sit rest. Patient nurse Rema aware of increase in pain . aware. Patient returned to chair stair assessment to be completed after further pain management obtained. ROM: [] Right Upper Extremity: WNL Left Upper Extremity: WNL Right Lower Extremity: Hip and ankle within normal limits knee 0 to 95 degrees Left Lower Extremity: Knee 5 to 90 degrees hip and ankle within normal limits Strength: [] Right Upper Extremity: 5/5 Left Upper Extremity: 5/5 Right Lower Extremity: Hip flexion: 3 -/5; hip abduction: 3 -/5; hip extension: 3 -/5; knee extension: 3 /5; knee flexion: 2+/5 ankle DF: 3/5 ; ankle PF: 3/5; strong quad set without compensation; straight leg raise without lag in shortened range Left Lower Extremity: Hip flexion: 3 -/5; hip abduction: 3 -/5; hip extension: 3 -/5; knee extension: 3/5; knee flexion: 2+/5 ankle DF: 3/5 ; ankle PF: 3/5; demonstrates quad set without compensation; straight leg raise with lag noted and patient report pain at distal quad Sensation: Intact Bed Mobility/Transfers: [] Supine to sit CGA for BLE Sit to supine min assist for BLE Sit to stand CGA with cues for hand placement Stand to sit CGA with excessive use of upper extremities to lower down to surface Bed to chair CGA with FWW Gait: Ambulated 20 feet x 2 with FWW contact-guard assist demonstrating reduced step length bilaterally diminished knee flexion bilaterally excessive weightbearing through bilateral upper extremities. Balance: [] Static Sitting: Normal Dynamic Sitting: Fair Static Standing: Fair with bilateral upper extremity support Dynamic Standing: Fair with bilateral upper extremity support Special Tests: [] Mobility Limitations Standardized Measure [] [facility] 6 clicks Basic Mobility Inpatient Short Form: [] Raw Score: 16 CMS Score: 54.16% Informed Consent/Education: Patient instructed in purpose of PT consult. Treatment: 74956 packet containing TKA exercise protocol has been given to patient. Education and training on initial set of exercises that can be done at home have been completed with patient in sitting and supine. Patient also educated to perform hip external rotation left lower extremity. Assessment: Patient demonstrates increased -[facility] 6 clicks basic mobility inpatient Short form score of 16 indicating increased risk for falls at this time. Patient's level of pain significantly impacting his ability to perform functional tasks at this time further assessment of gait and stairs to be completed during treatment session after pain level reduces. MD anticipate pain management to be obtained and inpatient hospitalization not required. Patient is a 70-year-old male who presents with clinical signs and symptoms consistent with current/admitting diagnoses that have resulted to mobility limitations, gait instability, generalized weakness, and impairment of motor control as demonstrated by the following impairment level findings: 1. Decreased strength to B knee major muscle groups 2. Impaired standing balance 3. Limitation of joint range of motion in B knee 4. Impaired functional activity tolerance 5. Pain bilateral knees Impairments are contributing to the following functional limitations: 1. Inability to safely ambulate without assistive device 2. Increase completion time for mobility ADL performance 3. Increased fall risk 4. Decline in transfer skills 5. Decline in bed mobility skills 6. Difficulty performing stairs without assistance safely Patient is assessed as a moderate complexity based on the following: History: 70-year-old male with impairment level findings, functional limitations, and past medical history as indicated above Examination: Demonstrable impairment in strength, balance, and mobility level with underlying impairments and functional limitations as documented above Presentation: Evolving Decision Making: [] Moderate Goals: N/A. PT evaluation and 1-2 treatment sessions only for functional mobility training using recommended AD and for HEP instruction. Plan of Care/Treatment Plan: N/A. PT evaluation and 1-2 treatment session only for functional mobility training using recommended AD and for HEP instruction. DISCHARGE RECOMMENDATIONS: Home with outpatient PT as scheduled TREATMENT CODE/TIME: 44401, 44632/1410?1500 Thank you for the opportunity to participate in the care of this patient. Alexa Quinones, PT [facility]
--- NOTE | 2025-03-15 16:13 | PT.INTREAT ---
PT Notes Visit Reasons: B/L TKR Inpatient Physical Therapy Treatment Note [facility] Date: 03/15/2025 PRECAUTIONS: WBAT through B LE with AD. SUBJECTIVE: Agreeable to trying mobility performance using walker fitted on him. OBJECTIVE: HUSSEIN wraps to B LE. was present in room when PT came in. Somewhat anxious at the start and asked if he could have another pain pill before the walk but Nurse Hodgson clarified that he just had a pain medication within the hour of PT coming back to see him ? PAIN: 5-6/10 at rest that subsided a bit with walking VITALS: WNL as closely monitored by Nurse Hodgson ? TRANSFERS:? Minimal cueing provided for use of B hands as needed for support, movement sequence, AD management, and posture to reduce fall risk and minimize pain report ? Sit-stand: stand by assist with FWW? Stand-sit: stand by assist with FWW? Bed-Chair: stand by assist with FWW? Chair-bed: stand by assist with FWW? GAIT? Assistive Device: FWW? Weight bearing: WBAT through B LE Assist: stand by assist ? Distance:? 150 feet ? Deviation: Decreased terminal knee extension ? STAIRS: Guided patient with safe negotiation of 3 x 4-inch steps and 2 x 6-inchs steps while holding onto L rail and and using a SPC on the other side with moderate verbal cueing for limb movement sequence and increased knee flexion on each ascent. ? ASSESSMENT:? Cleared patient for discharge to home with use of FWW. PLAN: D/C to home with FWW. TREATMENT CODE/TIME: 15695 x 25 minutes for 2 units (16:13-16:38). DISCHARGE RECOMMENDATION: Home with OP PT in 2 weeks per orthopedic protocol. Continue with HEP for post op TKA protocol.
== END 2025-03-15 17:00 | disposition home or self-care (01) ==
PROVIDERS: PCP Family Medicine; Visit Provider Student in an Organized Health Care Education/Training Program
PROC: 0SRC0JZ Replacement of Right Knee Joint with Synthetic Substitute, Open Approach (ICD-10-PCS; CPT 27447; principal; 2025-03-15 07:30)
DX: M17.0 Bilateral primary osteoarthritis of knee (principal); G89.18 Other acute postprocedural pain
CPT/HCPCS: 27447; 64454; 97110; 97162; 97530; C1776; J0665; J0666; J0690; J1100; J1596; J1790; J2003; J2250; J2371; J2405; J2704; J3010

== ENCOUNTER 2025-03-30 10:18 | Outpatient (CLI) | payer MEDICARE, SELFPAY ==
--- NOTE | 2025-03-30 09:45 | DI.RAD_ITS ---
Exam(s) XR KNEE LT 1V XR STANDING ALIGNMENT XR KNEE RT 1V EXAM: XR STANDING ALIGNMENT CLINICAL HISTORY: 1ST POST OP S/P BILAT TKAs. TECHNIQUE: 2D digital imaging was performed. Six images were obtained. COMPARISON: CR XR KNEE 4 VIEW RIGHT from 11/27/2022 CR XR KNEE 4 VIEW RIGHT from 03/08/2024 CR XR KNEE STANDING ALIGNMENT AP LAT [place] SKYLINE BILAT from 07/07/2024 FINDINGS: Surgical changes are seen in the lumbosacral spine on the right. Portions of the right hip were obsc ured by external artifact. BONES: The hips are well maintained. The patient has bilateral total knee arthroplasties. The ortho pedic hardware appears in good position. No suspicious lucencies are seen in or around the orthopedi c hardware.. The ankles are well maintained.There is no significant leg length discrepancy. SOFT TISSUE: Atherosclerotic calcification is present. IMPRESSION: Bilateral total knee arthroplasties. DATA REPOSITORY: RADIATION DOSE DELIVERED:
== END 2025-03-30 10:19 | disposition home or self-care (01) ==
LOC: DIORS 10:18
PROVIDERS: PCP Family Medicine; Referring Provider Family Medicine; Visit Provider Student in an Organized Health Care Education/Training Program
DX: Z96.653 Presence of artificial knee joint, bilateral (principal); Z47.1 Aftercare following joint replacement surgery
CPT/HCPCS: 99024; 73560; 77073

== ENCOUNTER 2025-04-11 01:24 | Outpatient (CLI) | payer MEDICARE, SELFPAY ==
--- NOTE | 2025-04-11 | DI.MRI_ITS ---
Exam(s) MR BRAIN WO EXAM: MR BRAIN WO CLINICAL HISTORY: Family h/o brain aneurysm, Z82.49-family h/o ischemic heart disease and TECHNIQUE: Multiplanar multisequence MRI of the brain was performed. COMPARISON: There are no priors for comparison. FINDINGS: VENTRICLES AND EXTRA AXIAL SPACES: Normal in size and morphology for the patient's age. MIDLINE SHIFT: None. CEREBRAL PARENCHYMA: No focus of restricted diffusion to suggest acute infarct. No space-occupying lesion identified. There are few foci of hyperintense signal seen in the white matter on the FLAIR and T2 weighted images likely reflecting chronic microvascular ischemic disease. HEMORRHAGE: None. BRAINSTEM/CEREBELLUM: Normal. CALVARIUM: Normal. VISUALIZED PARANASAL SINUSES/MASTOIDS:Clear. [place] BECKER: Normal flow void. PITUITARY GLAND: Unremarkable. OTHER FINDINGS: None. IMPRESSION: 1. Age-appropriate chronic microvascular ischemic disease. 2. No evidence of an acute infarct. DATA REPOSITORY:
== END 2025-04-11 01:44 ==
LOC: DI 01:24
PROVIDERS: PCP Family Medicine; Visit Provider Family Medicine
DX: Z13.6 Encounter for screening for cardiovascular disorders (principal); Z82.49 Family history of ischemic heart disease and other diseases of the circulatory system; I67.82 Cerebral ischemia
CPT/HCPCS: 70551

== ENCOUNTER 2025-05-01 03:43 | Outpatient (CLI) | payer MEDICARE, SELFPAY ==
[2025-05-01 13:25] LABS: Hemoglobin A1C 4.8 % (<5.7)
[2025-05-01 14:11] LABS: TSH (W/Ref FT4) 0.76 uIU/mL (0.36-3.74); Vitamin B12 377 pg/mL (193-986)
[2025-05-01 23:18] LABS: PSA, Screening 4.1 ng/mL (<=6.5)
[2025-05-04 17:55] LABS: Total Protein 7.7 g/dL (6.3-8.2)
[2025-05-05 13:35] LABS: Albumin 57.3 % (55.8-66.1); Albumin g/dL 4.4 g/dL (3.6-5.2); Alpha 1 g/dL 0.30 g/dL (0.15-0.40); Alpha 2 g/dL 0.60 g/dL (0.50-1.00); Beta g/dL 1.00 g/dL (0.60-1.20); Gamma g/dL 1.30 g/dL (0.60-1.60)
== END 2025-05-01 03:44 | disposition home or self-care (01) ==
LOC: LBO 03:43
PROVIDERS: PCP Family Medicine; Visit Provider Family Medicine
DX: Z13.1 Encounter for screening for diabetes mellitus (principal); F41.9 Anxiety disorder, unspecified; N40.0 Benign prostatic hyperplasia without lower urinary tract symptoms; Z96.653 Presence of artificial knee joint, bilateral
CPT/HCPCS: 36415; 84153; 82607; 83036; 84165; 84443

== ENCOUNTER → 2025-06-12 09:12 | Outpatient (BNVA) | payer MEDICARE, SELFPAY | PROVIDERS: PCP Family Medicine; Referring Provider Family Medicine; Visit Provider Physician Assistant | DX: Z47.1 Aftercare following joint replacement surgery (principal); Z96.653 Presence of artificial knee joint, bilateral | CPT/HCPCS: 99024 ==

== ENCOUNTER → 2025-09-13 09:35 | Outpatient (CLI) | payer MEDICARE, SELFPAY ==
--- NOTE | 2025-09-13 09:30 | DI.RAD_ITS ---
Exam(s) XR LUMBAR SPINE COMPLETE EXAM: XR LUMBAR SPINE COMPLETE CLINICAL HISTORY: low back pain/sciatica/postlaminecomy/M96.1,M54.50, M54.30. TECHNIQUE: 2D digital imaging was performed. COMPARISON: No exams were available for comparison FINDINGS: Five views Again noted is posterior fusion hardware at L4-5-S1- U8fmesct The relationship of the intrapedicular screws at L4 and L5 levels relative to the superior endplates appears satisfactory. There is an intervertebral disc space device at L5-S1 level, right of center the amount of anterolisthesis of L5 relative to S1 appears stable.. The posterior aspect of this device extends slightly posterior to the posterior cortex of L5. Chronic disc space narrowing at this level is again noted as at all other levels in the lumbar spine. There is no evidence of hardware loosening nor migration. No evidence of osteomyelitis. IMPRESSION: Posterior fusion hardware and multilevel chronic degenerative disc disease. Possible concern is the fact that on the lateral view the intervertebral disc space device at L5-S1 level appears to be projecting slightly posterior to the posterior cortex of L5 vertebral body on the coned-down lateral view. This may be clinically significant. Recommend further imaging if clinically indicated. DATA REPOSITORY: RADIATION DOSE DELIVERED:
== END ==
LOC: DI 09:35
PROVIDERS: PCP Family Medicine; Visit Provider Anesthesiology Pain Medicine
DX: M96.1 Postlaminectomy syndrome, not elsewhere classified (principal); M51.372 Other intervertebral disc degeneration, lumbosacral region with discogenic back pain and lower extremity pain
CPT/HCPCS: 72110

== ENCOUNTER → 2025-10-10 00:18 | Outpatient (CLI) | payer MEDICARE, SELFPAY ==
--- NOTE | 2025-10-10 07:30 | DI.MRI_ITS ---
Exam(s) MR LUMBAR SPINE WO EXAM: MR LUMBAR SPINE WO CLINICAL HISTORY: pain,lumbar post laminectomy syndrome,lumbar radiculitis,lumbar stenosis. TECHNIQUE: Multiplanar multisequence MRI of the Lumbar spine was performed. MR MRI LUMBAR SPINE W/WO CONTRAST from 07/08/2022 CR XR LUMBAR SPINE COMPLETE from 09/13/2025 FINDINGS: Bones: The last intervertebral disc space is designated the L5/S1 level for the numbering purpose of this examination. The vertebral body heights are well maintained. There is straightening of the normal lordosis. There is grade 1 anterolisthesis of L5 on S1. There is retrolisthesis of L3 on L4. There is again seen at L4 and L5 laminectomy and posterior spinal fusion of the lumbosacral spine from L4 through S2. Degenerative endplate signal changes are present throughout the lumbar spine. Cord: It is of normal size and signal intensity. T12-L1: No disc herniations or bulges are present. No central spinal canal or neural foraminal stenosis. L1-2: There is mild prominence of the osteophytes and disc at this level. There is mild narrowing of the central spinal canal. There is mild narrowing of the left neural foramen. No significant right neural foraminal stenosis is seen. L2-3: No disc herniations or bulges are present. There is no significant central spinal canal stenosis.There is mild neural foraminal stenosis, left greater than right. Degenerative changes of the facets are noted. L3-4: No disc herniations or bulges are present. There is no significant central spinal canal stenosis.No significant neural foraminal stenosis is present. Imaging is limited in this area due to artifact from the patient's posterior spinal surgery. L4-5: No disc herniations or bulges are present. Neural foraminal valuation is limited secondary to artifact from the patient's posterior spinal surgery, but no significant neural foraminal stenosis is seen. There is no significant central spinal canal stenosis. L5-S1: There is a mild diffuse disc bulge. It extends into the neural foramen particularly on the right. Neural foraminal valuation is limited due to artifact from the patient's posterior spinal surgery.There does however appear to be bilateral neural foraminal narrowing, right greater than left. No significant central spinal canal stenosis is seen. Soft tissues: The visualized SI joints and sacrum are well maintained. The paraspinal soft tissues are unremarkable. Visualized abdominal organs: Bilateral simple renal cysts are present. No follow-up is recommended. IMPRESSION: 1. Multilevel degenerative changes in the lumbar spine. There is narrowing of the neural foramen at L2-3 bilaterally, left greater than right. There is also mild left L1-L2 neural foraminal stenosis. 2. Postsurgical changes with L4 and L5 laminectomy and posterior spinal fusion from L4 through S2. DATA REPOSITORY:
== END ==
LOC: DI 00:18
PROVIDERS: PCP Family Medicine; Visit Provider Anesthesiology Pain Medicine
DX: M96.1 Postlaminectomy syndrome, not elsewhere classified (principal); M48.062 Spinal stenosis, lumbar region with neurogenic claudication; M54.16 Radiculopathy, lumbar region
CPT/HCPCS: 72148

== ENCOUNTER 2025-10-24 09:42 | Outpatient (CLI) | payer MEDICARE, SELFPAY ==
--- NOTE | 2025-10-24 06:00 | DI.RAD_ITS ---
Exam(s) XR PAIN CLINIC LUMBAR SP 2V EXAM: XR PAIN CLINIC LUMBAR SP 2V CLINICAL HISTORY: Dx: Lumbar Radiculopathy. TECHNIQUE: Fluoroscopy was provided for the referring physician for guidance with performing pain clinic injection procedure. COMPARISON: No exams were available for comparison FINDINGS: Please see procedure note for details. Fluoro time: 19.8 seconds RADIATION DOSE DELIVERED: Ka,r=4.9 mGy
[2025-10-24 09:35] VITALS: BP 123/90; PULSE 78; RESP 18; TEMP 37; O2SAT 94
--- NOTE | 2025-10-24 09:56 | PDOC.PAIN_ITS ---
Date of service: 10/24/25 Time of Service: 10:34 Pain Managment Procedure Note Procedure Note Procedure Note: Caudal Epidural Steroid Injection ? Location: Caudal Epidural Space ?Pre-procedure Diagnosis: M54.17-Radiculopathy, lumbosacral region M96.1 Postlaminectomy syndrome, not elsewhere classified ? Post-procedure Diagnosis:? The same as above ? Sedation:? none? Estimated blood loss:? less than 2 ml ?Surgeon:? Salvatore Jang MD ? Procedure Detail:?? The procedure and potential risks were explained to the patient and informed written consent was obtained. The patient was escorted to the procedure room and placed in the prone position. Pillows were utilized for proper positioning and comfort. Time out was performed in the procedure room with nursing staff confirming the patient's identity, procedure to be performed, allergies, and any blood thinning or anti-platelet medications. The patient's lower back/coccyx area was prepped with ChloraPrep x2 and draped in a sterile fashion. Sterile technique was maintained throughout the procedure.? Sterile gloves were used, a face mask was worn, and new single dose vials of all medications were used with the top being swabbed with alcohol and given time to dry prior to withdrawal of medication. Subcutaneous 1% lidocaine was instilled into the superficial soft tissue of the patient's lower back/coccyx area for local anesthesia using a 25-gauge 1.5 inch needle. Under fluoroscopic guidance a 17G Tuohy needle was placed within the caudal canal. An 19 G Arrow catheter was directed cephalad to the RIGHT at L5. Omnipaque was not used because of sign ificant contrast allergy.? Placement was confirmed in AP and lateral projection. 80 mg of Depo-Medrol and 3 ml saline was injected without complication. The needle and catheter was removed intact. The patient tolerated the procedure well and was transported to the recovery area for observation and discharge instructions. Permanent images saved and recorded. Plan:? Follow prn. PAIN: PRE-PROCEDURE 8/10 POST-PROCEDURE 0/10 COMMENT: will repeat if patient gets long lasting relief Coding Conscious Sedation used for procedure: No CPT Codes: Inj Spine L/S w/Imaging - [id number] ([id number] ~G) Additional Codes: Date of Service () Diagnoses: M54.17-Radiculopathy, lumbosacral region M96.1 Postlaminectomy syndrome, not elsewhere classified
[2025-10-24 10:09] VITALS: PULSE 66; O2SAT 95
[2025-10-24 10:10] VITALS: PULSE 67; O2SAT 96
[2025-10-24 10:20] VITALS: PULSE 72; O2SAT 95
[2025-10-24] MEDS: Nerve Block Tray 1 EACH MC (10:33)
[2025-10-24] MEDS: methylPREDNISolone ACETATE 40 MG/ML VIAL IJ (10:33)
[2025-10-24] MEDS: Normal Saline 20 ML VIAL IJ (10:33)
== END 2025-10-24 09:43 | disposition home or self-care (01) ==
PROVIDERS: PCP Family Medicine; Visit Provider Anesthesiology Pain Medicine
DX: M54.50 Low back pain, unspecified (principal); M54.17 Radiculopathy, lumbosacral region; M96.1 Postlaminectomy syndrome, not elsewhere classified
CPT/HCPCS: 62323; 72100; J1010